=== PATIENT | female | born 1955 | race Caucasian/White ===

== ENCOUNTER 2017-07-22 09:02 | Inpatient (IN) | payer OTHER ==
[2017-07-22] MEDS ORDERED: IPRATROPIUM-ALBUTEROL 3 ML NEB INHALATION STA (09:07)
[2017-07-22] MEDS ORDERED: FUROSEMIDE 10 MG/ML 4 ML VIAL IV STA (09:07)
[2017-07-22] MEDS ORDERED: NITROGLYCERIN OINT 1 INCH/GM PACKET TOPICAL STA (09:07)
[2017-07-22 09:14] LABS: Glucose,Whole Blood 259 mg/dL (75-99)
--- NOTE | 2017-07-22 09:16 | ED ---
General Adult HPI - General Stated complaint: Difficulty Breathing Time Seen by Provider: 07/22/17 09:02 Source: RN notes reviewed - History of Present Illness Initial comments: This is a 61-year-old female presents emergency Department with an unknown past medical history. Patient states she woke up with difficulty breathing and she states she has no problems breathing in the past. Patient denies history of COPD or congestive heart failure. Patient denies any chest pain or palpitations. Patient's only complaint is that she can't breathe. Patient denies any recent history of fever chills or cough. Patient denies any calf tenderness. Patient denies any leg swelling. Patient denies headache patient denies numbness weakness. Patient denies lightheadedness dizziness or near syncopal episode. - Related Data Home Medications Medication Instructions Recorded Confirmed Escitalopram [Lexapro] 10 mg PO HS 07/22/17 07/22/17 Insulin NPH Hum/Reg Insulin Hm 15 unit SQ AC-SUPPER 07/22/17 07/22/17 [NovoLIN 70-30 100 UNIT/ML VIAL] Insulin NPH Hum/Reg Insulin Hm 20 unit SQ AC-BRKFST 07/22/17 07/22/17 [Novolin 70-30 100 Unit/ml Vial] Lisinopril [Zestril] 5 mg PO HS 07/22/17 07/22/17 Meloxicam 7.5 mg PO BID 07/22/17 07/22/17 Allergies Allergy/AdvReac Type Severity Reaction Status Date / Time No Known Allergies Allergy Verified 07/22/17 10:04 Review of Systems ROS Statement: Those systems with pertinent positive or pertinent negative responses have been documented in the HPI. ROS Other: All systems not noted in ROS Statement are negative. Past Medical History - Past Family History Father Family Medical History: Cancer Additional Family Medical History / Comment(s): Father of lung and prostate cancer at the age of 71 or 72 yrs. Mother Family Medical History: Coronary Artery Disease (CAD), CVA/TIA Additional Family Medical History / Comment(s): Mother of a CVA at the age of 87yrs. General Exam - General Exam Comments Initial Comments: GENERAL: Patient is well-developed and well-nourished. Patient is nontoxic and well- hydrated and is in moderate distress. ENT: Neck is soft and supple. No significant lymphadenopathy is noted. Oropharynx is clear. Moist mucous membranes. Neck has full range of motion without eliciting any pain. EYES: The sclera were anicteric and conjunctiva were pink and moist. Extraocular movements were intact and pupils were equal round and reactive to light. Eyelids were unremarkable. PULMONARY: Patient has crackles throughout bilaterally. CARDIOVASCULAR: Patient is tachycardic. ABDOMEN: Soft and nontender with normal bowel sounds. No palpable organomegaly was noted. There is no palpable pulsatile mass. SKIN: Skin is clear with no lesions or rashes and otherwise unremarkable. NEUROLOGIC: Patient is alert and oriented x3. Cranial nerves II through XII are grossly intact. Motor and sensory are also intact. Normal speech, volume and content. Symmetrical smile. MUSCULOSKELETAL: Normal extremities with adequate strength and full range of motion. Minimal edema bilaterally there is no calf tenderness. LYMPHATICS: No significant lymphadenopathy is noted PSYCHIATRIC: Normal psychiatric evaluation. Normal interpersonal interactions appears functionally intact in deals appropriately with others. No signs of depression. No signs of anxiety. Course Vital Signs 07/22/17 07/22/17 07/22/17 09:07 09:25 09:28 Temperature 97.0 F L Pulse Rate 137 H 127 H Respiratory 34 H Rate Blood Pressure 176/94 O2 Sat by Pulse 84 L Oximetry 07/22/17 07/22/17 07/22/17 09:35 10:05 11:00 Temperature Pulse Rate 129 H 110 H 110 H Respiratory 22 20 Rate Blood Pressure 172/77 160/70 O2 Sat by Pulse 96 100 Oximetry 07/22/17 11:58 Temperature Pulse Rate 100 Respiratory 18 Rate Blood Pressure 137/72 O2 Sat by Pulse 99 Oximetry Medical Decision Making - Medical Decision Making EKG shows sinus tachycardia at 137 bpm OK interval is 154 QRS is 94 QT interval 314 QTC is 474. Patient's EKG shows no ST segment elevation or depression or T wave abnormalities are noted. q waves inferiorly and anteriorly Patient's chest x-ray shows diffuse airspace disease. CAT scan shows no PE and again diffuse airspace disease. I put the patient on BiPAP because she was satting in the low 80s this brought her up into the mid 90s and she was much more comfortable. Patient received some Lasix because of the crackles in the lungs and she also received some steroid because of the diffuse airspace disease which could be secondary to pneumonitis. I spoke with Dr. Izaguirre and Dr. Antoine admitted the patient wrote admitting orders I put the patient in the unit. Dr. Antoine will come down to the emergency department to see the patient - Lab Data Result diagrams: 07/22/17 09:21 07/22/17 09:21 Lab Results 07/22/17 07/22/17 07/22/17 Range/Units 09:05 09:21 09:21 WBC 9.8 (3.8-10.6) k/uL RBC 4.70 (3.80-5.40) m/uL Hgb 13.9 (11.4-16.0) gm/dL Hct 45.0 (34.0-46.0) % MCV 95.8 (80.0-100.0) fL MCH 29.5 (25.0-35.0) pg MCHC 30.8 L (31.0-37.0) g/dL RDW 14.4 (11.5-15.5) % Plt Count 314 (150-450) k/uL Neutrophils % 62 % Lymphocytes % 26 % Monocytes % 5 % Eosinophils % 4 % Basophils % 1 % Neutrophils # 6.1 (1.3-7.7) k/uL Lymphocytes # 2.6 (1.0-4.8) k/uL Monocytes # 0.5 (0-1.0) k/uL Eosinophils # 0.4 (0-0.7) k/uL Basophils # 0.1 (0-0.2) k/uL Hypochromasia Moderate PT (9.0-12.0) sec INR (<1.2) APTT (22.0-30.0) sec D-Dimer (<0.60) mg/L FEU Sodium (137-145) mmol/L Potassium (3.5-5.1) mmol/L Chloride (98-107) mmol/L Carbon Dioxide (22-30) mmol/L Anion Gap mmol/L BUN (7-17) mg/dL Creatinine (0.52-1.04) mg/dL Est GFR (MDRD) Af Amer (>60 ml/min/1.73 sqM) Est GFR (MDRD) Non-Af (>60 ml/min/1.73 sqM) Glucose (74-99) mg/dL POC Glucose (mg/dL) 259 H (75-99) mg/dL POC Glu Nuclear Medicine Physician ID Luz Maria Sahu Plasma Lactic Acid Abdoul (0.7-2.0) mmol/L Calcium (8.4-10.2) mg/dL Magnesium (1.6-2.3) mg/dL Total Bilirubin (0.2-1.3) mg/dL AST (14-36) U/L ALT (9-52) U/L Alkaline Phosphatase (38-126) U/L Total Creatine Kinase 194 H (30-135) U/L CK-MB (CK-2) 1.6 (0.0-2.4) ng/mL CK-MB (CK-2) Rel Index 0.8 Troponin I <0.012 (0.000-0.034) ng/mL NT-Pro-B Natriuret Pep pg/mL Total Protein (6.3-8.2) g/dL Albumin (3.5-5.0) g/dL 07/22/17 07/22/17 07/22/17 Range/Units 09:21 09:21 09:21 WBC (3.8-10.6) k/uL RBC (3.80-5.40) m/uL Hgb (11.4-16.0) gm/dL Hct (34.0-46.0) % MCV (80.0-100.0) fL MCH (25.0-35.0) pg MCHC (31.0-37.0) g/dL RDW (11.5-15.5) % Plt Count (150-450) k/uL Neutrophils % % Lymphocytes % % Monocytes % % Eosinophils % % Basophils % % Neutrophils # (1.3-7.7) k/uL Lymphocytes # (1.0-4.8) k/uL Monocytes # (0-1.0) k/uL Eosinophils # (0-0.7) k/uL Basophils # (0-0.2) k/uL Hypochromasia PT 9.9 (9.0-12.0) sec INR 1.0 (<1.2) APTT 22.0 (22.0-30.0) sec D-Dimer 1.44 H (<0.60) mg/L FEU Sodium 142 (137-145) mmol/L Potassium 4.5 (3.5-5.1) mmol/L Chloride 104 (98-107) mmol/L Carbon Dioxide 26 (22-30) mmol/L Anion Gap 12 mmol/L BUN 24 H (7-17) mg/dL Creatinine 0.68 (0.52-1.04) mg/dL Est GFR (MDRD) Af Amer >60 (>60 ml/min/1.73 sqM) Est GFR (MDRD) Non-Af >60 (>60 ml/min/1.73 sqM) Glucose 291 H (74-99) mg/dL POC Glucose (mg/dL) (75-99) mg/dL POC Glu Nuclear Medicine Physician ID Plasma Lactic Acid Abdoul (0.7-2.0) mmol/L Calcium 8.9 (8.4-10.2) mg/dL Magnesium 1.8 (1.6-2.3) mg/dL Total Bilirubin 0.6 (0.2-1.3) mg/dL AST 89 H (14-36) U/L ALT 94 H (9-52) U/L Alkaline Phosphatase 170 H (38-126) U/L Total Creatine Kinase (30-135) U/L CK-MB (CK-2) (0.0-2.4) ng/mL CK-MB (CK-2) Rel Index Troponin I (0.000-0.034) ng/mL NT-Pro-B Natriuret Pep 561 pg/mL Total Protein 8.1 (6.3-8.2) g/dL Albumin 4.3 (3.5-5.0) g/dL 07/22/17 Range/Units 09:21 WBC (3.8-10.6) k/uL RBC (3.80-5.40) m/uL Hgb (11.4-16.0) gm/dL Hct (34.0-46.0) % MCV (80.0-100.0) fL MCH (25.0-35.0) pg MCHC (31.0-37.0) g/dL RDW (11.5-15.5) % Plt Count (150-450) k/uL Neutrophils % % Lymphocytes % % Monocytes % % Eosinophils % % Basophils % % Neutrophils # (1.3-7.7) k/uL Lymphocytes # (1.0-4.8) k/uL Monocytes # (0-1.0) k/uL Eosinophils # (0-0.7) k/uL Basophils # (0-0.2) k/uL Hypochromasia PT (9.0-12.0) sec INR (<1.2) APTT (22.0-30.0) sec D-Dimer (<0.60) mg/L FEU Sodium (137-145) mmol/L Potassium (3.5-5.1) mmol/L Chloride (98-107) mmol/L Carbon Dioxide (22-30) mmol/L Anion Gap mmol/L BUN (7-17) mg/dL Creatinine (0.52-1.04) mg/dL Est GFR (MDRD) Af Amer (>60 ml/min/1.73 sqM) Est GFR (MDRD) Non-Af (>60 ml/min/1.73 sqM) Glucose (74-99) mg/dL POC Glucose (mg/dL) (75-99) mg/dL POC Glu Nuclear Medicine Physician ID Plasma Lactic Acid Abdoul 2.9 H* (0.7-2.0) mmol/L Calcium (8.4-10.2) mg/dL Magnesium (1.6-2.3) mg/dL Total Bilirubin (0.2-1.3) mg/dL AST (14-36) U/L ALT (9-52) U/L Alkaline Phosphatase (38-126) U/L Total Creatine Kinase (30-135) U/L CK-MB (CK-2) (0.0-2.4) ng/mL CK-MB (CK-2) Rel Index Troponin I (0.000-0.034) ng/mL NT-Pro-B Natriuret Pep pg/mL Total Protein (6.3-8.2) g/dL Albumin (3.5-5.0) g/dL Critical Care Time Critical Care Time: Yes Total Critical Care Time: 40 Disposition Clinical Impression: Dyspnea Disposition: ADMITTED IP TO THIS [facility] Time of Disposition: 11:27
[2017-07-22 09:38] LABS: Basophils # (A) 0.1 k/uL (0-0.2); Basophils % (A) 1 %; CHCM 30.5; Eosinophils # (A) 0.4 k/uL (0-0.7); Eosinophils % (A) 4 %; HDW 2.37; HGB 13.9 gm/dL (11.4-16.0); Hypochromasia Moderate; Luc # (Auto) 0.19; Luc % (Auto) 2; Lymphocytes # (A) 2.6 k/uL (1.0-4.8); Lymphocytes % (A) 26 %; MCH 29.5 pg (25.0-35.0); MCHC 30.8 g/dL (31.0-37.0); MCV 95.8 fL (80.0-100.0); Mean Platelet Volume 7.9; Monocytes # (A) 0.5 k/uL (0-1.0); Monocytes % (A) 5 %; Neutrophils # (A) 6.1 k/uL (1.3-7.7); Neutrophils % (A) 62 %; RDW 14.4 % (11.5-15.5); WBC 9.8 k/uL (3.8-10.6); WBC (Perox) 10.17
[2017-07-22 09:55] LABS: Prothrombin Time 9.9 sec (9.0-12.0)
[2017-07-22 09:57] LABS: ALT 94 U/L (9-52); AST 89 U/L (14-36); Alkaline Phosphatase 170 U/L (38-126); Anion Gap 12 mmol/L; Blood Urea Nitrogen 24 mg/dL (7-17); Calcium 8.9 mg/dL (8.4-10.2); Carbon Dioxide 26 mmol/L (22-30); Chloride 104 mmol/L (98-107); Creatine Kinase 194 U/L (30-135); Glucose 291 mg/dL (74-99); Magnesium 1.8 mg/dL (1.6-2.3); Non-African American GFR(MDRD) >60 (>60 ml/min/1.73 sqM); Sodium 142 mmol/L (137-145); Total Bilirubin 0.6 mg/dL (0.2-1.3); Total Protein 8.1 g/dL (6.3-8.2)
[2017-07-22 09:59] LABS: Potassium 4.5 mmol/L (3.5-5.1)
--- NOTE | 2017-07-22 10:00 | XR ---
EXAMINATION TYPE: XR chest 1V portable DATE OF EXAM: 07/22/2017 HISTORY: difficulty breathing. REFERENCE: NONE. FINDINGS: There is diffuse opacification of both lungs with air bronchograms. This may represent bila teral pneumonia or confluent edema. Heart size is obscured. Both CP angles are somewhat blunted. I co uld not exclude small effusions. IMPRESSION: DIFFUSE, BILATERAL AIRSPACE DISEASE.
[2017-07-22 10:09] LABS: Creatine Kinase MB 1.6 ng/mL (0.0-2.4); Troponin I <0.012 ng/mL (0.000-0.034)
[2017-07-22] MEDS ORDERED: RX INFO: IV CONTRAST WAS GIVEN 1 EACH MISC MISCELLANE PRN (10:11)
[2017-07-22] MEDS ORDERED: methylPREDNISolone SOD SUCCI 125 MG/2 ML VIAL IV STA (10:12)
--- NOTE | 2017-07-22 11:17 | CT ---
EXAMINATION TYPE: CT chest angio for PE DATE OF EXAM: 07/22/2017 COMPARISON: NONE HISTORY: Difficulty breathing CT DLP: 548 mGycm Automated exposure control for dose reduction was used. CONTRAST: CT Chest for pulmonary embolism performed with with IV Contrast, patient injected with 100 mL of Omni paque 350. FINDINGS: There is patchy, diffuse groundglass opacification of both lungs. There is no pleural or pe ricardial fluid. The heart is mildly enlarged. There is some shotty axillary adenopathy. There is no internal mammary, mediastinal or definite hilar adenopathy. I do not see evidence of pulmonary embolus. The aorta is normal in caliber without evidence of dissection. There is a small hiatal hernia. Visualized portions of the upper abdomen are otherwise unremarkable. There is mild hypertrophic spondylosis within the spine. There are sclerotic endplate changes at mult iple levels. IMPRESSION: 1. THIS EXAMINATION IS NEGATIVE FOR PULMONARY EMBOLUS. 2. DIFFUSE GROUNDGLASS OPACITY THROUGHOUT BOTH LUNGS. DIFFERENTIAL DIAGNOSIS INCLUDES INTERSTITIAL PN EUMONIA, HYPERSENSITIVITY PNEUMONITIS, DRUG REACTION AND MULTIFOCAL PNEUMONIA. BRONCHOSCOPY WITH ENDO BRONCHIAL WASHINGS WOULD BE SUGGESTED. 3. MILD CARDIOMEGALY.
[2017-07-22] MEDS ORDERED: LEVOFLOXACIN 750MG-D5W PMX 750 MG in DEXTROSE/WATER 1 150ML.BAG IVPB STA (11:28)
[2017-07-22] MEDS ORDERED: NALOXONE 0.4 MG/ML 1 ML VIAL IV PRN (11:29)
[2017-07-22 11:55] LABS: ABG HCO3 31 mmol/L (21-25); ABG PCO2 60 mmHg (35-45); ABG PH 7.33 (7.35-7.45); ABG PO2 72 mmHg (83-108); ABG TCO2 33 mmol/L (19-24)
--- NOTE | 2017-07-22 12:49 | P.CNPUL ---
History of Present Illness Consult date: 07/22/17 Reason for consult: dyspnea, hypoxemia History of present illness: This is a morbidly obese 61-year-old female patient who lives independently at home. The patient has no immediate family members. Her parents of complications of diabetes mellitus and heart disease. She also has no siblings. There is a friend that came with this patient here to the emergency department. Apparently over the past few days the patient was progressively getting more short of breath. This morning she became significantly dyspneic. She reported that she was unable to breathe and perform activities of daily today life. For that reason she called EMS and she was brought into the hospital. She had limited cough. No significant sputum production. No fever chills or night sweats. No hemoptysis. No pleurisy. No angina. No chest pain. No palpitations. No calf tenderness. There is chronic lower extremity edema which has gotten slightly worse over the past few days. She is diabetic. EKG on arrival showed Q waves throughout the leads extending from V1 through V6 and the patient has poor R-wave progression. The chest x-ray showed diffuse bilateral pulmonary infiltrates and following that the patient a CAT scan of the chest which showed patchy diffuse groundglass opacification of the lungs bilaterally. There is also some more consolidation of the lung bases. Minimal mediastinal lymphadenopathy. No evidence of pulmonary embolism. No evidence of any pleural or pericardial effusion. The heart is mildly enlarged. The first set of cardiac enzyme was negative. The proBNP level is at 561. The rest of the blood work and advised are all within normal limits. The patient was placed on a BiPAP at a pressure of 12/6 cm of water with an FiO2 of 100%. The patient was also given a dose of Lasix 40 mg IV push. I this patient emergency department. The patient was tolerating the BiPAP and his saturation was above 90%. Nevertheless she was still short of breath even while in the BiPAP. She was unable to speak in full sentences. She was a bit uncomfortable and diaphoretic. She was alert and conscious and she was able to respond to questions appropriately. She denies having any previous pneumonias. No history of smoking. Most of asthma. Most of emphysema. No exposure to any organic or inorganic material. She has a cat at home. No other significant exposures or travel history. No sick contacts. No hemoptysis. No 70 connected tissue disease or vasculitis or lupus. A stat echocardiogram was done at the bedside and the patient was found to have a. LV function with significant anteroseptal and apical akinesis. The contractility was essentially in the mid ventricle and there was some ballooning of the LV and no significant valvular disruption was noted. Ejection fraction was estimated to be around 25-30%. The patient will be taken to the intensive care unit. I briefly discussed with her the possibility of being intubated and placed on a mechanical ventilator. She was a bit hesitant to this idea knowing that she has no other family members at least for now to make decisions for her if she is completely out under the effect of sedatives. A Pizano catheter will be inserted. On examination the patient is bronchus spastic and wheezy and she is crackling in the mid and lower lung hanna bilaterally. Review of Systems Constitutional: Reports fatigue, Reports weakness Eyes: denies blurred vision, denies bulging eye, denies decreased vision Ears: deny: decreased hearing, ear discharge, earache Ears, nose, mouth and throat: Denies headache, Denies sore throat Cardiovascular: Reports decreased exercise tolerance, Reports rapid heart beat, Reports shortness of breath Respiratory: Reports cough, Reports dyspnea, Reports wheezing Gastrointestinal: Denies abdominal pain, Denies diarrhea, Denies nausea, Denies vomiting Genitourinary: Denies dysuria, Denies hematuria Musculoskeletal: Denies myalgias Integumentary: Denies pruritus, Denies rash Neurological: Denies numbness, Denies weakness Psychiatric: Reports depression Endocrine: Reports as per HPI (Patient has history of diabetes mellitus that seems to be under poor control.) Past Medical History Past Medical History: Diabetes Mellitus, GERD/Reflux, Hyperlipidemia, Hypertension, Osteoarthritis (OA) Additional Past Medical History / Comment(s): Obesity, episodes of bronchitis treated on outpatient basis, diabetes mellitus, depression, osteoarthritis, current cat scratches bilateral legs, arthritis bilateral knees. History of Any Multi-Drug Resistant Organisms: None Reported Past Surgical History: Tonsillectomy Additional Past Surgical History / Comment(s): D&C x 2 Past Anesthesia/Blood Transfusion Reactions: No Reported Reaction Smoking Status: Former smoker - Past Family History Father Family Medical History: Cancer Additional Family Medical History / Comment(s): Father of lung and prostate cancer at the age of 71 or 72 yrs. Mother Family Medical History: Coronary Artery Disease (CAD), CVA/TIA Additional Family Medical History / Comment(s): Mother of a CVA at the age of 87yrs. Medications and Allergies Home Medications Medication Instructions Recorded Confirmed Type Escitalopram [Lexapro] 10 mg PO HS 07/22/17 07/22/17 History Insulin NPH Hum/Reg Insulin Hm 15 unit SQ AC-SUPPER 07/22/17 07/22/17 History [NovoLIN 70-30 100 UNIT/ML VIAL] Insulin NPH Hum/Reg Insulin Hm 20 unit SQ AC-BRKFST 07/22/17 07/22/17 History [Novolin 70-30 100 Unit/ml Vial] Lisinopril [Zestril] 5 mg PO HS 07/22/17 07/22/17 History Meloxicam 7.5 mg PO BID 07/22/17 07/22/17 History Allergies Allergy/AdvReac Type Severity Reaction Status Date / Time No Known Allergies Allergy Verified 07/22/17 10:04 Physical Exam Vitals: Vital Signs Temp Pulse Resp BP Pulse Ox 07/22/17 11:58 100 18 137/72 99 07/22/17 11:00 110 H 20 160/70 100 07/22/17 10:05 110 H 22 172/77 96 07/22/17 09:35 129 H 07/22/17 09:28 176/94 07/22/17 09:25 127 H 07/22/17 09:07 97.0 F L 137 H 34 H 84 L Intake and Output 07/21/17 07/22/17 07/22/17 22:59 06:59 14:59 Other: Weight 102.058 kg Patient Weight 07/23/17 06:59 Weight 102.058 kg The patient is anxious and apprehensive. She is able to tolerate a full face mask attached to a BiPAP unit. She is a bit short of breath even while being on BiPAP in not using excessive muscle breathing yet.Head exam was generally normal. There was no scleral icterus or corneal arcus. Mucous membranes were moist. Neck is short and supple and I was unable to appreciate any JVDs no goiter or neck masses. Lungs sounds are diminished and there are crackles throughout the lung his bilaterally and there is also scattered rhonchi and extremity wheezes throughout the lung hanna. Heart sounds are distant. The lung sounds are quite loud and an echo assessment of the S1-S2 cannot be done. No significant murmurs appreciated.Abdominal exam revealed normal bowel sounds. The abdomen was soft, non-tender, and without masses, organomegaly, or appreciable enlargement of the abdominal aorta. Extremities show trace edema and the patient has scratch uribe and abrasions related to cat scratch. No cephalitis. No cyanosis. No clubbing. Neurologically the patient is awake and alert and she is moving all 4 extremities without any limitation. Psychiatrically she is anxious. She has history of depression. Skin no open wounds or ulcerations this point no cerebritis. Results - Laboratory Findings CBC and BMP: 07/22/17 09:21 07/22/17 09:21 ABG ABG pH 7.33 (7.35-7.45) L 07/22/17 11:53 ABG pCO2 60 mmHg (35-45) H 07/22/17 11:53 ABG pO2 72 mmHg (83-108) L 07/22/17 11:53 ABG O2 Saturation 93.0 % (94-97) L 07/22/17 11:53 PT/INR, D-dimer PT 9.9 sec (9.0-12.0) 07/22/17 09:21 INR 1.0 (<1.2) 07/22/17 09:21 D-Dimer 1.44 mg/L FEU (<0.60) H 07/22/17 09:21 Abnormal lab findings: Abnormal Labs 07/22/17 07/22/17 07/22/17 09:05 09:21 09:21 MCHC 30.8 L D-Dimer ABG pH ABG pCO2 ABG pO2 ABG HCO3 ABG Total CO2 ABG O2 Saturation BUN Glucose POC Glucose (mg/dL) 259 H Plasma Lactic Acid Abdoul AST ALT Alkaline Phosphatase Total Creatine Kinase 194 H 07/22/17 07/22/17 07/22/17 09:21 09:21 09:21 MCHC D-Dimer 1.44 H ABG pH ABG pCO2 ABG pO2 ABG HCO3 ABG Total CO2 ABG O2 Saturation BUN 24 H Glucose 291 H POC Glucose (mg/dL) Plasma Lactic Acid Abdoul 2.9 H* AST 89 H ALT 94 H Alkaline Phosphatase 170 H Total Creatine Kinase 07/22/17 11:53 MCHC D-Dimer ABG pH 7.33 L ABG pCO2 60 H ABG pO2 72 L ABG HCO3 31 H ABG Total CO2 33 H ABG O2 Saturation 93.0 L BUN Glucose POC Glucose (mg/dL) Plasma Lactic Acid Abdoul AST ALT Alkaline Phosphatase Total Creatine Kinase - Diagnostic Findings Chest x-ray: image reviewed CT scan - chest: image reviewed Assessment and Plan Assessment: Assessment 1 acute hypoxic respiratory failure with development of diffuse bilateral ground glass pulmonary infiltrates scattered throughout the lung hanna along with alveolar consolidation of the lung bases. The exact cause is not clear. Rule out cardiogenic pulmonary edema on top of an underlying pneumonia. Rule out noncardiogenic pulmonary edema as including interstitial pneumonias, interstitial lung disease including use of the eosinophilic pneumonias, hypersensitivity pneumonias, acute lung injury from any other nonspecific exposures/infections. 2 acute BiPAP dependent respiratory failure 3 CHF with impaired LV function, awaiting final report on echocardiogram 4 diffuse Q waves extending V1 through V6 with poor R-wave progression suggestive of previous silent myocardial infarction setting of diabetes mellitus 5 diabetes mellitus 6 obesity 7 arthritis 8 anxiety/depression Plan Move the patient immediately to the intensive care unit. Put the patient on a monitor. Monitor the pulmonary status very closely with constellation of intubation mechanical ventilation there is any further compensation decompensation the pulmonary status. Meanwhile we'll insert the Pizano catheter. We'll start the patient on Lasix drip at 5 mg an hour. We'll cover this patient with broad-spectrum antibiotics. The choice of antibiotics will be a combination of Zosyn and Levaquin. Check a Legionella urine antigen. Check sputum Gram stain and culture if possible. Start the patient IV Solu- Medrol. Start the patient on insulin drip for blood sugar control. Start the patient on Lovenox 40 mg subcu for DVT prophylaxis. IV Protonix. Bronchodilators [id number]. Monitor blood gases. Cardiology consultation. Monitor cardiac enzymes. Blood cultures. Bronchoscopy obviously is an option specially the patient get intubated over the next 24-48 hours. We'll need to establish her legal guardian should the patient going to respiratory failure that she is unable to make her own decisions. Condition is extremely critical at this point. Time with Patient: Greater than 30
[2017-07-22] MEDS ORDERED: INSULIN REGULAR BOLUS (FROM DRIP BAG) IV PRN ×2 (12:51→14:20)
[2017-07-22 12:58] LABS: Glucose,Whole Blood 310 mg/dL (75-99)
[2017-07-22] MEDS: FUROSEMIDE 250 MG in SODIUM CHLORIDE 0.9% 225 ML IVP SCH (13:38)
[2017-07-22] MEDS: ENOXAPARIN 40 MG/0.4 ML SYRINGE SQ SCH (13:44)
--- NOTE | 2017-07-22 14:18 | P.HPIM ---
History of Present Illness H&P Date: 07/22/17 Chief Complaint: Shortness of breath 61-year-old female who presented to the emergency room on 07/22/2017 with a chief complaint of difficulty in breathing. The patient states she was getting ready for work this morning and was so short of breath she was unable to get ready this morning. The patient denied any other symptoms, but stated she was unable to breathe. The patient lives alone, so she called her friend to bring her to the emergency room for evaluation. Upon evaluation in the emergency room, she was noted to be tachycardic with a rate in the 130s. Her oxygen saturations were in the low 80s. She was placed on a BiPAP at 100% FiO2. A x-ray of the chest was completed which shows diffuse airspace disease. Her d-dimer was elevated upon admission at 1.44. A CT of the chest was completed which was negative for pulmonary embolism. An EKG was completed which shows sinus tachycardia with a rate in the 130s. It did show Q waves in leads V1 through V6. In the emergency room the patient received a dose of IV Lasix and also IV steroids. Her lactic acid on admission was 2.9. First troponin was negative. BNP was 561. White count was 9.8, hemoglobin 13.9, sodium 142, potassium 4.5. The patient has a history of diabetes mellitus, GERD, hypertension, osteoarthritis, hyperlipidemia, anxiety, and depression. She is a former smoker. The patient was admitted to the intensive care unit for close observation and monitoring under the care of Dr. Izaguirre. Consultations were placed to pulmonary, Dr. Antoine. The patient was seen and examined at the bedside by Dr. Izaguirre. She is currently wearing a BiPAP 100% FiO2. Recent ABGs show a pH of 7.33, CO2 of 60, pO2 of 72, and bicarb of 31. She states her breathing feels slightly improved since this morning. Her blood pressure is stable at the last reading of 137/ 72. She does remain slightly tachycardic with a rate between 100-110. Blood cultures were drawn and are pending. The patient states she has a cat at home and the patient has numerous scratches to her bilateral lower extremities. The patient was placed on a Lasix drip and insulin drip per pulmonary. An indwelling urinary catheter has been inserted. The patient has been placed on Zosyn and Levaquin. An echocardiogram was ordered and results are currently pending. Review of Systems GENERAL: Patient denies fever. Denies chills. EYES: Denies blurred vision. Denies vision changes. Denies eye pain. EARS, NOSE, MOUTH, & THROAT: Denies headache. Denies sore throat. Denies ear pain. RESPIRATORY: Positive for shortness of breath. Denies cough. Denies sputum production. Denies hemoptysis. CARDIOVASCULAR: Denies chest pain or pressure. Denies palpitations. Denies arrhythmias. GASTROINTESTINAL: Denies abdominal pain. Denies diarrhea. Denies constipation. Denies nausea. Denies vomiting. Denies heartburn. Denies blood in the stool. GENITOURINARY: Denies urinary frequency. Denies burning. Denies dysuria. Denies cloudy urine. Denies blood in the urine. MUSCULOSKELETAL: Denies myalgias. Denies joint swelling. Denies decreased range of motion beyond patients baseline. INTEGUMENTARY: Positive for multiple scratches to lower extremities from cat. Denies pruitis. Denies rash. PSYCHIATRIC: Positive for anxiety. Denies suicidal or homicial ideations. ENDOCRINE: Denies weight change. Denies polydipsia. Denies polyuria. HEMATOLOGIC: Denies bleeding disorders. Past Medical History Past Medical History: Diabetes Mellitus, GERD/Reflux, Hyperlipidemia, Hypertension, Osteoarthritis (OA) Additional Past Medical History / Comment(s): Bronchitis, current cat scratches bilateral legs, arthritis bilateral knees. History of Any Multi-Drug Resistant Organisms: None Reported Past Surgical History: Tonsillectomy Additional Past Surgical History / Comment(s): D&C x 2 Past Anesthesia/Blood Transfusion Reactions: No Reported Reaction Smoking Status: Former smoker - Past Family History Father Family Medical History: Cancer Additional Family Medical History / Comment(s): Father of lung and prostate cancer at the age of 71 or 72 yrs. Mother Family Medical History: Coronary Artery Disease (CAD), CVA/TIA Additional Family Medical History / Comment(s): Mother of a CVA at the age of 87yrs. Medications and Allergies Home Medications Medication Instructions Recorded Confirmed Type Escitalopram [Lexapro] 10 mg PO HS 07/22/17 07/22/17 History Insulin NPH Hum/Reg Insulin Hm 15 unit SQ AC-SUPPER 07/22/17 07/22/17 History [NovoLIN 70-30 100 UNIT/ML VIAL] Insulin NPH Hum/Reg Insulin Hm 20 unit SQ AC-BRKFST 07/22/17 07/22/17 History [Novolin 70-30 100 Unit/ml Vial] Lisinopril [Zestril] 5 mg PO HS 07/22/17 07/22/17 History Meloxicam 7.5 mg PO BID 07/22/17 07/22/17 History Allergies Allergy/AdvReac Type Severity Reaction Status Date / Time No Known Allergies Allergy Verified 07/22/17 10:04 Physical Exam Vitals: Vital Signs Temp Pulse Resp BP Pulse Ox 07/22/17 11:58 100 18 137/72 99 07/22/17 11:00 110 H 20 160/70 100 07/22/17 10:05 110 H 22 172/77 96 07/22/17 09:35 129 H 07/22/17 09:28 176/94 07/22/17 09:25 127 H 07/22/17 09:07 97.0 F L 137 H 34 H 84 L Intake and Output 07/21/17 07/22/17 07/22/17 22:59 06:59 14:59 Other: Weight 102.058 kg Patient Weight 07/23/17 06:59 Weight 102.058 kg GENERAL: This is a obese 61-year-old female who appears slightly anxious at the time of examination. Pleasant and cooperative. HEENT: Head is atraumatic, normocephalic. Pupils are equal, round, and reactive to light. Sclerae anicteric. Conjunctivae are clear. Mucus membranes of the mouth are moist. Neck is supple. RESPIRATORY: Decreased air exchange. Lungs coarse throughout. Diminished at the bases. Patient maintaining oxygen saturation greater than 92% on BiPAP. No chest wall tenderness is noted on palpation or with deep breathing. CARDIOVASCULAR: Tachycardic. Regular rate and rhythm. S1 and S2 noted. No systolic or diastolic murmur auscultated. No JVD noted. No S3 or S4 noted. GASTROINTESTINAL: No distention noted. Abdomen soft and round. Normal active bowel sounds auscultated x4 quadrants. No pain or tenderness noted upon palpation. INTEGUMENTARY: Multiple cat scratches noted to bilateral lower extremities. No cyanosis. No jaundice. No rashes noted. No cellulitis noted. EXTREMITIES: 2+ peripheral pulses. +2 lower exterminate bilateral edema. No calf tenderness noted. NEUROLOGIC: Cranial nerves II-XII intact. PSYCHIATRIC: Awake, alert, and oriented X 3. Anxious. Appropriate affect. Intact judgement and insight. Results CBC & Chem 7: 07/22/17 09:21 07/22/17 09:21 Labs: Abnormal Lab Results - Last 24 Hours (Table) 07/22/17 07/22/17 07/22/17 Range/Units 09:05 09:21 09:21 MCHC 30.8 L (31.0-37.0) g/dL D-Dimer (<0.60) mg/L FEU ABG pH (7.35-7.45) ABG pCO2 (35-45) mmHg ABG pO2 (83-108) mmHg ABG HCO3 (21-25) mmol/L ABG Total CO2 (19-24) mmol/L ABG O2 Saturation (94-97) % BUN (7-17) mg/dL Glucose (74-99) mg/dL POC Glucose (mg/dL) 259 H (75-99) mg/dL Plasma Lactic Acid Abdoul (0.7-2.0) mmol/L AST (14-36) U/L ALT (9-52) U/L Alkaline Phosphatase (38-126) U/L Total Creatine Kinase 194 H (30-135) U/L 07/22/17 07/22/17 07/22/17 Range/Units 09: 09:21 09:21 MCHC (31.0-37.0) g/dL D-Dimer 1.44 H (<0.60) mg/L FEU ABG pH (7.35-7.45) ABG pCO2 (35-45) mmHg ABG pO2 (83-108) mmHg ABG HCO3 (21-25) mmol/L ABG Total CO2 (19-24) mmol/L ABG O2 Saturation (94-97) % BUN 24 H (7-17) mg/dL Glucose 291 H (74-99) mg/dL POC Glucose (mg/dL) (75-99) mg/dL Plasma Lactic Acid Abdoul 2.9 H* (0.7-2.0) mmol/L AST 89 H (14-36) U/L ALT 94 H (9-52) U/L Alkaline Phosphatase 170 H (38-126) U/L Total Creatine Kinase (30-135) U/L 07/22/17 Range/Units 11:53 MCHC (31.0-37.0) g/dL D-Dimer (<0.60) mg/L FEU ABG pH 7.33 L (7.35-7.45) ABG pCO2 60 H (35-45) mmHg ABG pO2 72 L (83-108) mmHg ABG HCO3 31 H (21-25) mmol/L ABG Total CO2 33 H (19-24) mmol/L ABG O2 Saturation 93.0 L (94-97) % BUN (7-17) mg/dL Glucose (74-99) mg/dL POC Glucose (mg/dL) (75-99) mg/dL Plasma Lactic Acid Abdoul (0.7-2.0) mmol/L AST (14-36) U/L ALT (9-52) U/L Alkaline Phosphatase (38-126) U/L Total Creatine Kinase (30-135) U/L Thrombosis Risk Factor Assmnt - Choose All That Apply Any of the Below Risk Factors Present?: Yes Each Factor Represents 1 point: Age 41-60 years, Obesity (BMI >25) Other Risk Factors: No Other congenital or acquired thrombophilia - If yes, enter type in comment: No Thrombosis Risk Factor Assessment Total Risk Factor Score: 2 Thrombosis Risk Factor Assessment Level: Low Risk Assessment and Plan Plan: ASSESSMENT: Acute hypoxic respiratory failure requiring BiPAP, present on admission, etiology unclear, rule out underlying cardiac etiology Acute exacerbation of congestive heart failure with impaired LV function, echo results pending EKG with Q waves in leads V1 through V6 with poor R-wave progression suggesting previous silent myocardial infarction Diabetes mellitus, type II, hemoglobin A1c pending Elevated d-dimer, CT of the chest negative for pulmonary embolus Gastroesophageal reflux disease History of tobacco abuse, in remission, patient quit smoking in 2004 Osteoarthritis Anxiety, unspecified Depression, unspecified Obesity: BMI 38.6 PLAN: -ICU management per cartographic aide -Cardiology consulted. Await recommendations and input -First troponin negative, order additional troponin q6 x2 -Continue BiPAP. 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 -Continue IV steroids: 60 mg IV every 6 hours -Insulin drip per cartographic aide order, monitor capillary blood glucose levels -Continue antibiotics: Zosyn and Levaquin -Lasix drip per cartographic aide order -Indwelling urinary catheter with accurate I's and O's -Obtain hemoglobin A1c, C-reactive protein, and sedimentation rate -Await blood culture results -Await echo results -Home meds as appropriate -Monitor labs -GI prophylaxis: Protonix 40 mg IV daily -DVT prophylaxis: Lovenox 40 mg subcu daily -Prognosis remains guarded as patient's condition is critical at this point Nurse practitioner note has been reviewed by physician. Signing provider agrees with the documented findings, assessment, and plan of care.
[2017-07-22] MEDS ORDERED: INSULIN REGULAR 100 UNIT in SODIUM CHLORIDE 0.9% 100 ML IV SCH (14:30)
--- NOTE | 2017-07-22 14:42 | PCN ---
PROCEDURE NOTE TRIPLE LUMEN CATHETER PLACEMENT: SITE OF INSERTION: Right femoral vein. PREOP DIAGNOSIS: Acute hypoxic respiratory failure. POSTOP DIAGNOSIS: Acute hypoxic respiratory failure. Indication Hemodynamic monitoring/Intravenous access. A time-out was completed verifying correct patient, procedure, site, positioning, and implant(s) or special equipment if applicable. The patient was placed in a dependent position appropriate for triple lumen catheter placement based on the vein to be cannulated. The patient's right groin was prepped and draped in sterile fashion. 1% Lidocaine was used to anesthetize the surrounding skin area. A triple lumen 9F Cordis catheter was introduced into the common femoral vein using Seldinger technique. The catheter was threaded smoothly over the guide wire and appropriate blood return was obtained. Each lumen of the catheter was evacuated of air and flushed with sterile saline. The catheter was then sutured in place to the skin and a sterile dressing applied. Perfusion to the extremity distal to the point of catheter insertion was checked and found to be adequate. No bedside complications. MMODL / IJN: [id number] /
[2017-07-22 15:26] LABS: Glucose,Whole Blood 295 mg/dL (75-99)
[2017-07-22] MEDS: PANTOPRAZOLE 40 MG/10 ML VIAL IVP SCH (15:37)
[2017-07-22] MEDS ORDERED: ACETAMINOPHEN TAB 325 MG TAB PO PRN (15:47)
[2017-07-22 16:24] LABS: Glucose,Whole Blood 194 mg/dL (75-99)
[2017-07-22] MEDS: PIPERACILLIN-TAZOBACTAM 3.375 GM in DEXTROSE/WATER 1 50ML.BAG IVPB SCH ×2 (16:53→23:36)
[2017-07-22] MEDS: SODIUM CHLORIDE 0.9% 1,000 ML IV SCH (16:58)
[2017-07-22 17:01] LABS: Glucose,Whole Blood 125 mg/dL (75-99)
[2017-07-22] MEDS ORDERED: methylPREDNISolone SOD SUCCI 125 MG/2 ML VIAL IV SCH (18:00)
[2017-07-22] MEDS: methylPREDNISolone SOD SUCCI 125 MG/2 ML VIAL IV SCH ×2 (18:08→23:35)
[2017-07-22 18:14] LABS: Glucose,Whole Blood 86 mg/dL (75-99)
[2017-07-22 18:31] LABS: Glucose,Whole Blood 96 mg/dL (75-99)
[2017-07-22 19:02] LABS: Glucose,Whole Blood 117 mg/dL (75-99)
[2017-07-22 20:04] LABS: Glucose,Whole Blood 165 mg/dL (75-99)
[2017-07-22 21:12] LABS: Glucose,Whole Blood 174 mg/dL (75-99)
[2017-07-22] MEDS: METOPROLOL TARTRATE 25 MG TAB PO SCH (21:13)
[2017-07-22 22:02] LABS: Glucose,Whole Blood 181 mg/dL (75-99)
--- NOTE | 2017-07-22 22:29 | P.CRDCN ---
History of Present Illness Consult date: 07/22/17 Chief complaint: Shortness of breath History of present illness: This is a pleasant 61 year old female patient with a past medical history significant for morbid obesity, diabetes, hypertension, and dyslipidemia without any history of coronary artery disease or congestive heart failure or cardiac arrhythmia who never seen any bellhop captain in the past was brought to the emergency room by ambulance with shortness of breath. The patient was in her usual state of health until earlier today when she developed a sudden onset of shortness of breath. She did not have any symptoms of chest pain or chest discomfort. No dizziness or lightheadedness. No syncope. The patient lives by herself. A friend of hers called the ambulance and the patient was brought to the emergency room where she was found to be in acute respiratory distress and she was hypoxic and was placed on BiPAP. The patient underwent a CTA of the chest which showed no evidence of PE. The chest x-ray showed finding consistent with bilateral infiltrate and possible CHF. The EKG showed sinus rhythm with poor R-wave progression and what it seems to be Q-wave across the whole chest leads. The patient seems that she suffered an acute anterolateral septal myocardial infarction in the past. An echocardiogram was performed at bedside and revealed severe lead impaired LV function with an ejection fraction around 30-35% with mid ventricle and apical hypokinesia and only portions of the LV arlen are the basal LV only. The first set of cardiac enzymes came in to be unremarkable but subsequently the second set came in to be mildly abnormal. The patient was admitted to the intensive care unit. She was started on Lasix drip. She was also on BiPAP. I did start the patient on beta harley, AP inhibitor, and statin. She was already on aspirin which I continued. Continue heparin IV. I will follow-up with the serial cardiac enzymes to assess if the patient suffered an acute coronary syndrome. She stated that she never had any heart catheterization in the past and never seen any bellhop captain in the past. And again she stated that she did not have any symptoms of chest pain or chest discomfort. Past Medical History Past Medical History: Diabetes Mellitus, GERD/Reflux, Hyperlipidemia, Hypertension, Osteoarthritis (OA) Additional Past Medical History / Comment(s): Bronchitis, current cat scratches bilateral legs, arthritis bilateral knees. History of Any Multi-Drug Resistant Organisms: None Reported Past Surgical History: Tonsillectomy Additional Past Surgical History / Comment(s): D&C x 2 Past Anesthesia/Blood Transfusion Reactions: No Reported Reaction Past Psychological History: Anxiety, Depression Additional Psychological History / Comment(s): Pt resides alone. She does not drive, a friend takes her to [email or web address]. She works at [email or web address]. Smoking Status: Former smoker Past Alcohol Use History: None Reported Additional Past Alcohol Use History / Comment(s): Pt started smoking in 1977 and quit in 2004. Past Drug Use History: None Reported - Past Family History Father Family Medical History: Cancer Additional Family Medical History / Comment(s): Father of lung and prostate cancer at the age of 71 or 72 yrs. Mother Family Medical History: Coronary Artery Disease (CAD), CVA/TIA Additional Family Medical History / Comment(s): Mother of a CVA at the age of 87yrs. Medications and Allergies Home Medications Medication Instructions Recorded Confirmed Type Escitalopram [Lexapro] 10 mg PO HS 07/22/17 07/22/17 History Insulin NPH Hum/Reg Insulin Hm 15 unit SQ AC-SUPPER 07/22/17 07/22/17 History [NovoLIN 70-30 100 UNIT/ML VIAL] Insulin NPH Hum/Reg Insulin Hm 20 unit SQ AC-BRKFST 07/22/17 07/22/17 History [Novolin 70-30 100 Unit/ml Vial] Lisinopril [Zestril] 5 mg PO HS 07/22/17 07/22/17 History Meloxicam 7.5 mg PO BID 07/22/17 07/22/17 History Allergies Allergy/AdvReac Type Severity Reaction Status Date / Time No Known Allergies Allergy Verified 07/22/17 10:04 Physical Exam Vitals: Vital Signs Temp Pulse Pulse Resp BP Pulse Ox 07/22/17 19:00 88 11 L 157/57 94 L 07/22/17 18:30 89 16 133/72 100 07/22/17 18:00 97 42 H 118/52 100 07/22/17 17:30 77 25 H 128/54 98 07/22/17 17:00 87 24 160/68 99 07/22/17 16:30 91 20 152/66 98 07/22/17 16:03 99 07/22/17 16:00 99 F 89 23 142/57 99 07/22/17 15:30 89 27 H 158/67 99 07/22/17 15:00 97 27 H 170/72 98 07/22/17 14:30 96 32 H 154/72 97 07/22/17 14:00 101 H 22 168/61 97 07/22/17 13:55 103 H 07/22/17 13:30 102 H 27 H 172/62 98 07/22/17 13:20 106 H 41 H 171/69 98 07/22/17 13:10 106 H 25 H 179/66 96 07/22/17 13:00 105 H 27 H 179/66 97 07/22/17 12:56 99 F 106 H 36 H 179/66 91 L 07/22/17 11:58 100 18 137/72 99 07/22/17 11:00 110 H 20 160/70 100 07/22/17 10:05 110 H 22 172/77 96 07/22/17 09:35 129 H 07/22/17 09:28 176/94 07/22/17 09:25 127 H 07/22/17 09:07 97.0 F L 137 H 34 H 84 L Intake and Output 07/22/17 07/22/17 07/22/17 06:59 14:59 22:59 Intake Total 20 117.793 Output Total 1410 1075 Balance -1390 -957.207 Intake: IV 20 100 Normal Saline 20 100 Intake, IV Titration 17.793 Amount Insulin Regular 100 unit 17.793 In Sodium Chloride 0.9% 100 ml @ Per Protocol IV .Q0M [facility] Rx#:[id number] Output: Urine 1410 1075 Uretheral (Pizano) 200 Other: Voiding Method Indwelling Catheter Weight 102.058 kg 117.9 kg Patient Weight 07/23/17 06:59 Weight 117.9 kg - Constitutional General appearance: mild distress - Respiratory Respiratory: bilateral: rales, wheezing - Cardiovascular Rhythm: regular Heart sounds: normal: S1, S2 Results 07/22/17 09:21 07/22/17 09:21 Cardiac Enzymes 07/22/17 07/22/17 07/22/17 Range/Units 09:21 09:21 15:20 AST 89 H (14-36) U/L CK-MB (CK-2) 1.6 (0.0-2.4) ng/mL Troponin I <0.012 0.172 H* (0.000-0.034) ng/mL Coagulation 07/22/17 Range/Units 09:21 PT 9.9 (9.0-12.0) sec APTT 22.0 (22.0-30.0) sec CBC 07/22/17 Range/Units 09:21 WBC 9.8 (3.8-10.6) k/uL RBC 4.70 (3.80-5.40) m/uL Hgb 13.9 (11.4-16.0) gm/dL Hct 45.0 (34.0-46.0) % Plt Count 314 (150-450) k/uL Comprehensive Metabolic Panel 07/22/17 Range/Units 09:21 Sodium 142 (137-145) mmol/L Potassium 4.5 (3.5-5.1) mmol/L Chloride 104 (98-107) mmol/L Carbon Dioxide 26 (22-30) mmol/L BUN 24 H (7-17) mg/dL Creatinine 0.68 (0.52-1.04) mg/dL Glucose 291 H (74-99) mg/dL Calcium 8.9 (8.4-10.2) mg/dL AST 89 H (14-36) U/L ALT 94 H (9-52) U/L Alkaline Phosphatase 170 H (38-126) U/L Total Protein 8.1 (6.3-8.2) g/dL Albumin 4.3 (3.5-5.0) g/dL Current Medications Generic Name Dose Route Start Last Admin Trade Name Freq PRN Reason Stop Dose Admin Acetaminophen 650 mg 07/22/17 15:47 Tylenol Tab PO Q4HR PRN Fever and/or Mild Pain Atorvastatin Calcium 40 mg 07/23/17 09:00 Lipitor PO DAILY ANDREW Enoxaparin Sodium 40 mg 07/22/17 13:00 07/22/17 13:44 Lovenox SQ 40 mg DAILY ANDREW Administration Levofloxacin 750 mg/ IV 150 mls @ 100 mls/hr 07/23/17 12:00 Solution IVPB Q24H ANDREW Furosemide 250 mg/ Sodium 250 mls @ 5 mls/hr 07/22/17 13:00 07/22/17 13:38 Chloride IVP 5 mg/hr .Q24H ANDREW 5 mls/hr 5 MG/HR Administration Piperacillin/Tazobactam/ 50 mls @ 12.5 mls/hr 07/22/17 16:00 07/22/17 16:53 Dextrose 3.375 gm/ IV Solution IVPB 12.5 mls/hr Q8HR ANDREW Administration Insulin Human Regular 100 unit 101 mls @ 0 mls/hr 07/22/17 14:30 07/22/17 22: 02 / Sodium Chloride IV 3 unit/hr .Q0M ANDREW 3.03 mls/hr Protocol Titration Per Protocol Sodium Chloride 1,000 mls @ 20 mls/hr 07/22/17 16:00 07/22/17 16:58 Saline 0.9% IV 20 mls/hr .Q24H ANDREW Administration Lisinopril 2.5 mg 07/23/17 09:00 Zestril PO DAILY ANDREW Methylprednisolone Sodium Succinate 60 mg 07/22/17 18:00 07/22/17 18:08 Solu-Medrol IV 60 mg Q6HR ANDREW Administration Metoprolol Tartrate 25 mg 07/22/17 21:00 07/22/17 21:13 Lopressor PO 25 mg BID ANDREW Administration Miscellaneous Information 1 each 07/22/17 10:11 Rx Info: Iv Contrast Was Given MISCELLANE 07/24/17 10:11 DAILY PRN Per Protocol Naloxone HCl 0.2 mg 07/22/17 11:29 Narcan IV Q2M PRN Opioid Reversal Pantoprazole Sodium 40 mg 07/22/17 14:15 07/22/17 15:37 Protonix IVP 40 mg DAILY ANDREW Administration Intake and Output 07/22/17 07/22/17 07/22/17 06:59 14:59 22:59 Intake Total 20 117.793 Output Total 1410 1075 Balance -1390 -957.207 Intake: IV 20 100 Normal Saline 20 100 Intake, IV Titration 17.793 Amount Insulin Regular 100 unit 17.793 In Sodium Chloride 0.9% 100 ml @ Per Protocol IV .Q0M ANDREW Rx#:[id number] Output: Urine 1410 1075 Uretheral (Pizano) 200 Other: Voiding Method Indwelling Catheter Weight 102.058 kg 117.9 kg Patient Weight 07/23/17 06:59 Weight 117.9 kg 07/22/17 09:21 07/22/17 09:21 Assessment and Plan Assessment: This is a pleasant 61-year-old female patient with no prior cardiac history but history of obesity, diabetes, hypertension, dyslipidemia was brought to the emergency room with an acute respiratory distress and what it seems to be flash pulmonary edema. She has abnormal EKG indicating prior anterior myocardial infarction. The bedside echocardiogram revealed severe left ventricular systolic dysfunction. Currently the patient is on heparin IV. She is on aspirin as well as. I would add metoprolol, lisinopril, and Lipitor to the current medical treatment. Follow-up with the serial cardiac enzymes. I do feel that the patient needs to have a coronary angiogram down the line to assess for severe underlying coronary artery disease which is likely the scenario. We'll continue following up with the patient and thank you for allowing us participate in her care
[2017-07-22 23:20] LABS: Glucose,Whole Blood 179 mg/dL (75-99)
[2017-07-23 00:21] LABS: Glucose,Whole Blood 138 mg/dL (75-99)
[2017-07-23 01:04] LABS: Glucose,Whole Blood 142 mg/dL (75-99)
[2017-07-23 02:13] LABS: Glucose,Whole Blood 227 mg/dL (75-99)
[2017-07-23 03:07] LABS: Glucose,Whole Blood 200 mg/dL (75-99)
[2017-07-23 03:38] LABS: Basophils % (A) 0 %; Eosinophils # (A) 0.1 k/uL (0-0.7); Eosinophils % (A) 1 %; HCT 37.2 % (34.0-46.0); HDW 2.29; HGB 11.7 gm/dL (11.4-16.0); Hypochromasia Slight; Luc # (Auto) 0.02; Luc % (Auto) 0; Lymphocytes # (A) 0.5 k/uL (1.0-4.8); Lymphocytes % (A) 3 %; MCH 29.7 pg (25.0-35.0); MCHC 31.5 g/dL (31.0-37.0); MCV 94.2 fL (80.0-100.0); Mean Platelet Volume 7.6; Monocytes # (A) 0.2 k/uL (0-1.0); Monocytes % (A) 1 %; Neutrophils # (A) 17.5 k/uL (1.3-7.7); Neutrophils % (A) 95 %; RBC 3.95 m/uL (3.80-5.40); RDW 15.4 % (11.5-15.5); WBC 18.4 k/uL (3.8-10.6); WBC (Perox) 19.47
[2017-07-23 03:50] LABS: ALT 87 U/L (9-52); AST 64 U/L (14-36); Alkaline Phosphatase 130 U/L (38-126); Anion Gap 10 mmol/L; Blood Urea Nitrogen 29 mg/dL (7-17); Calcium 9.1 mg/dL (8.4-10.2); Carbon Dioxide 31 mmol/L (22-30); Chloride 98 mmol/L (98-107); Glucose 203 mg/dL (74-99); Magnesium 1.5 mg/dL (1.6-2.3); Non-African American GFR(MDRD) 57 (>60 ml/min/1.73 sqM); Phosphorus 3.7 mg/dL (2.5-4.5); Potassium 3.5 mmol/L (3.5-5.1); Sodium 139 mmol/L (137-145); Total Bilirubin 0.8 mg/dL (0.2-1.3); Total Protein 6.1 g/dL (6.3-8.2)
[2017-07-23 04:01] LABS: Glucose,Whole Blood 187 mg/dL (75-99)
[2017-07-23] MEDS ORDERED: POTASSIUM CHLORIDE ER 20 MEQ TAB.ER PO SCH (05:00)
[2017-07-23] MEDS: MAGNESIUM SULFATE-D5W PMX 1 GM in DEXTROSE/WATER 1 100ML.BAG IVPB SCH ×2 (05:00→05:46)
[2017-07-23 05:01] LABS: Glucose,Whole Blood 152 mg/dL (75-99)
[2017-07-23] MEDS: POTASSIUM CHLORIDE ER 20 MEQ TAB.ER PO SCH ×3 (05:48→11:06)
[2017-07-23] MEDS: methylPREDNISolone SOD SUCCI 125 MG/2 ML VIAL IV SCH ×4 (05:51→23:27)
[2017-07-23 06:03] LABS: Glucose,Whole Blood 172 mg/dL (75-99)
[2017-07-23 07:21] LABS: Glucose,Whole Blood 231 mg/dL (75-99)
--- NOTE | 2017-07-23 07:34 | XR ---
EXAMINATION TYPE: XR chest 1V DATE OF EXAM: 07/23/2017 HISTORY: respiratory failure. REFERENCE: Previous study dated 07/22/2017. FINDINGS: There has been marked improvement in the aeration of both lungs. There continues to be patc hy groundglass opacity in both lungs but this is improved dramatically. Heart size upper limits of no rmal. No definite pleural fluid is seen. IMPRESSION: FAIRLY MARKED IMPROVEMENT IN THE APPEARANCE OF THE LUNGS COMPARED TO THE PREVIOUS STUDY.
[2017-07-23] MEDS: ATORVASTATIN 40 MG TAB PO SCH (08:12)
[2017-07-23] MEDS: ENOXAPARIN 40 MG/0.4 ML SYRINGE SQ SCH (08:12)
[2017-07-23] MEDS: LISINOPRIL 2.5 MG TAB PO SCH (08:12)
[2017-07-23] MEDS: PANTOPRAZOLE 40 MG/10 ML VIAL IVP SCH (08:12)
[2017-07-23] MEDS: METOPROLOL TARTRATE 25 MG TAB PO SCH ×2 (08:12→20:14)
[2017-07-23 08:23] LABS: Glucose,Whole Blood 221 mg/dL (75-99)
[2017-07-23] MEDS: PIPERACILLIN-TAZOBACTAM 3.375 GM in DEXTROSE/WATER 1 50ML.BAG IVPB SCH (09:12)
[2017-07-23 09:21] LABS: Glucose,Whole Blood 175 mg/dL (75-99)
[2017-07-23 10:06] LABS: Glucose,Whole Blood 136 mg/dL (75-99)
--- NOTE | 2017-07-23 11:22 | P.PN ---
Subjective Progress Note Date: 07/23/17 Principal diagnosis: CHF This is a pleasant 61 year old female patient with a past medical history significant for morbid obesity, diabetes, hypertension, and dyslipidemia without any history of coronary artery disease or congestive heart failure or cardiac arrhythmia who never seen any non ferrous material handler in the past was brought to the emergency room by ambulance with shortness of breath. The patient was in her usual state of health until earlier today when she developed a sudden onset of shortness of breath. She did not have any symptoms of chest pain or chest discomfort. No dizziness or lightheadedness. No syncope. The patient lives by herself. A friend of hers called the ambulance and the patient was brought to the emergency room where she was found to be in acute respiratory distress and she was hypoxic and was placed on BiPAP. The patient underwent a CTA of the chest which showed no evidence of PE. The chest x-ray showed finding consistent with bilateral infiltrate and possible CHF. The EKG showed sinus rhythm with poor R-wave progression and what it seems to be Q-wave across the whole chest leads. The patient seems that she suffered an acute anterolateral septal myocardial infarction in the past. An echocardiogram was performed at bedside and revealed severe lead impaired LV function with an ejection fraction around 30-35% with mid ventricle and apical hypokinesia and only portions of the LV arlen are the basal LV only. The first set of cardiac enzymes came in to be unremarkable but subsequently the second set came in to be mildly abnormal. The patient was admitted to the intensive care unit. She was started on Lasix drip. She was also on BiPAP. I did start the patient on beta harley, AP inhibitor, and statin. She was already on aspirin which I continued. Continue heparin IV. I will follow-up with the serial cardiac enzymes to assess if the patient suffered an acute coronary syndrome. She stated that she never had any heart catheterization in the past and never seen any non ferrous material handler in the past. And again she stated that she did not have any symptoms of chest pain or chest discomfort. On follow-up with the patient today on July [id number], she is doing significantly better. She is only on 3 L oxygen through nasal cannula. She denies having any chest pain or discomfort. The shortness of breath has improved significantly. Currently she is on metoprolol, Lipitor, and Lovenox. I would add aspirin, DC the Lovenox, and start the patient on heparin drip later on tonight. I do recommend getting a heart catheterization next week to rule out any severe underlying CAD. Objective - Vital Signs Vital signs: Vital Signs Temp 98.6 F 07/23/17 09:00 Pulse 69 07/23/17 10:00 Resp 22 07/23/17 10:00 BP 113/40 07/23/17 10:00 Pulse Ox 94 L 07/23/17 10:00 Intake & Output 07/22/17 07/23/17 07/23/17 18:59 06:59 18:59 Intake Total 135.992 461.914 82.333 Output Total 2485 1305 540 Balance -2349.008 -843.086 -457.667 Weight 117.9 kg 112.7 kg Intake: IV 120 130 60 Normal Saline 120 130 60 Intake, IV Titration 15.992 271.914 22.333 Amount Insulin Regular 100 unit 15.992 21.914 22.333 In Sodium Chloride 0.9% 100 ml @ Per Protocol IV .Q0M ANDREW Rx#:[id number] Magnesium Sulfate-D5w Pmx 200 1 gm In Dextrose/Water 1 100ml.bag @ 100 mls/hr IVPB Q1H ANDREW Rx#: [id number] Piperacillin-Tazobactam 3 50 .375 gm In Dextrose/Water 1 50ml.bag @ 12.5 mls/hr IVPB Q8HR ANDREW Rx#: [id number] Oral 60 Output: Urine 2485 1305 540 Uretheral (Pizano) 200 Other: Voiding Method Indwelling Catheter Indwelling Catheter Indwelling Catheter - Constitutional General appearance: Present: no acute distress - Respiratory Respiratory: bilateral: rhonchi - Cardiovascular Rhythm: regular Heart sounds: normal: S1, S2 - Labs CBC & Chem 7: 07/23/17 03:18 07/23/17 03:18 Labs: Abnormal Lab Results - Last 24 Hours (Table) 07/22/17 07/22/17 07/22/17 Range/Units 09:21 09:21 11:53 WBC (3.8-10.6) k/uL Neutrophils # (1.3-7.7) k/uL Lymphocytes # (1.0-4.8) k/uL ESR (0-20) mm/hr ABG pH 7.33 L (7.35-7.45) ABG pCO2 60 H (35-45) mmHg ABG pO2 72 L (83-108) mmHg ABG HCO3 31 H (21-25) mmol/L ABG Total CO2 33 H (19-24) mmol/L ABG O2 Saturation 93.0 L (94-97) % Carbon Dioxide (22-30) mmol/L BUN (7-17) mg/dL Glucose (74-99) mg/dL POC Glucose (mg/dL) (75-99) mg/dL Plasma Lactic Acid Abdoul 2.9 H* (0.7-2.0) mmol/L Magnesium (1.6-2.3) mg/dL AST (14-36) U/L ALT (9-52) U/L Alkaline Phosphatase (38-126) U/L Troponin I (0.000-0.034) ng/mL C-Reactive Protein 10.6 H (<10.0) mg/L Total Protein (6.3-8.2) g/dL Albumin (3.5-5.0) g/dL 07/22/17 07/22/17 07/22/17 Range/Units 12:56 15:17 15:20 WBC (3.8-10.6) k/uL Neutrophils # (1.3-7.7) k/uL Lymphocytes # (1.0-4.8) k/uL ESR 26 H (0-20) mm/hr ABG pH (7.35-7.45) ABG pCO2 (35-45) mmHg ABG pO2 (83-108) mmHg ABG HCO3 (21-25) mmol/L ABG Total CO2 (19-24) mmol/L ABG O2 Saturation (94-97) % Carbon Dioxide (22-30) mmol/L BUN (7-17) mg/dL Glucose (74-99) mg/dL POC Glucose (mg/dL) 310 H 295 H (75-99) mg/dL Plasma Lactic Acid Abdoul (0.7-2.0) mmol/L Magnesium (1.6-2.3) mg/dL AST (14-36) U/L ALT (9-52) U/L Alkaline Phosphatase (38-126) U/L Troponin I (0.000-0.034) ng/mL C-Reactive Protein (<10.0) mg/L Total Protein (6.3-8.2) g/dL Albumin (3.5-5.0) g/dL 07/22/17 07/22/17 07/22/17 Range/Units 15:20 16:22 16:59 WBC (3.8-10.6) k/uL Neutrophils # (1.3-7.7) k/uL Lymphocytes # (1.0-4.8) k/uL ESR (0-20) mm/hr ABG pH (7.35-7.45) ABG pCO2 (35-45) mmHg ABG pO2 (83-108) mmHg ABG HCO3 (21-25) mmol/L ABG Total CO2 (19-24) mmol/L ABG O2 Saturation (94-97) % Carbon Dioxide (22-30) mmol/L BUN (7-17) mg/dL Glucose (74-99) mg/dL POC Glucose (mg/dL) 194 H 125 H (75-99) mg/dL Plasma Lactic Acid Adboul (0.7-2.0) mmol/L Magnesium (1.6-2.3) mg/dL AST (14-36) U/L ALT (9-52) U/L Alkaline Phosphatase (38-126) U/L Troponin I 0.172 H* (0.000-0.034) ng/mL C-Reactive Protein (<10.0) mg/L Total Protein (6.3-8.2) g/dL Albumin (3.5-5.0) g/dL 07/22/17 07/22/17 07/22/17 Range/Units 19:00 20:02 21:10 WBC (3.8-10.6) k/uL Neutrophils # (1.3-7.7) k/uL Lymphocytes # (1.0-4.8) k/uL ESR (0-20) mm/hr ABG pH (7.35-7.45) ABG pCO2 (35-45) mmHg ABG pO2 (83-108) mmHg ABG HCO3 (21-25) mmol/L ABG Total CO2 (19-24) mmol/L ABG O2 Saturation (94-97) % Carbon Dioxide (22-30) mmol/L BUN (7-17) mg/dL Glucose (74-99) mg/dL POC Glucose (mg/dL) 117 H 165 H 174 H (75-99) mg/dL Plasma Lactic Acid Abdoul (0.7-2.0) mmol/L Magnesium (1.6-2.3) mg/dL AST (14-36) U/L ALT (9-52) U/L Alkaline Phosphatase (38-126) U/L Troponin I (0.000-0.034) ng/mL C-Reactive Protein (<10.0) mg/L Total Protein (6.3-8.2) g/dL Albumin (3.5-5.0) g/dL 07/22/17 07/22/17 07/22/17 Range/Units 21:28 22:01 23:18 WBC (3.8-10.6) k/uL Neutrophils # (1.3-7.7) k/uL Lymphocytes # (1.0-4.8) k/uL ESR (0-20) mm/hr ABG pH (7.35-7.45) ABG pCO2 (35-45) mmHg ABG pO2 (83-108) mmHg ABG HCO3 (21-25) mmol/L ABG Total CO2 (19-24) mmol/L ABG O2 Saturation (94-97) % Carbon Dioxide (22-30) mmol/L BUN (7-17) mg/dL Glucose (74-99) mg/dL POC Glucose (mg/dL) 181 H 179 H (75-99) mg/dL Plasma Lactic Acid Abdoul (0.7-2.0) mmol/L Magnesium (1.6-2.3) mg/dL AST (14-36) U/L ALT (9-52) U/L Alkaline Phosphatase (38-126) U/L Troponin I 0.477 H* (0.000-0.034) ng/mL C-Reactive Protein (<10.0) mg/L Total Protein (6.3-8.2) g/dL Albumin (3.5-5.0) g/dL 07/23/17 07/23/17 07/23/17 Range/Units 00:19 01:02 02:11 WBC (3.8-10.6) k/uL Neutrophils # (1.3-7.7) k/uL Lymphocytes # (1.0-4.8) k/uL ESR (0-20) mm/hr ABG pH (7.35-7.45) ABG pCO2 (35-45) mmHg ABG pO2 (83-108) mmHg ABG HCO3 (21-25) mmol/L ABG Total CO2 (19-24) mmol/L ABG O2 Saturation (94-97) % Carbon Dioxide (22-30) mmol/L BUN (7-17) mg/dL Glucose (74-99) mg/dL POC Glucose (mg/dL) 138 H 142 H 227 H (75-99) mg/dL Plasma Lactic Acid Abdoul (0.7-2.0) mmol/L Magnesium (1.6-2.3) mg/dL AST (14-36) U/L ALT (9-52) U/L Alkaline Phosphatase (38-126) U/L Troponin I (0.000-0.034) ng/mL C-Reactive Protein (<10.0) mg/L Total Protein (6.3-8.2) g/dL Albumin (3.5-5.0) g/dL 07/23/17 07/23/17 07/23/17 Range/Units 03:05 03:18 03:18 WBC 18.4 H (3.8-10.6) k/uL Neutrophils # 17.5 H (1.3-7.7) k/uL Lymphocytes # 0.5 L (1.0-4.8) k/uL ESR (0-20) mm/hr ABG pH (7.35-7.45) ABG pCO2 (35-45) mmHg ABG pO2 (83-108) mmHg ABG HCO3 (21-25) mmol/L ABG Total CO2 (19-24) mmol/L ABG O2 Saturation (94-97) % Carbon Dioxide 31 H (22-30) mmol/L BUN 29 H (7-17) mg/dL Glucose 203 H (74-99) mg/dL POC Glucose (mg/dL) 200 H (75-99) mg/dL Plasma Lactic Acid Abdoul (0.7-2.0) mmol/L Magnesium 1.5 L (1.6-2.3) mg/dL AST 64 H (14-36) U/L ALT 87 H (9-52) U/L Alkaline Phosphatase 130 H (38-126) U/L Troponin I (0.000-0.034) ng/mL C-Reactive Protein (<10.0) mg/L Total Protein 6.1 L (6.3-8.2) g/dL Albumin 3.2 L (3.5-5.0) g/dL 07/23/17 07/23/17 07/23/17 Range/Units 03:18 03:59 04:59 WBC (3.8-10.6) k/uL Neutrophils # (1.3-7.7) k/uL Lymphocytes # (1.0-4.8) k/uL ESR (0-20) mm/hr ABG pH (7.35-7.45) ABG pCO2 (35-45) mmHg ABG pO2 (83-108) mmHg ABG HCO3 (21-25) mmol/L ABG Total CO2 (19-24) mmol/L ABG O2 Saturation (94-97) % Carbon Dioxide (22-30) mmol/L BUN (7-17) mg/dL Glucose (74-99) mg/dL POC Glucose (mg/dL) 187 H 152 H (75-99) mg/dL Plasma Lactic Acid Abdoul (0.7-2.0) mmol/L Magnesium (1.6-2.3) mg/dL AST (14-36) U/L ALT (9-52) U/L Alkaline Phosphatase (38-126) U/L Troponin I 0.617 H* (0.000-0.034) ng/mL C-Reactive Protein (<10.0) mg/L Total Protein (6.3-8.2) g/dL Albumin (3.5-5.0) g/dL 07/23/17 07/23/17 07/23/17 Range/Units 06:00 07:20 08:19 WBC (3.8-10.6) k/uL Neutrophils # (1.3-7.7) k/uL Lymphocytes # (1.0-4.8) k/uL ESR (0-20) mm/hr ABG pH (7.35-7.45) ABG pCO2 (35-45) mmHg ABG pO2 (83-108) mmHg ABG HCO3 (21-25) mmol/L ABG Total CO2 (19-24) mmol/L ABG O2 Saturation (94-97) % Carbon Dioxide (22-30) mmol/L BUN (7-17) mg/dL Glucose (74-99) mg/dL POC Glucose (mg/dL) 172 H 231 H 221 H (75-99) mg/dL Plasma Lactic Acid Abdoul (0.7-2.0) mmol/L Magnesium (1.6-2.3) mg/dL AST (14-36) U/L ALT (9-52) U/L Alkaline Phosphatase (38-126) U/L Troponin I (0.000-0.034) ng/mL C-Reactive Protein (<10.0) mg/L Total Protein (6.3-8.2) g/dL Albumin (3.5-5.0) g/dL 07/23/17 07/23/17 Range/Units 09:18 10:04 WBC (3.8-10.6) k/uL Neutrophils # (1.3-7.7) k/uL Lymphocytes # (1.0-4.8) k/uL ESR (0-20) mm/hr ABG pH (7.35-7.45) ABG pCO2 (35-45) mmHg ABG pO2 (83-108) mmHg ABG HCO3 (21-25) mmol/L ABG Total CO2 (19-24) mmol/L ABG O2 Saturation (94-97) % Carbon Dioxide (22-30) mmol/L BUN (7-17) mg/dL Glucose (74-99) mg/dL POC Glucose (mg/dL) 175 H 136 H (75-99) mg/dL Plasma Lactic Acid Abdoul (0.7-2.0) mmol/L Magnesium (1.6-2.3) mg/dL AST (14-36) U/L ALT (9-52) U/L Alkaline Phosphatase (38-126) U/L Troponin I (0.000-0.034) ng/mL C-Reactive Protein (<10.0) mg/L Total Protein (6.3-8.2) g/dL Albumin (3.5-5.0) g/dL Assessment and Plan Assessment: This is a pleasant 61-year-old female patient with no prior cardiac history but history of obesity, diabetes, hypertension, dyslipidemia was brought to the emergency room with an acute respiratory distress and what it seems to be flash pulmonary edema. She has abnormal EKG indicating prior anterior myocardial infarction. The bedside echocardiogram revealed severe left ventricular systolic dysfunction. At this point, I would continue the Lasix drip. Maximize medical treatment with aspirin, beta harley, AP inhibitor, and statin. I recommended proceeding with heart catheterization in the next few days to rule out any severe underlying CAD.
[2017-07-23 11:33] LABS: Glucose,Whole Blood 158 mg/dL (75-99)
[2017-07-23 11:53] LABS: Glucose,Whole Blood 190 mg/dL (75-99)
[2017-07-23] MEDS ORDERED: LEVOFLOXACIN 750MG-D5W PMX 750 MG in DEXTROSE/WATER 1 150ML.BAG IVPB SCH (12:00)
[2017-07-23 13:05] LABS: Glucose,Whole Blood 212 mg/dL (75-99)
[2017-07-23 14:02] LABS: Glucose,Whole Blood 178 mg/dL (75-99)
--- NOTE | 2017-07-23 14:05 | P.PN ---
Subjective Progress Note Date: 07/23/17 61-year-old female who presented to the emergency room on 07/22/2017 with a chief complaint of difficulty in breathing. The patient states she was getting ready for work this morning and was so short of breath she was unable to get ready this morning. The patient denied any other symptoms, but stated she was unable to breathe. The patient lives alone, so she called her friend to bring her to the emergency room for evaluation. Upon evaluation in the emergency room, she was noted to be tachycardic with a rate in the 130s. Her oxygen saturations were in the low 80s. She was placed on a BiPAP at 100% FiO2. A x-ray of the chest was completed which shows diffuse airspace disease. Her d-dimer was elevated upon admission at 1.44. A CT of the chest was completed which was negative for pulmonary embolism. An EKG was completed which shows sinus tachycardia with a rate in the 130s. It did show Q waves in leads V1 through V6. In the emergency room the patient received a dose of IV Lasix and also IV steroids. Her lactic acid on admission was 2.9. First troponin was negative. BNP was 561. White count was 9.8, hemoglobin 13.9, sodium 142, potassium 4.5. The patient has a history of diabetes mellitus, GERD, hypertension, osteoarthritis, hyperlipidemia, anxiety, and depression. She is a former smoker. The patient was admitted to the intensive care unit for close observation and monitoring under the care of Dr. Izaguirre. Consultations were placed to pulmonary, Dr. Antoine. The patient was seen and examined at the bedside by Dr. Izaguirre. She is currently wearing a BiPAP 100% FiO2. Recent ABGs show a pH of 7.33, CO2 of 60, pO2 of 72, and bicarb of 31. She states her breathing feels slightly improved since this morning. Her blood pressure is stable at the last reading of 137/ 72. She does remain slightly tachycardic with a rate between 100-110. Blood cultures were drawn and are pending. The patient states she has a cat at home and the patient has numerous scratches to her bilateral lower extremities. The patient was placed on a Lasix drip and insulin drip per pulmonary. An indwelling urinary catheter has been inserted. The patient has been placed on Zosyn and Levaquin. An echocardiogram was ordered and results are currently pending. 07/23/2017: Is now off BiPAP and on nasal cannula oxygen. Her chest x-ray looks markedly improved. He is tolerating a regular diet at this time. She remains with a Pizano catheter and on insulin drip for her diabetes. cardiology feel she had flash pulmonary edema possibly from a recent myocardial infarction. Objective - Vital Signs Vital signs: Vital Signs Temp 98.4 F 07/23/17 12:00 Pulse 84 07/23/17 13:30 Resp 25 H 07/23/17 13:30 BP 113/44 07/23/17 13:30 Pulse Ox 94 L 07/23/17 13:30 Intake & Output 07/22/17 07/23/17 07/23/17 18:59 06:59 18:59 Intake Total 135.992 461.914 149.458 Output Total 2485 1305 910 Balance -2349.008 -843.086 -760.542 Weight 117.9 kg 112.7 kg Intake: IV 120 130 120 Normal Saline 120 130 120 Intake, IV Titration 15.992 271.914 29.458 Amount Insulin Regular 100 unit 15.992 21.914 29.458 In Sodium Chloride 0.9% 100 ml @ Per Protocol IV .Q0M ANDREW Rx#:[id number] Magnesium Sulfate-D5w Pmx 200 1 gm In Dextrose/Water 1 100ml.bag @ 100 mls/hr IVPB Q1H ANDREW Rx#: [id number] Piperacillin-Tazobactam 3 50 .375 gm In Dextrose/Water 1 50ml.bag @ 12.5 mls/hr IVPB Q8HR ANDREW Rx#: [id number] Oral 60 Output: Urine 2485 1305 910 Uretheral (Pizano) 200 Other: Voiding Method Indwelling Catheter Indwelling Catheter Indwelling Catheter - Exam General: obese, The patient is awake and alert, in minimal distress, and does not appear acutely ill. sHe is sitting upright in her bed in the intensive care unit Neck: The neck is supple, there is no thyromegaly, lymphadenopathy, tenderness or JVD. Cardiovascular: S1S2 is normal, There is a regular rate and rhythm. No murmur, rub or gallop is appreciated. Respiratory: Lungs have bibasilar crackles that are improved from 1 day ago, with better air exchange, respirations are non-labored, breath sounds are equal. Gastrointestinal: Soft, distended, non-tender abdomen without masses or organomegaly noted. There is no rebound or guarding present. Bowel sounds are unremarkable. Musculoskeletal: Normal ROM, no tenderness, There is +1 pedal edema. There is no calf tenderness or swelling. No cords were appreciated. Neurological: CN II-XII intact, there are no obvious motor or sensory deficits. Coordination appears grossly intact. Speech is normal. Skin: Skin is warm and dry and no rashes or lesions are noted. - Labs CBC & Chem 7: 07/23/17 03:18 07/23/17 03:18 Labs: Abnormal Lab Results - Last 24 Hours (Table) 07/22/17 07/22/17 07/22/17 Range/Units 09:21 15:17 15:20 WBC (3.8-10.6) k/uL Neutrophils # (1.3-7.7) k/uL Lymphocytes # (1.0-4.8) k/uL ESR 26 H (0-20) mm/hr Carbon Dioxide (22-30) mmol/L BUN (7-17) mg/dL Glucose (74-99) mg/dL POC Glucose (mg/dL) 295 H (75-99) mg/dL Magnesium (1.6-2.3) mg/dL AST (14-36) U/L ALT (9-52) U/L Alkaline Phosphatase (38-126) U/L Troponin I (0.000-0.034) ng/mL C-Reactive Protein 10.6 H (<10.0) mg/L Total Protein (6.3-8.2) g/dL Albumin (3.5-5.0) g/dL 07/22/17 07/22/17 07/22/17 Range/Units 15:20 16:22 16:59 WBC (3.8-10.6) k/uL Neutrophils # (1.3-7.7) k/uL Lymphocytes # (1.0-4.8) k/uL ESR (0-20) mm/hr Carbon Dioxide (22-30) mmol/L BUN (7-17) mg/dL Glucose (74-99) mg/dL POC Glucose (mg/dL) 194 H 125 H (75-99) mg/dL Magnesium (1.6-2.3) mg/dL AST (14-36) U/L ALT (9-52) U/L Alkaline Phosphatase (38-126) U/L Troponin I 0.172 H* (0.000-0.034) ng/mL C-Reactive Protein (<10.0) mg/L Total Protein (6.3-8.2) g/dL Albumin (3.5-5.0) g/dL 07/22/17 07/22/17 07/22/17 Range/Units 19:00 20:02 21:10 WBC (3.8-10.6) k/uL Neutrophils # (1.3-7.7) k/uL Lymphocytes # (1.0-4.8) k/uL ESR (0-20) mm/hr Carbon Dioxide (22-30) mmol/L BUN (7-17) mg/dL Glucose (74-99) mg/dL POC Glucose (mg/dL) 117 H 165 H 174 H (75-99) mg/dL Magnesium (1.6-2.3) mg/dL AST (14-36) U/L ALT (9-52) U/L Alkaline Phosphatase (38-126) U/L Troponin I (0.000-0.034) ng/mL C-Reactive Protein (<10.0) mg/L Total Protein (6.3-8.2) g/dL Albumin (3.5-5.0) g/dL 07/22/17 07/22/17 07/22/17 Range/Units 21:28 22:01 23:18 WBC (3.8-10.6) k/uL Neutrophils # (1.3-7.7) k/uL Lymphocytes # (1.0-4.8) k/uL ESR (0-20) mm/hr Carbon Dioxide (22-30) mmol/L BUN (7-17) mg/dL Glucose (74-99) mg/dL POC Glucose (mg/dL) 181 H 179 H (75-99) mg/dL Magnesium (1.6-2.3) mg/dL AST (14-36) U/L ALT (9-52) U/L Alkaline Phosphatase (38-126) U/L Troponin I 0.477 H* (0.000-0.034) ng/mL C-Reactive Protein (<10.0) mg/L Total Protein (6.3-8.2) g/dL Albumin (3.5-5.0) g/dL 07/23/17 07/23/17 07/23/17 Range/Units 00:19 01:02 02:11 WBC (3.8-10.6) k/uL Neutrophils # (1.3-7.7) k/uL Lymphocytes # (1.0-4.8) k/uL ESR (0-20) mm/hr Carbon Dioxide (22-30) mmol/L BUN (7-17) mg/dL Glucose (74-99) mg/dL POC Glucose (mg/dL) 138 H 142 H 227 H (75-99) mg/dL Magnesium (1.6-2.3) mg/dL AST (14-36) U/L ALT (9-52) U/L Alkaline Phosphatase (38-126) U/L Troponin I (0.000-0.034) ng/mL C-Reactive Protein (<10.0) mg/L Total Protein (6.3-8.2) g/dL Albumin (3.5-5.0) g/dL 07/23/17 07/23/17 07/23/17 Range/Units 03:05 03:18 03:18 WBC 18.4 H (3.8-10.6) k/uL Neutrophils # 17.5 H (1.3-7.7) k/uL Lymphocytes # 0.5 L (1.0-4.8) k/uL ESR (0-20) mm/hr Carbon Dioxide 31 H (22-30) mmol/L BUN 29 H (7-17) mg/dL Glucose 203 H (74-99) mg/dL POC Glucose (mg/dL) 200 H (75-99) mg/dL Magnesium 1.5 L (1.6-2.3) mg/dL AST 64 H (14-36) U/L ALT 87 H (9-52) U/L Alkaline Phosphatase 130 H (38-126) U/L Troponin I (0.000-0.034) ng/mL C-Reactive Protein (<10.0) mg/L Total Protein 6.1 L (6.3-8.2) g/dL Albumin 3.2 L (3.5-5.0) g/dL 07/23/17 07/23/17 07/23/17 Range/Units 03:18 03:59 04:59 WBC (3.8-10.6) k/uL Neutrophils # (1.3-7.7) k/uL Lymphocytes # (1.0-4.8) k/uL ESR (0-20) mm/hr Carbon Dioxide (22-30) mmol/L BUN (7-17) mg/dL Glucose (74-99) mg/dL POC Glucose (mg/dL) 187 H 152 H (75-99) mg/dL Magnesium (1.6-2.3) mg/dL AST (14-36) U/L ALT (9-52) U/L Alkaline Phosphatase (38-126) U/L Troponin I 0.617 H* (0.000-0.034) ng/mL C-Reactive Protein (<10.0) mg/L Total Protein (6.3-8.2) g/dL Albumin (3.5-5.0) g/dL 07/23/17 07/23/17 07/23/17 Range/Units 06:00 07:20 08:19 WBC (3.8-10.6) k/uL Neutrophils # (1.3-7.7) k/uL Lymphocytes # (1.0-4.8) k/uL ESR (0-20) mm/hr Carbon Dioxide (22-30) mmol/L BUN (7-17) mg/dL Glucose (74-99) mg/dL POC Glucose (mg/dL) 172 H 231 H 221 H (75-99) mg/dL Magnesium (1.6-2.3) mg/dL AST (14-36) U/L ALT (9-52) U/L Alkaline Phosphatase (38-126) U/L Troponin I (0.000-0.034) ng/mL C-Reactive Protein (<10.0) mg/L Total Protein (6.3-8.2) g/dL Albumin (3.5-5.0) g/dL 07/23/17 07/23/17 07/23/17 Range/Units 09:18 10:04 11:31 WBC (3.8-10.6) k/uL Neutrophils # (1.3-7.7) k/uL Lymphocytes # (1.0-4.8) k/uL ESR (0-20) mm/hr Carbon Dioxide (22-30) mmol/L BUN (7-17) mg/dL Glucose (74-99) mg/dL POC Glucose (mg/dL) 175 H 136 H 158 H (75-99) mg/dL Magnesium (1.6-2.3) mg/dL AST (14-36) U/L ALT (9-52) U/L Alkaline Phosphatase (38-126) U/L Troponin I (0.000-0.034) ng/mL C-Reactive Protein (<10.0) mg/L Total Protein (6.3-8.2) g/dL Albumin (3.5-5.0) g/dL 07/23/17 07/23/17 Range/Units 11:52 13:04 WBC (3.8-10.6) k/uL Neutrophils # (1.3-7.7) k/uL Lymphocytes # (1.0-4.8) k/uL ESR (0-20) mm/hr Carbon Dioxide (22-30) mmol/L BUN (7-17) mg/dL Glucose (74-99) mg/dL POC Glucose (mg/dL) 190 H 212 H (75-99) mg/dL Magnesium (1.6-2.3) mg/dL AST (14-36) U/L ALT (9-52) U/L Alkaline Phosphatase (38-126) U/L Troponin I (0.000-0.034) ng/mL C-Reactive Protein (<10.0) mg/L Total Protein (6.3-8.2) g/dL Albumin (3.5-5.0) g/dL Microbiology - Last 24 Hours (Table) 07/22/17 09:21 Blood Culture - Preliminary Blood No Growth after 24 hours Assessment and Plan Plan: Acute pulmonary edema: Resolving, patient remains on Lasix drip when she's an ejection fraction of 30-35%, cardiology is planning on catheterization in the next several days. Suspect recent silent myocardial infarction: We'll await cardiology's further workup. Patient's artery been started by them on lisinopril, aspirin, atorvastatin Acute respiratory failure due to above: She remains on Solu-Medrol and Levaquin at this time. Insulin dependent diabetes mellitus: I'll discontinue her insulin drip, start Lantus [address] her on a Humalog scale appropriate for her weight and steroid use Morbid Obesity: The plan on diet modification and/or medications to help with her weight and outpatient basis. Monitor her diet at this time GI prophylaxis: Patient remains on Protonix. DVT prophylaxis: Patient is currently on a heparin drip She will remain in intensive care unit for next 24 hours, I'll await further recommendations from pulmonology and cardiology, I'll reevaluate her in the next 24 hours. Continue her Pizano catheter to gravity at this time.
--- NOTE | 2017-07-23 14:07 | P.PN ---
Subjective Progress Note Date: 07/23/17 This is a morbidly obese 61-year-old female patient who lives independently at home. The patient has no immediate family members. Her parents of complications of diabetes mellitus and heart disease. She also has no siblings. There is a friend that came with this patient here to the emergency department. Apparently over the past few days the patient was progressively getting more short of breath. This morning she became significantly dyspneic. She reported that she was unable to breathe and perform activities of daily today life. For that reason she called EMS and she was brought into the hospital. She had limited cough. No significant sputum production. No fever chills or night sweats. No hemoptysis. No pleurisy. No angina. No chest pain. No palpitations. No calf tenderness. There is chronic lower extremity edema which has gotten slightly worse over the past few days. She is diabetic. EKG on arrival showed Q waves throughout the leads extending from V1 through V6 and the patient has poor R-wave progression. The chest x-ray showed diffuse bilateral pulmonary infiltrates and following that the patient a CAT scan of the chest which showed patchy diffuse groundglass opacification of the lungs bilaterally. There is also some more consolidation of the lung bases. Minimal mediastinal lymphadenopathy. No evidence of pulmonary embolism. No evidence of any pleural or pericardial effusion. The heart is mildly enlarged. The first set of cardiac enzyme was negative. The proBNP level is at 561. The rest of the blood work and advised are all within normal limits. The patient was placed on a BiPAP at a pressure of 12/6 cm of water with an FiO2 of 100%. The patient was also given a dose of Lasix 40 mg IV push. I this patient emergency department. The patient was tolerating the BiPAP and his saturation was above 90%. Nevertheless she was still short of breath even while in the BiPAP. She was unable to speak in full sentences. She was a bit uncomfortable and diaphoretic. She was alert and conscious and she was able to respond to questions appropriately. She denies having any previous pneumonias. No history of smoking. Most of asthma. Most of emphysema. No exposure to any organic or inorganic material. She has a cat at home. No other significant exposures or travel history. No sick contacts. No hemoptysis. No 70 connected tissue disease or vasculitis or lupus. A stat echocardiogram was done at the bedside and the patient was found to have a. LV function with significant anteroseptal and apical akinesis. The contractility was essentially in the mid ventricle and there was some ballooning of the LV and no significant valvular disruption was noted. Ejection fraction was estimated to be around 25-30%. The patient will be taken to the intensive care unit. I briefly discussed with her the possibility of being intubated and placed on a mechanical ventilator. She was a bit hesitant to this idea knowing that she has no other family members at least for now to make decisions for her if she is completely out under the effect of sedatives. A Pizano catheter will be inserted. On examination the patient is bronchus spastic and wheezy and she is crackling in the mid and lower lung hanna bilaterally. On 07/23/2017 the patient is being seen in follow-up. The patient is doing much better compared to yesterday. The patient with diuresis with IV Lasix at 5 mg an hour. Overall cardiac and pulmonary status improved considerably. The pulmonary edema is improving and the chest x-ray looks much better compared to yesterday. The patient was taken off the BiPAP and currently she is on oxygen 3 L/m nasal cannula and she is negative fluid balance approximately 3-4 L over the past 12 hours. The patient is maintaining her electrolytes with some borderline hypokalemia with a potassium level of 3.5. Urinalysis 29 and creatinine is at 1.0. Troponin peaked at 0.6. Influenza screen was negative. Blood cultures been negative. The patient will be taken off the Zosyn and be kept on Levaquin. Meanwhile, she was also seen by cardiology. The patient is on heparin drip. The patient on IV Solu-Medrol. Objective - Vital Signs Vital signs: Vital Signs Temp 98.4 F 07/23/17 12:00 Pulse 84 07/23/17 13:30 Resp 25 H 07/23/17 13:30 BP 113/44 07/23/17 13:30 Pulse Ox 94 L 07/23/17 13:30 Intake & Output 07/22/17 07/23/17 07/23/17 18:59 06:59 18:59 Intake Total 135.992 461.914 149.458 Output Total 2485 1305 910 Balance -2349.008 -843.086 -760.542 Weight 117.9 kg 112.7 kg Intake: IV 120 130 120 Normal Saline 120 130 120 Intake, IV Titration 15.992 271.914 29.458 Amount Insulin Regular 100 unit 15.992 21.914 29.458 In Sodium Chloride 0.9% 100 ml @ Per Protocol IV .Q0M ANDREW Rx#:[id number] Magnesium Sulfate-D5w Pmx 200 1 gm In Dextrose/Water 1 100ml.bag @ 100 mls/hr IVPB Q1H ANDREW Rx#: [id number] Piperacillin-Tazobactam 3 50 .375 gm In Dextrose/Water 1 50ml.bag @ 12.5 mls/hr IVPB Q8HR ANDREW Rx#: [id number] Oral 60 Output: Urine 2485 1305 910 Uretheral (Pizano) 200 Other: Voiding Method Indwelling Catheter Indwelling Catheter Indwelling Catheter - Exam In appearance the patient is much more comfortable compared to yesterday. The patient is less short of breath. She is able to hold a conversation speak in full sentences without any major difficulties. No agitation. No altered mentation.Head exam was generally normal. There was no scleral icterus or corneal arcus. Mucous membranes were moist.Neck was supple and without jugular venous distension, thyromegaly, or carotid bruits. Carotids were easily palpable bilaterally. There was no adenopathy. Lung sounds are showing diminished breath sounds although there is marked improvement in aeration at air entry bilaterally. Few crackles on the basis of still appreciated.Cardiac exam revealed the PMI to be normally situated and sized. The rhythm was regular and no extrasystoles were noted during several minutes of auscultation. The first and second heart sounds were normal and physiologic splitting of the second heart sound was noted. There were no murmurs, rubs, clicks, or gallops.Abdominal exam revealed normal bowel sounds. The abdomen was soft, non- tender, and without masses, organomegaly, or appreciable enlargement of the abdominal aorta. Extremities revealed improvement in the edema lower extremities bilaterally. There is no cyanosis or clubbing. Neurologic exam is within normal and the patient is awake and alert and is no focal neurological deficit. Psychiatric exam is appropriate and the patient has no anxiety or agitation.Examination of the skin revealed no evidence of significant rashes, suspicious appearing nevi or other concerning lesions. - Labs CBC & Chem 7: 07/23/17 03:18 07/23/17 03:18 Labs: Abnormal Lab Results - Last 24 Hours (Table) 07/22/17 07/22/17 07/22/17 Range/Units 09:21 15:17 15:20 WBC (3.8-10.6) k/uL Neutrophils # (1.3-7.7) k/uL Lymphocytes # (1.0-4.8) k/uL ESR 26 H (0-20) mm/hr Carbon Dioxide (22-30) mmol/L BUN (7-17) mg/dL Glucose (74-99) mg/dL POC Glucose (mg/dL) 295 H (75-99) mg/dL Magnesium (1.6-2.3) mg/dL AST (14-36) U/L ALT (9-52) U/L Alkaline Phosphatase (38-126) U/L Troponin I (0.000-0.034) ng/mL C-Reactive Protein 10.6 H (<10.0) mg/L Total Protein (6.3-8.2) g/dL Albumin (3.5-5.0) g/dL 07/22/17 07/22/17 07/22/17 Range/Units 15:20 16:22 16:59 WBC (3.8-10.6) k/uL Neutrophils # (1.3-7.7) k/uL Lymphocytes # (1.0-4.8) k/uL ESR (0-20) mm/hr Carbon Dioxide (22-30) mmol/L BUN (7-17) mg/dL Glucose (74-99) mg/dL POC Glucose (mg/dL) 194 H 125 H (75-99) mg/dL Magnesium (1.6-2.3) mg/dL AST (14-36) U/L ALT (9-52) U/L Alkaline Phosphatase (38-126) U/L Troponin I 0.172 H* (0.000-0.034) ng/mL C-Reactive Protein (<10.0) mg/L Total Protein (6.3-8.2) g/dL Albumin (3.5-5.0) g/dL 07/22/17 07/22/17 07/22/17 Range/Units 19:00 20:02 21:10 WBC (3.8-10.6) k/uL Neutrophils # (1.3-7.7) k/uL Lymphocytes # (1.0-4.8) k/uL ESR (0-20) mm/hr Carbon Dioxide (22-30) mmol/L BUN (7-17) mg/dL Glucose (74-99) mg/dL POC Glucose (mg/dL) 117 H 165 H 174 H (75-99) mg/dL Magnesium (1.6-2.3) mg/dL AST (14-36) U/L ALT (9-52) U/L Alkaline Phosphatase (38-126) U/L Troponin I (0.000-0.034) ng/mL C-Reactive Protein (<10.0) mg/L Total Protein (6.3-8.2) g/dL Albumin (3.5-5.0) g/dL 07/22/17 07/22/17 07/22/17 Range/Units 21:28 22:01 23:18 WBC (3.8-10.6) k/uL Neutrophils # (1.3-7.7) k/uL Lymphocytes # (1.0-4.8) k/uL ESR (0-20) mm/hr Carbon Dioxide (22-30) mmol/L BUN (7-17) mg/dL Glucose (74-99) mg/dL POC Glucose (mg/dL) 181 H 179 H (75-99) mg/dL Magnesium (1.6-2.3) mg/dL AST (14-36) U/L ALT (9-52) U/L Alkaline Phosphatase (38-126) U/L Troponin I 0.477 H* (0.000-0.034) ng/mL C-Reactive Protein (<10.0) mg/L Total Protein (6.3-8.2) g/dL Albumin (3.5-5.0) g/dL 07/23/17 07/23/17 07/23/17 Range/Units 00:19 01:02 02:11 WBC (3.8-10.6) k/uL Neutrophils # (1.3-7.7) k/uL Lymphocytes # (1.0-4.8) k/uL ESR (0-20) mm/hr Carbon Dioxide (22-30) mmol/L BUN (7-17) mg/dL Glucose (74-99) mg/dL POC Glucose (mg/dL) 138 H 142 H 227 H (75-99) mg/dL Magnesium (1.6-2.3) mg/dL AST (14-36) U/L ALT (9-52) U/L Alkaline Phosphatase (38-126) U/L Troponin I (0.000-0.034) ng/mL C-Reactive Protein (<10.0) mg/L Total Protein (6.3-8.2) g/dL Albumin (3.5-5.0) g/dL 07/23/17 07/23/17 07/23/17 Range/Units 03:05 03:18 03:18 WBC 18.4 H (3.8-10.6) k/uL Neutrophils # 17.5 H (1.3-7.7) k/uL Lymphocytes # 0.5 L (1.0-4.8) k/uL ESR (0-20) mm/hr Carbon Dioxide 31 H (22-30) mmol/L BUN 29 H (7-17) mg/dL Glucose 203 H (74-99) mg/dL POC Glucose (mg/dL) 200 H (75-99) mg/dL Magnesium 1.5 L (1.6-2.3) mg/dL AST 64 H (14-36) U/L ALT 87 H (9-52) U/L Alkaline Phosphatase 130 H (38-126) U/L Troponin I (0.000-0.034) ng/mL C-Reactive Protein (<10.0) mg/L Total Protein 6.1 L (6.3-8.2) g/dL Albumin 3.2 L (3.5-5.0) g/dL 07/23/17 07/23/17 07/23/17 Range/Units 03:18 03:59 04:59 WBC (3.8-10.6) k/uL Neutrophils # (1.3-7.7) k/uL Lymphocytes # (1.0-4.8) k/uL ESR (0-20) mm/hr Carbon Dioxide (22-30) mmol/L BUN (7-17) mg/dL Glucose (74-99) mg/dL POC Glucose (mg/dL) 187 H 152 H (75-99) mg/dL Magnesium (1.6-2.3) mg/dL AST (14-36) U/L ALT (9-52) U/L Alkaline Phosphatase (38-126) U/L Troponin I 0.617 H* (0.000-0.034) ng/mL C-Reactive Protein (<10.0) mg/L Total Protein (6.3-8.2) g/dL Albumin (3.5-5.0) g/dL 07/23/17 07/23/17 07/23/17 Range/Units 06:00 07:20 08:19 WBC (3.8-10.6) k/uL Neutrophils # (1.3-7.7) k/uL Lymphocytes # (1.0-4.8) k/uL ESR (0-20) mm/hr Carbon Dioxide (22-30) mmol/L BUN (7-17) mg/dL Glucose (74-99) mg/dL POC Glucose (mg/dL) 172 H 231 H 221 H (75-99) mg/dL Magnesium (1.6-2.3) mg/dL AST (14-36) U/L ALT (9-52) U/L Alkaline Phosphatase (38-126) U/L Troponin I (0.000-0.034) ng/mL C-Reactive Protein (<10.0) mg/L Total Protein (6.3-8.2) g/dL Albumin (3.5-5.0) g/dL 07/23/17 07/23/17 07/23/17 Range/Units 09:18 10:04 11:31 WBC (3.8-10.6) k/uL Neutrophils # (1.3-7.7) k/uL Lymphocytes # (1.0-4.8) k/uL ESR (0-20) mm/hr Carbon Dioxide (22-30) mmol/L BUN (7-17) mg/dL Glucose (74-99) mg/dL POC Glucose (mg/dL) 175 H 136 H 158 H (75-99) mg/dL Magnesium (1.6-2.3) mg/dL AST (14-36) U/L ALT (9-52) U/L Alkaline Phosphatase (38-126) U/L Troponin I (0.000-0.034) ng/mL C-Reactive Protein (<10.0) mg/L Total Protein (6.3-8.2) g/dL Albumin (3.5-5.0) g/dL 07/23/17 07/23/17 Range/Units 11:52 13:04 WBC (3.8-10.6) k/uL Neutrophils # (1.3-7.7) k/uL Lymphocytes # (1.0-4.8) k/uL ESR (0-20) mm/hr Carbon Dioxide (22-30) mmol/L BUN (7-17) mg/dL Glucose (74-99) mg/dL POC Glucose (mg/dL) 190 H 212 H (75-99) mg/dL Magnesium (1.6-2.3) mg/dL AST (14-36) U/L ALT (9-52) U/L Alkaline Phosphatase (38-126) U/L Troponin I (0.000-0.034) ng/mL C-Reactive Protein (<10.0) mg/L Total Protein (6.3-8.2) g/dL Albumin (3.5-5.0) g/dL Microbiology - Last 24 Hours (Table) 07/22/17 09:21 Blood Culture - Preliminary Blood No Growth after 24 hours Assessment and Plan Assessment: Assessment 1 acute hypoxic respiratory failure due to acute pulmonary edema, improving and the patient has been weaned down to 3 L of oxygen nasal cannula. She is still being diuresis with Lasix drip. She is on IV heparin. She has been taken off the BiPAP. 2 acute BiPAP dependent respiratory failure, recovered 3 CHF with impaired LV function, awaiting final report on echocardiogram 4 diffuse Q waves extending V1 through V6 with poor R-wave progression suggestive of previous silent myocardial infarction setting of diabetes mellitus , with possibility of an acute non-ST elevation myocardial infarction with positive troponins, currently on IV heparin. The patient is also on oral aspirin. 5 diabetes mellitus 6 obesity 7 arthritis 8 anxiety/depression Plan She is clinically improving. We'll keep the Lasix to for another 24 hours. This continued IV Zosyn. Continued empiric antibiotic coverage with Levaquin. Put the patient aspirin and IV heparin. May also need to start AP inhibitor and the patient has been started on Zestril 2.5 mg by mouth daily. The patient will ultimately need a cardiac catheterization per Dr. Jackson's opinion.. Meanwhile the patient will be kept in the t ICU for further monitoring.
--- NOTE | 2017-07-23 14:59 | ECHOF ---
Referral Reason:difficulty breathing MEASUREMENTS -------- HEIGHT: 162.6 cm WEIGHT: 102.1 kg BP: RVIDd: 2.4 cm (< 3.3) IVSd: 1.1 cm (0.6 - 1.1) LVIDd: 4.9 cm (3.9 - 5.3) LVPWd: 1.1 cm (0.6 - 1.1) IVSs: 1.4 cm LVIDs: 3.9 cm LVPWs: 1.3 cm FINDINGS -------- Sinus rhythm. This was a technically difficult study with suboptimal views. Limited Study The left ventricular size is normal. There is mild concentric left ventricular hypertrophy. Overa ll left ventricular systolic function is severely impaired with, an EF between 25 - 30 %. Possible Takotsubo. Mid Basal Segments Molly Only. 1.5mg of Definity was utilized for enhancement of images CONCLUSIONS -------- 1. Sinus rhythm. 2. This was a technically difficult study with suboptimal views. 3. Limited Study for evaluation of ejection fraction. 4. The left ventricular size is normal. 5. There is mild concentric left ventricular hypertrophy. 6. Overall left ventricular systolic function is severely impaired with, an EF between 25 - 30 %. 7. Possible Takotsubo. 8. Mid Basal Segments Molly Only. 9. 1.5mg of Definity was utilized for enhancement of images PROFESSOR OF COUNSELING: Garrett Zepeda [facility]
[2017-07-23] MEDS: FUROSEMIDE 250 MG in SODIUM CHLORIDE 0.9% 225 ML IVP SCH (15:15)
[2017-07-23] MEDS: INSULIN GLARGINE 100 UNIT/ML 10 ML VIAL SQ SCH ×2 (15:15→20:14)
[2017-07-23 17:24] LABS: Glucose,Whole Blood 124 mg/dL (75-99)
[2017-07-23] MEDS: SODIUM CHLORIDE 0.9% 1,000 ML IV SCH (17:30)
[2017-07-23] MEDS: HEPARIN SODIUM,PORCINE/D5W PMX 25,000 UNIT in DEXTROSE/WATER 1 500ML.BAG IV SCH (17:34)
[2017-07-23] MEDS ORDERED: HEPARIN SODIUM,PORCINE 5,000 UNIT/ML 1 ML VIAL IV ONE (18:00)
[2017-07-23 18:08] LABS: INR 1.1 (<1.2); Partial Thromboplastin Time 23.5 sec (22.0-30.0); Prothrombin Time 11.1 sec (9.0-12.0)
[2017-07-23 20:14] LABS: Glucose,Whole Blood 306 mg/dL (75-99)
[2017-07-23] MEDS: INSULIN LISPRO (humaLOG) 300 UNIT/3 ML VIAL SQ SCH (20:14)
[2017-07-24] MEDS ORDERED: HEPARIN SODIUM,PORCINE 5,000 UNIT/ML 1 ML VIAL IV PRN
[2017-07-24 04:41] LABS: Basophils % (A) 0 %; CH 29.2; Eosinophils # (A) 0.1 k/uL (0-0.7); Eosinophils % (A) 1 %; HCT 35.4 % (34.0-46.0); HDW 2.26; HGB 10.9 gm/dL (11.4-16.0); Hypochromasia Slight; Luc # (Auto) 0.04; Luc % (Auto) 0; Lymphocytes # (A) 0.5 k/uL (1.0-4.8); Lymphocytes % (A) 3 %; MCH 29.4 pg (25.0-35.0); MCHC 30.9 g/dL (31.0-37.0); MCV 95.1 fL (80.0-100.0); Monocytes # (A) 0.5 k/uL (0-1.0); Monocytes % (A) 3 %; Neutrophils # (A) 14.9 k/uL (1.3-7.7); Neutrophils % (A) 93 %; RBC 3.72 m/uL (3.80-5.40); RDW 14.7 % (11.5-15.5); WBC (Perox) 15.97
[2017-07-24 05:58] LABS: Calcium 9.1 mg/dL (8.4-10.2); Phosphorus 4.7 mg/dL (2.5-4.5); Total Bilirubin 0.4 mg/dL (0.2-1.3); Total Protein 5.7 g/dL (6.3-8.2)
[2017-07-24] MEDS: FUROSEMIDE 250 MG in SODIUM CHLORIDE 0.9% 225 ML IVP SCH (06:07)
[2017-07-24] MEDS: methylPREDNISolone SOD SUCCI 125 MG/2 ML VIAL IV SCH (06:07)
--- NOTE | 2017-07-24 06:49 | XR ---
EXAMINATION TYPE: XR chest 1V DATE OF EXAM: 07/24/2017 HISTORY: respiratory failure. REFERENCE: Previous study dated 07/23/2017. FINDINGS: The heart is mildly enlarged. There is vascular congestion. There is improvement in the radhika earance of the chest with less edema. I suspect small effusions. IMPRESSION: IMPROVING CHANGES OF PULMONARY EDEMA.
[2017-07-24 07:08] LABS: Glucose,Whole Blood 355 mg/dL (75-99)
[2017-07-24] MEDS: INSULIN LISPRO (humaLOG) 300 UNIT/3 ML VIAL SQ SCH ×6 (07:08→21:09)
[2017-07-24] MEDS: METOPROLOL TARTRATE 25 MG TAB PO SCH ×2 (07:48→21:10)
[2017-07-24] MEDS: ASPIRIN 325 MG TAB PO SCH (07:48)
[2017-07-24] MEDS: PANTOPRAZOLE 40 MG/10 ML VIAL IVP SCH (07:48)
[2017-07-24] MEDS: LISINOPRIL 2.5 MG TAB PO SCH (07:48)
[2017-07-24] MEDS: ATORVASTATIN 40 MG TAB PO SCH (07:48)
--- NOTE | 2017-07-24 10:03 | P.PN ---
Subjective Progress Note Date: 07/24/17 This is a morbidly obese 61-year-old female patient who lives independently at home. The patient has no immediate family members. Her parents of complications of diabetes mellitus and heart disease. She also has no siblings. There is a friend that came with this patient here to the emergency department. Apparently over the past few days the patient was progressively getting more short of breath. This morning she became significantly dyspneic. She reported that she was unable to breathe and perform activities of daily today life. For that reason she called EMS and she was brought into the hospital. She had limited cough. No significant sputum production. No fever chills or night sweats. No hemoptysis. No pleurisy. No angina. No chest pain. No palpitations. No calf tenderness. There is chronic lower extremity edema which has gotten slightly worse over the past few days. She is diabetic. EKG on arrival showed Q waves throughout the leads extending from V1 through V6 and the patient has poor R-wave progression. The chest x-ray showed diffuse bilateral pulmonary infiltrates and following that the patient a CAT scan of the chest which showed patchy diffuse groundglass opacification of the lungs bilaterally. There is also some more consolidation of the lung bases. Minimal mediastinal lymphadenopathy. No evidence of pulmonary embolism. No evidence of any pleural or pericardial effusion. The heart is mildly enlarged. The first set of cardiac enzyme was negative. The proBNP level is at 561. The rest of the blood work and advised are all within normal limits. The patient was placed on a BiPAP at a pressure of 12/6 cm of water with an FiO2 of 100%. The patient was also given a dose of Lasix 40 mg IV push. I this patient emergency department. The patient was tolerating the BiPAP and his saturation was above 90%. Nevertheless she was still short of breath even while in the BiPAP. She was unable to speak in full sentences. She was a bit uncomfortable and diaphoretic. She was alert and conscious and she was able to respond to questions appropriately. She denies having any previous pneumonias. No history of smoking. Most of asthma. Most of emphysema. No exposure to any organic or inorganic material. She has a cat at home. No other significant exposures or travel history. No sick contacts. No hemoptysis. No 70 connected tissue disease or vasculitis or lupus. A stat echocardiogram was done at the bedside and the patient was found to have a. LV function with significant anteroseptal and apical akinesis. The contractility was essentially in the mid ventricle and there was some ballooning of the LV and no significant valvular disruption was noted. Ejection fraction was estimated to be around 25-30%. The patient will be taken to the intensive care unit. I briefly discussed with her the possibility of being intubated and placed on a mechanical ventilator. She was a bit hesitant to this idea knowing that she has no other family members at least for now to make decisions for her if she is completely out under the effect of sedatives. A Pizano catheter will be inserted. On examination the patient is bronchus spastic and wheezy and she is crackling in the mid and lower lung hanna bilaterally. On 07/23/2017 the patient is being seen in follow-up. The patient is doing much better compared to yesterday. The patient with diuresis with IV Lasix at 5 mg an hour. Overall cardiac and pulmonary status improved considerably. The pulmonary edema is improving and the chest x-ray looks much better compared to yesterday. The patient was taken off the BiPAP and currently she is on oxygen 3 L/m nasal cannula and she is negative fluid balance approximately 3-4 L over the past 12 hours. The patient is maintaining her electrolytes with some borderline hypokalemia with a potassium level of 3.5. Urinalysis 29 and creatinine is at 1.0. Troponin peaked at 0.6. Influenza screen was negative. Blood cultures been negative. The patient will be taken off the Zosyn and be kept on Levaquin. Meanwhile, she was also seen by cardiology. The patient is on heparin drip. The patient on IV Solu-Medrol. On 07/24/2017 the patient is being seen in follow-up. She is on oxygen 3 L/m nasal cannula. Chest x-ray still showing pulmonary edema although improved. The patient is still on Lasix drip at 5 mg an hour. The patient is a negative fluid balance. The patient was also started on vishnu inhibitors and beta blockers. The patient is on a combination of Zestril 2.5 mg and metoprolol 12.5 mg by mouth twice a day. The patient is producing urine output. She has suffered an acute kidney injury with a creatinine is up to 1.2. She may be having underlying cardiorenal syndrome with poor cardiac output and diuresis also contributed to her acute kidney injury. The patient is still on IV Levaquin. The patient on IV Solu-Medrol. Blood sugars are elevated and this is essentially steroid-induced hyperglycemia. On examination she has no active bronchospasm wheezing and I think is very reasonable to discontinue the IV Solu Medrol for today. This will also help with a blood sugar control. The patient is currently off BiPAP. She on 3 L/m nasal cannula. No fever. No chills. No sputum production. No altered mentation. No chest pain. She remains on IV heparin and cardiology is on the case. Echocardiac Toan was done and showed ejection fraction of 25%. The patient had poor windows and valves cannot be accurately assessed. There was a concern for Takasubo syndrome. Objective - Vital Signs Vital signs: Vital Signs Temp 98 F 07/24/17 08:00 Pulse 87 07/24/17 08:00 Resp 27 H 07/24/17 08:00 BP 131/51 07/24/17 08:00 Pulse Ox 94 L 07/24/17 08:00 Intake & Output 07/23/17 07/24/17 07/24/17 19:59 06:59 18:59 Intake Total 10 Output Total 185 Balance -175 Weight Intake: IV 10 Normal Saline 10 Intake, IV Titration Amount Furosemide 250 mg In Sodium Chloride 0.9% 225 ml @ 5 MG/HR 5 mls/hr IVP .Q24H ANDREW Rx#:[id number] Heparin Sodium,Porcine/ D5w Pmx 25,000 unit In Dextrose/Water 1 500ml. bag @ 8.874 UNITS/KG/HR 20 mls/hr IV .Q24H ANDREW Rx #:[id number] Insulin Regular 100 unit In Sodium Chloride 0.9% 100 ml @ Per Protocol IV .Q0M ANDREW Rx#:[id number] Output: Urine 185 Other: Voiding Method Indwelling Catheter - Exam In appearance the patient is much more comfortable compared to yesterday. The patient is less short of breath. She is able to hold a conversation speak in full sentences without any major difficulties. No agitation. No altered mentation.Head exam was generally normal. There was no scleral icterus or corneal arcus. Mucous membranes were moist.Neck was supple and without jugular venous distension, thyromegaly, or carotid bruits. Carotids were easily palpable bilaterally. There was no adenopathy. Lung sounds are showing diminished breath sounds although there is marked improvement in aeration at air entry bilaterally. Few crackles on the basis of still appreciated.Cardiac exam revealed the PMI to be normally situated and sized. The rhythm was regular and no extrasystoles were noted during several minutes of auscultation. The first and second heart sounds were normal and physiologic splitting of the second heart sound was noted. There were no murmurs, rubs, clicks, or gallops.Abdominal exam revealed normal bowel sounds. The abdomen was soft, non- tender, and without masses, organomegaly, or appreciable enlargement of the abdominal aorta. Extremities revealed improvement in the edema lower extremities bilaterally. There is no cyanosis or clubbing. Neurologic exam is within normal and the patient is awake and alert and is no focal neurological deficit. Psychiatric exam is appropriate and the patient has no anxiety or agitation.Examination of the skin revealed no evidence of significant rashes, suspicious appearing nevi or other concerning lesions. - Labs CBC & Chem 7: 07/24/17 04:20 07/24/17 04:20 Labs: Abnormal Lab Results - Last 24 Hours (Table) 07/22/17 07/23/17 07/23/17 Range/Units 09:21 11:31 11:52 WBC (3.8-10.6) k/uL RBC (3.80-5.40) m/uL Hgb (11.4-16.0) gm/dL MCHC (31.0-37.0) g/dL Neutrophils # (1.3-7.7) k/uL Lymphocytes # (1.0-4.8) k/uL APTT (22.0-30.0) sec Carbon Dioxide (22-30) mmol/L BUN (7-17) mg/dL Creatinine (0.52-1.04) mg/dL Glucose (74-99) mg/dL POC Glucose (mg/dL) 158 H 190 H (75-99) mg/dL Hemoglobin A1c 6.4 H (4.0-6.0) % Phosphorus (2.5-4.5) mg/dL AST (14-36) U/L ALT (9-52) U/L Total Protein (6.3-8.2) g/dL Albumin (3.5-5.0) g/dL 07/23/17 07/23/17 07/23/17 Range/Units 13:04 13:59 17:22 WBC (3.8-10.6) k/uL RBC (3.80-5.40) m/uL Hgb (11.4-16.0) gm/dL MCHC (31.0-37.0) g/dL Neutrophils # (1.3-7.7) k/uL Lymphocytes # (1.0-4.8) k/uL APTT (22.0-30.0) sec Carbon Dioxide (22-30) mmol/L BUN (7-17) mg/dL Creatinine (0.52-1.04) mg/dL Glucose (74-99) mg/dL POC Glucose (mg/dL) 212 H 178 H 124 H (75-99) mg/dL Hemoglobin A1c (4.0-6.0) % Phosphorus (2.5-4.5) mg/dL AST (14-36) U/L ALT (9-52) U/L Total Protein (6.3-8.2) g/dL Albumin (3.5-5.0) g/dL 07/23/17 07/23/17 07/24/17 Range/Units 20:13 23:30 04:20 WBC 16.0 H (3.8-10.6) k/uL RBC 3.72 L (3.80-5.40) m/uL Hgb 10.9 L (11.4-16.0) gm/dL MCHC 30.9 L (31.0-37.0) g/dL Neutrophils # 14.9 H (1.3-7.7) k/uL Lymphocytes # 0.5 L (1.0-4.8) k/uL APTT 44.7 H (22.0-30.0) sec Carbon Dioxide (22-30) mmol/L BUN (7-17) mg/dL Creatinine (0.52-1.04) mg/dL Glucose (74-99) mg/dL POC Glucose (mg/dL) 306 H (75-99) mg/dL Hemoglobin A1c (4.0-6.0) % Phosphorus (2.5-4.5) mg/dL AST (14-36) U/L ALT (9-52) U/L Total Protein (6.3-8.2) g/dL Albumin (3.5-5.0) g/dL 07/24/17 07/24/17 07/24/17 Range/Units 04:20 04:20 07:06 WBC (3.8-10.6) k/uL RBC (3.80-5.40) m/uL Hgb (11.4-16.0) gm/dL MCHC (31.0-37.0) g/dL Neutrophils # (1.3-7.7) k/uL Lymphocytes # (1.0-4.8) k/uL APTT 47.7 H (22.0-30.0) sec Carbon Dioxide 33 H (22-30) mmol/L BUN 49 H (7-17) mg/dL Creatinine 1.24 H (0.52-1.04) mg/dL Glucose 339 H (74-99) mg/dL POC Glucose (mg/dL) 355 H (75-99) mg/dL Hemoglobin A1c (4.0-6.0) % Phosphorus 4.7 H (2.5-4.5) mg/dL AST 40 H (14-36) U/L ALT 70 H (9-52) U/L Total Protein 5.7 L (6.3-8.2) g/dL Albumin 2.9 L (3.5-5.0) g/dL Microbiology - Last 24 Hours (Table) 07/22/17 09:21 Blood Culture - Preliminary Blood No Growth after 24 hours Assessment and Plan Assessment: Assessment 1 acute hypoxic respiratory failure due to acute pulmonary edema, improving and the patient has been weaned down to 3 L of oxygen nasal cannula. She is still being diuresis with Lasix drip. She is on IV heparin. She has been taken off the BiPAP. On 07/24/2017, the patient's acute hypoxic respiratory failure was thought to be related to a cardiogenic pulmonary edema. Ejection fraction was around 25% and the patient has segmental wall motion abnormalities and the entire anterior LV wall is not arlen appropriately. There is also some aneurysmal ballooning. The echocardiogram was of a poor window and valves were not accurately assessed. Patient remains in acute pulmonary edema despite some interval improvement yet the patient is less short of breath. The patient is on previous of oxygen nasal cannula. She is currently on a combination of Zestril, metoprolol, and Lasix drip. She is also on IV heparin suspecting an acute non-ST segment elevation myocardial infarction. 2 acute BiPAP dependent respiratory failure, recovered, and the patient is currently on oxygen at 3 L/m nasal cannula 3 CHF with impaired LV function, awaiting final report on echocardiogram 4 diffuse Q waves extending V1 through V6 with poor R-wave progression suggestive of previous silent myocardial infarction setting of diabetes mellitus , with possibility of an acute non-ST elevation myocardial infarction with positive troponins, currently on IV heparin. The patient is also on oral aspirin. 5 diabetes mellitus, with a component of steroid-induced hyperglycemia. 6 obesity 7 acute kidney injury with a creatinine started a baseline of 0.68 and is currently up to 1.24. This is probably cardiorenal effect knowing that the patient is poor LV function. She is also on a combination of diuretics and vishnu inhibitors. We'll monitor the renal function. Ultrasound the kidneys will be needed. 8 anxiety/depression Plan She is clinically improving. The patient has not fully recovered. She remains in pulmonary edema. She remains in heart failure. Continue Lasix to follow 24 hours. Continue metoprolol and Zestril. IV heparin can be discontinued if cardiology is agreeable. This continued IV Solu Medrol as the patient has developed a steroid use hyperglycemia and there is no need for any prednisone burst taper. Change the Levaquin to oral. There is an empiric antibiotic coverage should there be any underlying pneumonia. Monitor the blood sugar. Sit up on a chair. Cardiology follow-up. We'll continue to follow.
[2017-07-24 12:12] LABS: Glucose,Whole Blood 402 mg/dL (75-99)
[2017-07-24] MEDS: LEVOFLOXACIN 500 MG TAB PO SCH (12:24)
--- NOTE | 2017-07-24 12:32 | P.PN ---
Subjective 61-year-old female who presented to the emergency room on 07/22/2017 with a chief complaint of difficulty in breathing. The patient states she was getting ready for work this morning and was so short of breath she was unable to get ready this morning. The patient denied any other symptoms, but stated she was unable to breathe. The patient lives alone, so she called her friend to bring her to the emergency room for evaluation. Upon evaluation in the emergency room, she was noted to be tachycardic with a rate in the 130s. Her oxygen saturations were in the low 80s. She was placed on a BiPAP at 100% FiO2. A x-ray of the chest was completed which shows diffuse airspace disease. Her d-dimer was elevated upon admission at 1.44. A CT of the chest was completed which was negative for pulmonary embolism. An EKG was completed which shows sinus tachycardia with a rate in the 130s. It did show Q waves in leads V1 through V6. In the emergency room the patient received a dose of IV Lasix and also IV steroids. Her lactic acid on admission was 2.9. First troponin was negative. BNP was 561. White count was 9.8, hemoglobin 13.9, sodium 142, potassium 4.5. The patient has a history of diabetes mellitus, GERD, hypertension, osteoarthritis, hyperlipidemia, anxiety, and depression. She is a former smoker. The patient was admitted to the intensive care unit for close observation and monitoring under the care of Dr. Izaguirre. Consultations were placed to pulmonary, Dr. Antoine. The patient was seen and examined at the bedside by Dr. Izaguirre. She is currently wearing a BiPAP 100% FiO2. Recent ABGs show a pH of 7.33, CO2 of 60, pO2 of 72, and bicarb of 31. She states her breathing feels slightly improved since this morning. Her blood pressure is stable at the last reading of 137/ 72. She does remain slightly tachycardic with a rate between 100-110. Blood cultures were drawn and are pending. The patient states she has a cat at home and the patient has numerous scratches to her bilateral lower extremities. The patient was placed on a Lasix drip and insulin drip per pulmonary. An indwelling urinary catheter has been inserted. The patient has been placed on Zosyn and Levaquin. An echocardiogram was ordered and results are currently pending. 07/23/2017: Is now off BiPAP and on nasal cannula oxygen. Her chest x-ray looks markedly improved. He is tolerating a regular diet at this time. She remains with a Pizano catheter and on insulin drip for her diabetes. cardiology feel she had flash pulmonary edema possibly from a recent myocardial infarction. 07/24/2017: Feels a bit better. She is on 3 L of oxygen via nasal cannula. Her chest x-rays improved. She is diuresing nicely with a Lasix drip. Is currently at 5 mg an hour. Cardiology is started lisinopril and metoprolol twice a day. She does have a worsening GFR though, most likely from the diuresis. Pulmonology is going to stop the Solu-Medrol.. Cardiogram showed an ejection fraction of 30%. This was a study and they're concerned about possibly TAKOTSUBO SYNDROME. Off the insulin drip. She is currently on Lantus 20 and scale. Her sugars remain in the 300s. Complains of somewhat decreased appetite. She is also complaining of some heartburn after eating. last BM midnight. Pizano to gravity. Objective - Vital Signs Vital signs: Vital Signs Temp 98.0 F 07/24/17 12:00 Pulse 72 07/24/17 12:00 Resp 22 07/24/17 12:00 BP 147/58 07/24/17 12:00 Pulse Ox 96 07/24/17 12:00 Intake & Output 07/23/17 07/24/17 07/24/17 19:59 06:59 18:59 Intake Total 50 Output Total 435 Balance -385 Weight Intake: IV 50 Normal Saline 50 Intake, IV Titration Amount Furosemide 250 mg In Sodium Chloride 0.9% 225 ml @ 5 MG/HR 5 mls/hr IVP .Q24H ANDREW Rx#:[id number] Heparin Sodium,Porcine/ D5w Pmx 25,000 unit In Dextrose/Water 1 500ml. bag @ 8.874 UNITS/KG/HR 20 mls/hr IV .Q24H ANDREW Rx #:[id number] Insulin Regular 100 unit In Sodium Chloride 0.9% 100 ml @ Per Protocol IV .Q0M ANDREW Rx#:[id number] Output: Urine 435 Other: Voiding Method Indwelling Catheter - Exam General: obese, The patient is awake and alert, in minimal distress, and does not appear acutely ill. sHe is sitting upright in her bed in the intensive care unit Neck: The neck is supple, there is no thyromegaly, lymphadenopathy, tenderness or JVD. Cardiovascular: S1S2 is normal, There is a regular rate and rhythm. No murmur, rub or gallop is appreciated. Respiratory: Lungs have bibasilar crackles that are improved from 1 day ago, with better air exchange, respirations are non-labored, breath sounds are equal. Gastrointestinal: Soft, distended, non-tender abdomen without masses or organomegaly noted. There is no rebound or guarding present. Bowel sounds are unremarkable. Musculoskeletal: Normal ROM, no tenderness, There is +1 pedal edema. There is no calf tenderness or swelling. No cords were appreciated. Neurological: CN II-XII intact, there are no obvious motor or sensory deficits. Coordination appears grossly intact. Speech is normal. Skin: Skin is warm and dry and no rashes or lesions are noted. - Labs CBC & Chem 7: 07/24/17 04:20 07/24/17 04:20 Labs: Abnormal Lab Results - Last 24 Hours (Table) 07/22/17 07/23/17 07/23/17 Range/Units 09:21 13:59 17:22 WBC (3.8-10.6) k/uL RBC (3.80-5.40) m/uL Hgb (11.4-16.0) gm/dL MCHC (31.0-37.0) g/dL Neutrophils # (1.3-7.7) k/uL Lymphocytes # (1.0-4.8) k/uL APTT (22.0-30.0) sec Carbon Dioxide (22-30) mmol/L BUN (7-17) mg/dL Creatinine (0.52-1.04) mg/dL Glucose (74-99) mg/dL POC Glucose (mg/dL) 178 H 124 H (75-99) mg/dL Hemoglobin A1c 6.4 H (4.0-6.0) % Phosphorus (2.5-4.5) mg/dL AST (14-36) U/L ALT (9-52) U/L Total Protein (6.3-8.2) g/dL Albumin (3.5-5.0) g/dL 07/23/17 07/23/17 07/24/17 Range/Units 20:13 23:30 04:20 WBC 16.0 H (3.8-10.6) k/uL RBC 3.72 L (3.80-5.40) m/uL Hgb 10.9 L (11.4-16.0) gm/dL MCHC 30.9 L (31.0-37.0) g/dL Neutrophils # 14.9 H (1.3-7.7) k/uL Lymphocytes # 0.5 L (1.0-4.8) k/uL APTT 44.7 H (22.0-30.0) sec Carbon Dioxide (22-30) mmol/L BUN (7-17) mg/dL Creatinine (0.52-1.04) mg/dL Glucose (74-99) mg/dL POC Glucose (mg/dL) 306 H (75-99) mg/dL Hemoglobin A1c (4.0-6.0) % Phosphorus (2.5-4.5) mg/dL AST (14-36) U/L ALT (9-52) U/L Total Protein (6.3-8.2) g/dL Albumin (3.5-5.0) g/dL 07/24/17 07/24/17 07/24/17 Range/Units 04:20 04:20 07:06 WBC (3.8-10.6) k/uL RBC (3.80-5.40) m/uL Hgb (11.4-16.0) gm/dL MCHC (31.0-37.0) g/dL Neutrophils # (1.3-7.7) k/uL Lymphocytes # (1.0-4.8) k/uL APTT 47.7 H (22.0-30.0) sec Carbon Dioxide 33 H (22-30) mmol/L BUN 49 H (7-17) mg/dL Creatinine 1.24 H (0.52-1.04) mg/dL Glucose 339 H (74-99) mg/dL POC Glucose (mg/dL) 355 H (75-99) mg/dL Hemoglobin A1c (4.0-6.0) % Phosphorus 4.7 H (2.5-4.5) mg/dL AST 40 H (14-36) U/L ALT 70 H (9-52) U/L Total Protein 5.7 L (6.3-8.2) g/dL Albumin 2.9 L (3.5-5.0) g/dL 07/24/17 Range/Units 12:10 WBC (3.8-10.6) k/uL RBC (3.80-5.40) m/uL Hgb (11.4-16.0) gm/dL MCHC (31.0-37.0) g/dL Neutrophils # (1.3-7.7) k/uL Lymphocytes # (1.0-4.8) k/uL APTT (22.0-30.0) sec Carbon Dioxide (22-30) mmol/L BUN (7-17) mg/dL Creatinine (0.52-1.04) mg/dL Glucose (74-99) mg/dL POC Glucose (mg/dL) 402 H (75-99) mg/dL Hemoglobin A1c (4.0-6.0) % Phosphorus (2.5-4.5) mg/dL AST (14-36) U/L ALT (9-52) U/L Total Protein (6.3-8.2) g/dL Albumin (3.5-5.0) g/dL Microbiology - Last 24 Hours (Table) 07/22/17 09:21 Blood Culture - Preliminary Blood No Growth after 48 hours Assessment and Plan Plan: Acute pulmonary edema: Resolving, patient remains on Lasix drip 5mg/hr when she' s an ejection fraction of 25-30%, cardiology is planning on catheterization in the next several days. Possible Taketsubo based on limited Echo Suspect recent silent myocardial infarction: We'll await cardiology's further workup. Patient's remains on lisinopril, aspirin, atorvastatin, metoprolol Acute respiratory failure due to above: Her Solumdrol will be discontinued per pulmonology. Insulin dependent diabetes mellitus with Hyperglycemia: Increase Lantus to 30 units daily, add 5units to HumalogAC +HS Morbid Obesity: The plan on diet modification and/or medications to help with her weight and outpatient basis. Monitor her diet at this time GERD/GI prophylaxis: Patient remains on Protonix. She c/o ongoing symptoms, add pepcid 20mg po bid DVT prophylaxis: Heparin drip may be stopped soon She will remain in intensive care unit for next 24 hours, I'll await further recommendations from pulmonology and cardiology, She will bereevaluated in the next 24 hours. Continue her Pizano catheter to gravity at this time.
[2017-07-24] MEDS: FAMOTIDINE 20 MG TAB PO SCH ×2 (12:45→21:09)
--- NOTE | 2017-07-24 14:20 | P.PN ---
Subjective Principal diagnosis: CHF This is a pleasant 61 year old female patient with a past medical history significant for morbid obesity, diabetes, hypertension, and dyslipidemia without any history of coronary artery disease or congestive heart failure or cardiac arrhythmia who never seen any nurse intern in the past was brought to the emergency room by ambulance with shortness of breath. The patient was in her usual state of health until earlier today when she developed a sudden onset of shortness of breath. She did not have any symptoms of chest pain or chest discomfort. No dizziness or lightheadedness. No syncope. The patient lives by herself. A friend of hers called the ambulance and the patient was brought to the emergency room where she was found to be in acute respiratory distress and she was hypoxic and was placed on BiPAP. The patient underwent a CTA of the chest which showed no evidence of PE. The chest x-ray showed finding consistent with bilateral infiltrate and possible CHF. The EKG showed sinus rhythm with poor R-wave progression and what it seems to be Q-wave across the whole chest leads. The patient seems that she suffered an acute anterolateral septal myocardial infarction in the past. An echocardiogram was performed at bedside and revealed severe lead impaired LV function with an ejection fraction around 30-35% with mid ventricle and apical hypokinesia and only portions of the LV arlen are the basal LV only. The first set of cardiac enzymes came in to be unremarkable but subsequently the second set came in to be mildly abnormal. The patient was admitted to the intensive care unit. She was started on Lasix drip. She was also on BiPAP. I did start the patient on beta harley, AP inhibitor, and statin. She was already on aspirin which I continued. Continue heparin IV. I will follow-up with the serial cardiac enzymes to assess if the patient suffered an acute coronary syndrome. She stated that she never had any heart catheterization in the past and never seen any nurse intern in the past. And again she stated that she did not have any symptoms of chest pain or chest discomfort. On follow-up with the patient today on July [id number], she is doing significantly better. She is only on 3 L oxygen through nasal cannula. She denies having any chest pain or discomfort. The shortness of breath has improved significantly. Currently she is on metoprolol, Lipitor, and Heparin. I do recommend getting a heart catheterization next few days to rule out any severe underlying CAD. The creatinine is a slightly worse and I will DC the Lasix drip and start the patient on Lasix IV and DC the lisinopril and continue monitoring the kidney function. Objective - Vital Signs Vital signs: Vital Signs Temp 98.0 F 07/24/17 12:00 Pulse 72 07/24/17 12:00 Resp 22 07/24/17 12:00 BP 147/58 07/24/17 12:00 Pulse Ox 96 07/24/17 12:00 Intake & Output 07/23/17 07/24/17 07/24/17 19:59 06:59 18:59 Intake Total 50 Output Total 435 Balance -385 Weight Intake: IV 50 Normal Saline 50 Intake, IV Titration Amount Furosemide 250 mg In Sodium Chloride 0.9% 225 ml @ 5 MG/HR 5 mls/hr IVP .Q24H ANDREW Rx#:[id number] Heparin Sodium,Porcine/ D5w Pmx 25,000 unit In Dextrose/Water 1 500ml. bag @ 8.874 UNITS/KG/HR 20 mls/hr IV .Q24H ANDREW Rx #:[id number] Insulin Regular 100 unit In Sodium Chloride 0.9% 100 ml @ Per Protocol IV .Q0M ANDREW Rx#:[id number] Output: Urine 435 Other: Voiding Method Indwelling Catheter - Constitutional General appearance: Present: no acute distress - Respiratory Respiratory: bilateral: CTA - Cardiovascular Rhythm: regular Heart sounds: normal: S1, S2 - Labs CBC & Chem 7: 07/24/17 04:20 07/24/17 04:20 Labs: Abnormal Lab Results - Last 24 Hours (Table) 07/22/17 07/23/17 07/23/17 Range/Units 09:21 17:22 20:13 WBC (3.8-10.6) k/uL RBC (3.80-5.40) m/uL Hgb (11.4-16.0) gm/dL MCHC (31.0-37.0) g/dL Neutrophils # (1.3-7.7) k/uL Lymphocytes # (1.0-4.8) k/uL APTT (22.0-30.0) sec Carbon Dioxide (22-30) mmol/L BUN (7-17) mg/dL Creatinine (0.52-1.04) mg/dL Glucose (74-99) mg/dL POC Glucose (mg/dL) 124 H 306 H (75-99) mg/dL Hemoglobin A1c 6.4 H (4.0-6.0) % Phosphorus (2.5-4.5) mg/dL AST (14-36) U/L ALT (9-52) U/L Total Protein (6.3-8.2) g/dL Albumin (3.5-5.0) g/dL 07/23/17 07/24/17 07/24/17 Range/Units 23:30 04:20 04:20 WBC 16.0 H (3.8-10.6) k/uL RBC 3.72 L (3.80-5.40) m/uL Hgb 10.9 L (11.4-16.0) gm/dL MCHC 30.9 L (31.0-37.0) g/dL Neutrophils # 14.9 H (1.3-7.7) k/uL Lymphocytes # 0.5 L (1.0-4.8) k/uL APTT 44.7 H (22.0-30.0) sec Carbon Dioxide 33 H (22-30) mmol/L BUN 49 H (7-17) mg/dL Creatinine 1.24 H (0.52-1.04) mg/dL Glucose 339 H (74-99) mg/dL POC Glucose (mg/dL) (75-99) mg/dL Hemoglobin A1c (4.0-6.0) % Phosphorus 4.7 H (2.5-4.5) mg/dL AST 40 H (14-36) U/L ALT 70 H (9-52) U/L Total Protein 5.7 L (6.3-8.2) g/dL Albumin 2.9 L (3.5-5.0) g/dL 07/24/17 07/24/17 07/24/17 Range/Units 04:20 07:06 12:10 WBC (3.8-10.6) k/uL RBC (3.80-5.40) m/uL Hgb (11.4-16.0) gm/dL MCHC (31.0-37.0) g/dL Neutrophils # (1.3-7.7) k/uL Lymphocytes # (1.0-4.8) k/uL APTT 47.7 H (22.0-30.0) sec Carbon Dioxide (22-30) mmol/L BUN (7-17) mg/dL Creatinine (0.52-1.04) mg/dL Glucose (74-99) mg/dL POC Glucose (mg/dL) 355 H 402 H (75-99) mg/dL Hemoglobin A1c (4.0-6.0) % Phosphorus (2.5-4.5) mg/dL AST (14-36) U/L ALT (9-52) U/L Total Protein (6.3-8.2) g/dL Albumin (3.5-5.0) g/dL Microbiology - Last 24 Hours (Table) 07/22/17 09:21 Blood Culture - Preliminary Blood No Growth after 48 hours Assessment and Plan Assessment: This is a pleasant 61-year-old female patient with no prior cardiac history but history of obesity, diabetes, hypertension, dyslipidemia was brought to the emergency room with an acute respiratory distress and what it seems to be flash pulmonary edema. She has abnormal EKG indicating prior anterior myocardial infarction. The bedside echocardiogram revealed severe left ventricular systolic dysfunction. At this point, I would continue the Lasix drip. Maximize medical treatment with aspirin, beta harley, AP inhibitor, and statin. I recommended proceeding with heart catheterization in the next few days to rule out any severe underlying CAD.
[2017-07-24 17:29] LABS: Glucose,Whole Blood 322 mg/dL (75-99)
[2017-07-24] MEDS: SODIUM CHLORIDE 0.9% 1,000 ML IV SCH (18:15)
[2017-07-24] MEDS: HEPARIN SODIUM,PORCINE/D5W PMX 25,000 UNIT in DEXTROSE/WATER 1 500ML.BAG IV SCH (18:16)
[2017-07-24 20:37] LABS: Glucose,Whole Blood 435 mg/dL (75-99)
[2017-07-24] MEDS: INSULIN GLARGINE 100 UNIT/ML 10 ML VIAL SQ SCH (21:09)
[2017-07-24] MEDS: FUROSEMIDE 10 MG/ML 4 ML VIAL IV SCH (21:09)
[2017-07-25 02:52] LABS: Glucose,Whole Blood 154 mg/dL (75-99)
[2017-07-25 04:55] LABS: Basophils % (A) 0 %; CH 29.3; CHCM 31.4; Eosinophils # (A) 0.1 k/uL (0-0.7); Eosinophils % (A) 1 %; HCT 37.4 % (34.0-46.0); HDW 2.25; HGB 11.6 gm/dL (11.4-16.0); Luc # (Auto) 0.09; Luc % (Auto) 1; Lymphocytes # (A) 1.5 k/uL (1.0-4.8); Lymphocytes % (A) 10 %; MCH 29.2 pg (25.0-35.0); MCHC 31.1 g/dL (31.0-37.0); MCV 93.9 fL (80.0-100.0); Mean Platelet Volume 7.2; Monocytes # (A) 0.7 k/uL (0-1.0); Monocytes % (A) 4 %; Neutrophils # (A) 12.6 k/uL (1.3-7.7); Neutrophils % (A) 84 %; RBC 3.99 m/uL (3.80-5.40); RDW 14.4 % (11.5-15.5); WBC (Perox) 15.22
[2017-07-25 06:23] LABS: ALT 67 U/L (9-52); AST 30 U/L (14-36); Alkaline Phosphatase 119 U/L (38-126); Anion Gap 10 mmol/L; Blood Urea Nitrogen 51 mg/dL (7-17); Carbon Dioxide 35 mmol/L (22-30); Chloride 98 mmol/L (98-107); Glucose 110 mg/dL (74-99); Magnesium 2.2 mg/dL (1.6-2.3); Non-African American GFR(MDRD) 51 (>60 ml/min/1.73 sqM); Phosphorus 4.5 mg/dL (2.5-4.5); Potassium 3.9 mmol/L (3.5-5.1); Sodium 143 mmol/L (137-145); Total Bilirubin 0.4 mg/dL (0.2-1.3); Total Protein 6.4 g/dL (6.3-8.2)
[2017-07-25 07:16] LABS: Glucose,Whole Blood 83 mg/dL (75-99)
--- NOTE | 2017-07-25 07:33 | P.PN ---
Subjective Principal diagnosis: CHF This is a pleasant 61 year old female patient with a past medical history significant for morbid obesity, diabetes, hypertension, and dyslipidemia without any history of coronary artery disease or congestive heart failure or cardiac arrhythmia who never seen any auto headlight mechanic in the past was brought to the emergency room by ambulance with shortness of breath. The patient was in her usual state of health until earlier today when she developed a sudden onset of shortness of breath. She did not have any symptoms of chest pain or chest discomfort. No dizziness or lightheadedness. No syncope. The patient lives by herself. A friend of hers called the ambulance and the patient was brought to the emergency room where she was found to be in acute respiratory distress and she was hypoxic and was placed on BiPAP. The patient underwent a CTA of the chest which showed no evidence of PE. The chest x-ray showed finding consistent with bilateral infiltrate and possible CHF. The EKG showed sinus rhythm with poor R-wave progression and what it seems to be Q-wave across the whole chest leads. The patient seems that she suffered an acute anterolateral septal myocardial infarction in the past. An echocardiogram was performed at bedside and revealed severe lead impaired LV function with an ejection fraction around 30-35% with mid ventricle and apical hypokinesia and only portions of the LV arlen are the basal LV only. The first set of cardiac enzymes came in to be unremarkable but subsequently the second set came in to be mildly abnormal. The patient was admitted to the intensive care unit. She was started on Lasix drip. She was also on BiPAP. I did start the patient on beta harley, AP inhibitor, and statin. She was already on aspirin which I continued. Continue heparin IV. She stated that she never had any heart catheterization in the past and never seen any auto headlight mechanic in the past. And again she stated that she did not have any symptoms of chest pain or chest discomfort. On follow-up with the patient today on July [id number], she is doing significantly better. She is only on 3 L oxygen through nasal cannula. She denies having any chest pain or discomfort. The shortness of breath has improved significantly. I do recommend getting a heart catheterization next few days to rule out any severe underlying CAD. The creatinine is a slightly better. I would continue IV Lasix for additional 24 hours and then switch the patient to by mouth Lasix tomorrow. I will DC the heparin today. Objective - Vital Signs Vital signs: Vital Signs Temp 98.2 F 07/25/17 04:00 Pulse 65 07/25/17 04:00 Resp 21 07/25/17 04:00 BP 144/55 07/25/17 04:00 Pulse Ox 98 07/25/17 04:00 Intake & Output 07/24/17 07/25/17 07/25/17 18:59 06:59 18:59 Intake Total 411.333 220 Output Total 435 2100 Balance -23.667 -1880 Weight 112.6 kg Intake: IV 50 20 Normal Saline 50 20 Intake, IV Titration 361.333 200 Amount Heparin Sodium,Porcine/ 361.333 D5w Pmx 25,000 unit In Dextrose/Water 1 500ml. bag @ 8.874 UNITS/KG/HR 20 mls/hr IV .Q24H [facility] Rx #:[id number] Sodium Chloride 0.9% 1, 200 000 ml @ 20 mls/hr IV . Q24H [facility]REW Rx#:[id number] Output: Urine 435 2100 Other: Voiding Method Indwelling Catheter Indwelling Catheter - Constitutional General appearance: Present: no acute distress - Respiratory Respiratory: bilateral: CTA - Cardiovascular Rhythm: regular Heart sounds: normal: S1, S2 - Labs CBC & Chem 7: 07/25/17 04:15 07/25/17 04:15 Labs: Abnormal Lab Results - Last 24 Hours (Table) 07/24/17 07/24/17 07/24/17 Range/Units 12:10 17:27 20:25 WBC (3.8-10.6) k/uL Neutrophils # (1.3-7.7) k/uL Carbon Dioxide (22-30) mmol/L BUN (7-17) mg/dL Creatinine (0.52-1.04) mg/dL Glucose (74-99) mg/dL POC Glucose (mg/dL) 402 H 322 H 435 H (75-99) mg/dL ALT (9-52) U/L Albumin (3.5-5.0) g/dL 07/25/17 07/25/17 07/25/17 Range/Units 02:50 04:15 04:15 WBC 15.0 H (3.8-10.6) k/uL Neutrophils # 12.6 H (1.3-7.7) k/uL Carbon Dioxide 35 H (22-30) mmol/L BUN 51 H (7-17) mg/dL Creatinine 1.10 H (0.52-1.04) mg/dL Glucose 110 H (74-99) mg/dL POC Glucose (mg/dL) 154 H (75-99) mg/dL ALT 67 H (9-52) U/L Albumin 3.3 L (3.5-5.0) g/dL Microbiology - Last 24 Hours (Table) 07/22/17 09:21 Blood Culture - Preliminary Blood No Growth after 48 hours Assessment and Plan Assessment: This is a pleasant 61-year-old female patient with no prior cardiac history but history of obesity, diabetes, hypertension, dyslipidemia was brought to the emergency room with an acute respiratory distress and what it seems to be flash pulmonary edema. She has abnormal EKG indicating prior anterior myocardial infarction. The bedside echocardiogram revealed severe left ventricular systolic dysfunction. At this point, I would continue the Lasix drip. Maximize medical treatment with aspirin, beta harley, AP inhibitor, and statin. I recommended proceeding with heart catheterization in the next few days to rule out any severe underlying CAD.
[2017-07-25] MEDS: INSULIN LISPRO (humaLOG) 300 UNIT/3 ML VIAL SQ SCH ×7 (08:11→21:10)
[2017-07-25] MEDS: ASPIRIN 325 MG TAB PO SCH (08:13)
[2017-07-25] MEDS: FUROSEMIDE 10 MG/ML 4 ML VIAL IV SCH ×2 (08:14→20:03)
[2017-07-25] MEDS: FAMOTIDINE 20 MG TAB PO SCH (08:14)
[2017-07-25] MEDS: METOPROLOL TARTRATE 25 MG TAB PO SCH ×2 (08:14→20:03)
[2017-07-25] MEDS: ATORVASTATIN 40 MG TAB PO SCH (08:15)
--- NOTE | 2017-07-25 08:24 | XR ---
EXAMINATION TYPE: XR chest 1V DATE OF EXAM: 07/25/2017 HISTORY: Shortness of breath. COMPARISON: 07/24/2017 TECHNIQUE: Single view of the chest is submitted. FINDINGS: Demonstrated are scattered senescent parenchymal change. There is no evidence for focal infiltrate. The heart is stable. Hilar and mediastinal structures are within normal limits. Degenerative changes are seen of the dorsal spine. IMPRESSION: 1. Chronic changes without evidence for acute pulmonary disease.
[2017-07-25] MEDS: PANTOPRAZOLE 40 MG/10 ML VIAL IVP SCH (09:22)
--- NOTE | 2017-07-25 11:03 | P.PN ---
Subjective Progress Note Date: 07/25/17 07/22/2017 61-year-old female who presented to the emergency room on 07/22/2017 with a chief complaint of difficulty in breathing. The patient states she was getting ready for work this morning and was so short of breath she was unable to get ready this morning. The patient denied any other symptoms, but stated she was unable to breathe. The patient lives alone, so she called her friend to bring her to the emergency room for evaluation. Upon evaluation in the emergency room, she was noted to be tachycardic with a rate in the 130s. Her oxygen saturations were in the low 80s. She was placed on a BiPAP at 100% FiO2. A x-ray of the chest was completed which shows diffuse airspace disease. Her d-dimer was elevated upon admission at 1.44. A CT of the chest was completed which was negative for pulmonary embolism. An EKG was completed which shows sinus tachycardia with a rate in the 130s. It did show Q waves in leads V1 through V6. In the emergency room the patient received a dose of IV Lasix and also IV steroids. Her lactic acid on admission was 2.9. First troponin was negative. BNP was 561. White count was 9.8, hemoglobin 13.9, sodium 142, potassium 4.5. The patient has a history of diabetes mellitus, GERD, hypertension, osteoarthritis, hyperlipidemia, anxiety, and depression. She is a former smoker. The patient was admitted to the intensive care unit for close observation and monitoring under the care of Dr. Izaguirre. Consultations were placed to pulmonary, Dr. Antoine. The patient was seen and examined at the bedside by Dr. Izaguirre. She is currently wearing a BiPAP 100% FiO2. Recent ABGs show a pH of 7.33, CO2 of 60, pO2 of 72, and bicarb of 31. She states her breathing feels slightly improved since this morning. Her blood pressure is stable at the last reading of 137/ 72. She does remain slightly tachycardic with a rate between 100-110. Blood cultures were drawn and are pending. The patient states she has a cat at home and the patient has numerous scratches to her bilateral lower extremities. The patient was placed on a Lasix drip and insulin drip per pulmonary. An indwelling urinary catheter has been inserted. The patient has been placed on Zosyn and Levaquin. An echocardiogram was ordered and results are currently pending. 07/23/2017 (Note per Dr. Izaguirre) Is now off BiPAP and on nasal cannula oxygen. Her chest x-ray looks markedly improved. He is tolerating a regular diet at this time. She remains with a Pizano catheter and on insulin drip for her diabetes. cardiology feel she had flash pulmonary edema possibly from a recent myocardial infarction. 07/24/2017 (Note per Dr. Izaguirre) Feels a bit better. She is on 3 L of oxygen via nasal cannula. Her chest x- rays improved. She is diuresing nicely with a Lasix drip. Is currently at 5 mg an hour. Cardiology is started lisinopril and metoprolol twice a day. She does have a worsening GFR though, most likely from the diuresis. Pulmonology is going to stop the Solu-Medrol.. Cardiogram showed an ejection fraction of 30%. This was a study and they're concerned about possibly TAKOTSUBO SYNDROME. Off the insulin drip. She is currently on Lantus 20 and scale. Her sugars remain in the 300s. Complains of somewhat decreased appetite. She is also complaining of some heartburn after eating. last BM midnight. Pizano to gravity. 07/25/2017 Patient was seen and examined at the bedside. She has been moved out of the ICU to the selective care unit. Her Lasix drip has been discontinued. She is currently receiving Lasix 40 mg IV every 12 hours. She is on 3 L nasal cannula and maintaining an oxygen saturation greater than 92%. She denies any chest pain or pressure. She denies any shortness of breath. She does complain of some heartburn at times. She is tolerating a heart healthy consistent carbohydrate diet without complaint of nausea or vomiting. The patient is multiple scratches to her by lower extremities from her cat which seemed to be healing. Her white count this morning is 15.0 which is down from 16.0. Her creatinine has slightly improved and is down to 1.10 from 1.24. Her urinary catheter has been discontinued. Cardiology would like the patient to have a cardiac catheterization within the next few days to rule out underlying coronary artery disease. Objective - Vital Signs Vital signs: Vital Signs Temp 96.8 F L 07/25/17 10:29 Pulse 67 07/25/17 10:29 Resp 20 11/06/17 09:00 BP 115/47 07/25/17 10:29 Pulse Ox 98 07/25/17 10:29 Intake & Output 07/24/17 07/25/17 07/25/17 18:59 06:59 18:59 Intake Total 411.333 220 Output Total 435 2100 500 Balance -23.667 -1880 -500 Weight 112.6 kg Intake: IV 50 20 Normal Saline 50 20 Intake, IV Titration 361.333 200 Amount Heparin Sodium,Porcine/ 361.333 D5w Pmx 25,000 unit In Dextrose/Water 1 500ml. bag @ 8.874 UNITS/KG/HR 20 mls/hr IV .Q24H [facility]W Rx #:[id number] Sodium Chloride 0.9% 1, 200 000 ml @ 20 mls/hr IV . Q24H ANDREW Rx#:[id number] Output: Urine 435 2100 500 Other: Voiding Method Indwelling Catheter Indwelling Catheter Indwelling Catheter - Exam GENERAL: This is a obese 61-year-old female who appears in no acute distress at the time of examination. Pleasant and cooperative. HEENT: Head is atraumatic, normocephalic. Pupils are equal, round, and reactive to light. Sclerae anicteric. Conjunctivae are clear. Mucus membranes of the mouth are moist. Neck is supple. RESPIRATORY: Lungs clear throughout, diminished at the bases. Patient maintaining oxygen saturation greater than 92% on 3 L nasal cannula. No chest wall tenderness is noted on palpation or with deep breathing. CARDIOVASCULAR: Regular rate and rhythm. S1 and S2 noted. No systolic or diastolic murmur auscultated. No JVD noted. No S3 or S4 noted. GASTROINTESTINAL: No distention noted. Obese. Abdomen soft and round. Normal active bowel sounds auscultated x 4 quadrants. No pain or tenderness noted upon palpation. INTEGUMENTARY: Multiple cat scratches noted to bilateral lower extremities which have improved. No cyanosis. No jaundice. No rashes noted. No cellulitis noted. EXTREMITIES: 2+ peripheral pulses. +2 lower exterminate bilateral edema. No calf tenderness noted. NEUROLOGIC: Cranial nerves II-XII intact. PSYCHIATRIC: Awake, alert, and oriented X 3. Appropriate affect. Intact judgement and insight. - Labs CBC & Chem 7: 07/26/17 06:02 07/26/17 06:02 Labs: Abnormal Lab Results - Last 24 Hours (Table) 07/24/17 07/24/17 07/24/17 Range/Units 12:10 17:27 20:25 WBC (3.8-10.6) k/uL Neutrophils # (1.3-7.7) k/uL APTT (22.0-30.0) sec Carbon Dioxide (22-30) mmol/L BUN (7-17) mg/dL Creatinine (0.52-1.04) mg/dL Glucose (74-99) mg/dL POC Glucose (mg/dL) 402 H 322 H 435 H (75-99) mg/dL ALT (9-52) U/L Albumin (3.5-5.0) g/dL 07/25/17 07/25/17 07/25/17 Range/Units 02:50 04:15 04:15 WBC 15.0 H (3.8-10.6) k/uL Neutrophils # 12.6 H (1.3-7.7) k/uL APTT (22.0-30.0) sec Carbon Dioxide 35 H (22-30) mmol/L BUN 51 H (7-17) mg/dL Creatinine 1.10 H (0.52-1.04) mg/dL Glucose 110 H (74-99) mg/dL POC Glucose (mg/dL) 154 H (75-99) mg/dL ALT 67 H (9-52) U/L Albumin 3.3 L (3.5-5.0) g/dL 07/25/17 Range/Units 08:18 WBC (3.8-10.6) k/uL Neutrophils # (1.3-7.7) k/uL APTT 50.7 H (22.0-30.0) sec Carbon Dioxide (22-30) mmol/L BUN (7-17) mg/dL Creatinine (0.52-1.04) mg/dL Glucose (74-99) mg/dL POC Glucose (mg/dL) (75-99) mg/dL ALT (9-52) U/L Albumin (3.5-5.0) g/dL Microbiology - Last 24 Hours (Table) 07/22/17 09:21 Blood Culture - Preliminary Blood No Growth after 48 hours Assessment and Plan Plan: ASSESSMENT: Acute hypoxic respiratory failure, present on admission, secondary to acute pulmonary edema, improving Acute exacerbation of congestive heart failure with impaired LV function, echo shows EF between 25-30% EKG with Q waves in leads V1 through V6 with poor R-wave progression suggesting previous silent myocardial infarction Diabetes mellitus, type II, hemoglobin A1c 6.4% Uncontrolled hyperglycemia, secondary to IV steroids, improving Acute kidney injury, baseline 0.68, likely due to use of IV diuretics and AP inhibitor, improving Elevated d-dimer, CT of the chest negative for pulmonary embolus Gastroesophageal reflux disease History of tobacco abuse, in remission, patient quit smoking in 2004 Anxiety, unspecified Depression, unspecified Morbid obesity: BMI 42.6 PLAN: -Cardiology on consult. Appreciate recommendations and input -Patient likely to undergo cardiac catherization within the next few days per cardiology -Pulmonary on consult. Appreciate recommendations and input -Continue to monitor respiratory status -Continue antibiotics: Levaquin 500 mg by mouth daily -Continue to monitor capillary blood glucose -Continue insulin sliding scale coverage AC/HS -Continue lantus 30 units at HS and 5 units humalog AC TID -Home meds as appropriate -Monitor labs -Monitor kidney function -GI prophylaxis: Protonix 40 mg PO daily -DVT prophylaxis: IV heparin has been D/C. Begin heparin 5000 units subcu every 8 hours Nurse practitioner note has been reviewed by physician. Signing provider agrees with the documented findings, assessment, and plan of care.
[2017-07-25 11:41] LABS: Glucose,Whole Blood 231 mg/dL (75-99)
[2017-07-25] MEDS: LEVOFLOXACIN 500 MG TAB PO SCH (12:26)
--- NOTE | 2017-07-25 12:53 | P.PN ---
Subjective Progress Note Date: 07/25/17 Principal diagnosis: Acute hypoxic respiratory failure secondary to pulmonary edema secondary to LV dysfunction and systolic congestive heart failure. This is a morbidly obese 61-year-old female patient who lives independently at home. The patient has no immediate family members. Her parents of complications of diabetes mellitus and heart disease. She also has no siblings. There is a friend that came with this patient here to the emergency department. Apparently over the past few days the patient was progressively getting more short of breath. This morning she became significantly dyspneic. She reported that she was unable to breathe and perform activities of daily today life. For that reason she called EMS and she was brought into the hospital. She had limited cough. No significant sputum production. No fever chills or night sweats. No hemoptysis. No pleurisy. No angina. No chest pain. No palpitations. No calf tenderness. There is chronic lower extremity edema which has gotten slightly worse over the past few days. She is diabetic. EKG on arrival showed Q waves throughout the leads extending from V1 through V6 and the patient has poor R-wave progression. The chest x-ray showed diffuse bilateral pulmonary infiltrates and following that the patient a CAT scan of the chest which showed patchy diffuse groundglass opacification of the lungs bilaterally. There is also some more consolidation of the lung bases. Minimal mediastinal lymphadenopathy. No evidence of pulmonary embolism. No evidence of any pleural or pericardial effusion. The heart is mildly enlarged. The first set of cardiac enzyme was negative. The proBNP level is at 561. The rest of the blood work and advised are all within normal limits. The patient was placed on a BiPAP at a pressure of 12/6 cm of water with an FiO2 of 100%. The patient was also given a dose of Lasix 40 mg IV push. I this patient emergency department. The patient was tolerating the BiPAP and his saturation was above 90%. Nevertheless she was still short of breath even while in the BiPAP. She was unable to speak in full sentences. She was a bit uncomfortable and diaphoretic. She was alert and conscious and she was able to respond to questions appropriately. She denies having any previous pneumonias. No history of smoking. Most of asthma. Most of emphysema. No exposure to any organic or inorganic material. She has a cat at home. No other significant exposures or travel history. No sick contacts. No hemoptysis. No 70 connected tissue disease or vasculitis or lupus. A stat echocardiogram was done at the bedside and the patient was found to have a. LV function with significant anteroseptal and apical akinesis. The contractility was essentially in the mid ventricle and there was some ballooning of the LV and no significant valvular disruption was noted. Ejection fraction was estimated to be around 25-30%. The patient will be taken to the intensive care unit. I briefly discussed with her the possibility of being intubated and placed on a mechanical ventilator. She was a bit hesitant to this idea knowing that she has no other family members at least for now to make decisions for her if she is completely out under the effect of sedatives. A Pizano catheter will be inserted. On examination the patient is bronchus spastic and wheezy and she is crackling in the mid and lower lung hanna bilaterally. On 07/23/2017 the patient is being seen in follow-up. The patient is doing much better compared to yesterday. The patient with diuresis with IV Lasix at 5 mg an hour. Overall cardiac and pulmonary status improved considerably. The pulmonary edema is improving and the chest x-ray looks much better compared to yesterday. The patient was taken off the BiPAP and currently she is on oxygen 3 L/m nasal cannula and she is negative fluid balance approximately 3-4 L over the past 12 hours. The patient is maintaining her electrolytes with some borderline hypokalemia with a potassium level of 3.5. Urinalysis 29 and creatinine is at 1.0. Troponin peaked at 0.6. Influenza screen was negative. Blood cultures been negative. The patient will be taken off the Zosyn and be kept on Levaquin. Meanwhile, she was also seen by cardiology. The patient is on heparin drip. The patient on IV Solu-Medrol. On 07/24/2017 the patient is being seen in follow-up. She is on oxygen 3 L/m nasal cannula. Chest x-ray still showing pulmonary edema although improved. The patient is still on Lasix drip at 5 mg an hour. The patient is a negative fluid balance. The patient was also started on vishnu inhibitors and beta blockers. The patient is on a combination of Zestril 2.5 mg and metoprolol 12.5 mg by mouth twice a day. The patient is producing urine output. She has suffered an acute kidney injury with a creatinine is up to 1.2. She may be having underlying cardiorenal syndrome with poor cardiac output and diuresis also contributed to her acute kidney injury. The patient is still on IV Levaquin. The patient on IV Solu-Medrol. Blood sugars are elevated and this is essentially steroid-induced hyperglycemia. On examination she has no active bronchospasm wheezing and I think is very reasonable to discontinue the IV Solu Medrol for today. This will also help with a blood sugar control. The patient is currently off BiPAP. She on 3 L/m nasal cannula. No fever. No chills. No sputum production. No altered mentation. No chest pain. She remains on IV heparin and cardiology is on the case. Echocardiac Toan was done and showed ejection fraction of 25%. The patient had poor windows and valves cannot be accurately assessed. There was a concern for Takasubo syndrome. Patient was reevaluated today on 07/25/2017, remains on oxygen, feeling much better clinically, less shortness of breath, no cough no wheezing, no chest pain. Remains in negative fluid balance, patient is off the Lasix drip. Remains on vishnu inhibitors and beta blockers, patient is feeling significantly improved compared to how she felt upon admission. Cardiac workup is still pending, patient may require cardiac catheterization. Renal functioning is improved, BUN today is 51, creatinine is 1.1. remains on multiple cardiac meds , she is off Solu-Medrol, off BiPAP, remains on oxygen, Objective - Vital Signs Vital signs: Vital Signs Temp 96.8 F L 07/25/17 10:29 Pulse 67 07/25/17 10:29 Resp 20 07/25/17 09:00 BP 115/47 07/25/17 10:29 Pulse Ox 98 07/25/17 10:29 Intake & Output 07/24/17 07/25/17 07/25/17 18:59 06:59 18:59 Intake Total 411.333 220 Output Total 435 2100 500 Balance -23.667 -1880 -500 Weight 112.6 kg Intake: IV 50 20 Normal Saline 50 20 Intake, IV Titration 361.333 200 Amount Heparin Sodium,Porcine/ 361.333 D5w Pmx 25,000 unit In Dextrose/Water 1 500ml. bag @ 8.874 UNITS/KG/HR 20 mls/hr IV .Q24H [facility] Rx #:[id number] Sodium Chloride 0.9% 1, 200 000 ml @ 20 mls/hr IV . Q24H [facility] Rx#:[id number] Output: Urine 435 2100 500 Other: Voiding Method Indwelling Catheter Indwelling Catheter Indwelling Catheter - Exam Physical Exam: Revealed a 62-year-old female, obese, in no form of respiratory distress. HEENT:[Neck is supple.] [No neck masses.] [No thyromegaly.] [No JVD.] Chest: [Clear throughout, no crackles, no rhonchi, no wheezes.] Cardiac Exam: [Normal S1 and S2, no S3 gallop, no murmur.] Abdomen: [Soft, nontender, no megaly, no rebound, no guarding, normal bowel sounds.] Extremities: [No clubbing, 1+ bipedal edema, no cyanosis.] Neurological Exam: [No focal neurologic deficit.] Psychiatric: Normal mood and affect, normal mental status examination. Lymphatics: No lymphadenopathy. Musculoskeletal: Relatively unremarkable, no weakness, range of motion is full. - Labs CBC & Chem 7: 07/25/17 04:15 07/25/17 04:15 Labs: Abnormal Lab Results - Last 24 Hours (Table) 07/24/17 07/24/17 07/25/17 Range/Units 17:27 20:25 02:50 WBC (3.8-10.6) k/uL Neutrophils # (1.3-7.7) k/uL APTT (22.0-30.0) sec Carbon Dioxide (22-30) mmol/L BUN (7-17) mg/dL Creatinine (0.52-1.04) mg/dL Glucose (74-99) mg/dL POC Glucose (mg/dL) 322 H 435 H 154 H (75-99) mg/dL ALT (9-52) U/L Albumin (3.5-5.0) g/dL 07/25/17 07/25/17 07/25/17 Range/Units 04:15 04:15 08:18 WBC 15.0 H (3.8-10.6) k/uL Neutrophils # 12.6 H (1.3-7.7) k/uL APTT 50.7 H (22.0-30.0) sec Carbon Dioxide 35 H (22-30) mmol/L BUN 51 H (7-17) mg/dL Creatinine 1.10 H (0.52-1.04) mg/dL Glucose 110 H (74-99) mg/dL POC Glucose (mg/dL) (75-99) mg/dL ALT 67 H (9-52) U/L Albumin 3.3 L (3.5-5.0) g/dL 07/25/17 Range/Units 11:39 WBC (3.8-10.6) k/uL Neutrophils # (1.3-7.7) k/uL APTT (22.0-30.0) sec Carbon Dioxide (22-30) mmol/L BUN (7-17) mg/dL Creatinine (0.52-1.04) mg/dL Glucose (74-99) mg/dL POC Glucose (mg/dL) 231 H (75-99) mg/dL ALT (9-52) U/L Albumin (3.5-5.0) g/dL Microbiology - Last 24 Hours (Table) 07/22/17 09:21 Blood Culture - Preliminary Blood No Growth after 72 hours Assessment and Plan Plan: 1 acute hypoxic respiratory failure due to acute pulmonary edema, improving and the patient has been weaned down to 3 L of oxygen nasal cannula. She is still being diuresis with Lasix drip. She is on IV heparin. She has been taken off the BiPAP. On 07/24/2017, the patient's acute hypoxic respiratory failure was thought to be related to a cardiogenic pulmonary edema. Ejection fraction was around 25% and the patient has segmental wall motion abnormalities and the entire anterior LV wall is not arlen appropriately. There is also some aneurysmal ballooning. The echocardiogram was of a poor window and valves were not accurately assessed. Patient remains in acute pulmonary edema despite some interval improvement yet the patient is less short of breath. The patient is on previous of oxygen nasal cannula. She is currently on a combination of Zestril, metoprolol, and Lasix drip. She is also on IV heparin suspecting an acute non-ST segment elevation myocardial infarction. 2 acute BiPAP dependent respiratory failure, recovered, and the patient is currently on oxygen at 3 L/m nasal cannula 3 CHF with impaired LV function, awaiting final report on echocardiogram 4 diffuse Q waves extending V1 through V6 with poor R-wave progression suggestive of previous silent myocardial infarction setting of diabetes mellitus , with possibility of an acute non-ST elevation myocardial infarction with positive troponins, currently on IV heparin. The patient is also on oral aspirin. 5 diabetes mellitus, with a component of steroid-induced hyperglycemia. 6 obesity 7 acute kidney injury with a creatinine started a baseline of 0.68 and is currently up to 1.24. This is probably cardiorenal effect knowing that the patient is poor LV function. She is also on a combination of diuretics and vishnu inhibitors. We'll monitor the renal function. Ultrasound the kidneys will be needed. 8 anxiety/depression Recommendation: Overall the patient is feeling much better, responded well to diuretics, no need for Solu-Medrol anymore, on oral antibiotics, patient is to be considered for possible cardiac catheterization and further cardiac workup however that'll be decided upon by cardiology on the case. We'll continue to follow. Time with Patient: Less than 30
[2017-07-25 16:52] LABS: Glucose,Whole Blood 122 mg/dL (75-99)
[2017-07-25] MEDS: SODIUM CHLORIDE 0.9% 1,000 ML IV SCH (17:20)
[2017-07-25] MEDS: HEPARIN SODIUM,PORCINE 5,000 UNIT/ML 1 ML VIAL SQ SCH ×2 (17:22→23:35)
[2017-07-25] MEDS: ESCITALOPRAM 10 MG TAB PO SCH (20:03)
[2017-07-25 20:54] LABS: Glucose,Whole Blood 169 mg/dL (75-99)
[2017-07-25] MEDS: INSULIN GLARGINE 100 UNIT/ML 10 ML VIAL SQ SCH (21:10)
[2017-07-26 06:08] LABS: Glucose,Whole Blood 61 mg/dL (75-99)
[2017-07-26] MEDS: INSULIN LISPRO (humaLOG) 300 UNIT/3 ML VIAL SQ SCH ×5 (06:15→22:00)
[2017-07-26 06:21] LABS: Basophils % (A) 0 %; CH 29.3; CHCM 31.3; Eosinophils # (A) 0.3 k/uL (0-0.7); Eosinophils % (A) 4 %; HCT 38.4 % (34.0-46.0); HDW 2.31; HGB 11.8 gm/dL (11.4-16.0); Luc % (Auto) 1; Lymphocytes # (A) 2.8 k/uL (1.0-4.8); Lymphocytes % (A) 40 %; MCH 28.9 pg (25.0-35.0); MCHC 30.6 g/dL (31.0-37.0); MCV 94.2 fL (80.0-100.0); Monocytes # (A) 0.4 k/uL (0-1.0); Monocytes % (A) 6 %; Neutrophils # (A) 3.4 k/uL (1.3-7.7); Neutrophils % (A) 48 %; RBC 4.08 m/uL (3.80-5.40); RDW 14.3 % (11.5-15.5); WBC 7.1 k/uL (3.8-10.6); WBC (Perox) 7.15
[2017-07-26 06:30] LABS: Glucose,Whole Blood 77 mg/dL (75-99)
[2017-07-26] MEDS: PANTOPRAZOLE 40 MG TABLET PO SCH (06:34)
[2017-07-26 06:49] LABS: Anion Gap 6 mmol/L; Blood Urea Nitrogen 39 mg/dL (7-17); Calcium 8.9 mg/dL (8.4-10.2); Carbon Dioxide 34 mmol/L (22-30); Chloride 103 mmol/L (98-107); Glucose 65 mg/dL (74-99); Magnesium 1.9 mg/dL (1.6-2.3); Non-African American GFR(MDRD) 56 (>60 ml/min/1.73 sqM); Potassium 3.5 mmol/L (3.5-5.1); Sodium 143 mmol/L (137-145)
[2017-07-26] MEDS ORDERED: Potassium Replacement Protocol 1 EACH MISC MISCELLANE PRN (07:54)
[2017-07-26] MEDS: HEPARIN SODIUM,PORCINE 5,000 UNIT/ML 1 ML VIAL SQ SCH ×2 (08:40→16:27)
[2017-07-26] MEDS: ASPIRIN 325 MG TAB PO SCH (08:40)
[2017-07-26] MEDS: ATORVASTATIN 40 MG TAB PO SCH (08:40)
[2017-07-26] MEDS: METOPROLOL TARTRATE 25 MG TAB PO SCH ×2 (08:41→21:59)
[2017-07-26] MEDS: FUROSEMIDE 10 MG/ML 4 ML VIAL IV SCH (08:41)
[2017-07-26] MEDS: POTASSIUM CHLORIDE ER 20 MEQ TAB.ER PO SCH ×2 (08:41→09:59)
--- NOTE | 2017-07-26 09:45 | P.PN ---
Subjective Progress Note Date: 07/26/17 07/22/2017 61-year-old female who presented to the emergency room on 07/22/2017 with a chief complaint of difficulty in breathing. The patient states she was getting ready for work this morning and was so short of breath she was unable to get ready this morning. The patient denied any other symptoms, but stated she was unable to breathe. The patient lives alone, so she called her friend to bring her to the emergency room for evaluation. Upon evaluation in the emergency room, she was noted to be tachycardic with a rate in the 130s. Her oxygen saturations were in the low 80s. She was placed on a BiPAP at 100% FiO2. A x-ray of the chest was completed which shows diffuse airspace disease. Her d-dimer was elevated upon admission at 1.44. A CT of the chest was completed which was negative for pulmonary embolism. An EKG was completed which shows sinus tachycardia with a rate in the 130s. It did show Q waves in leads V1 through V6. In the emergency room the patient received a dose of IV Lasix and also IV steroids. Her lactic acid on admission was 2.9. First troponin was negative. BNP was 561. White count was 9.8, hemoglobin 13.9, sodium 142, potassium 4.5. The patient has a history of diabetes mellitus, GERD, hypertension, osteoarthritis, hyperlipidemia, anxiety, and depression. She is a former smoker. The patient was admitted to the intensive care unit for close observation and monitoring under the care of Dr. Izaguirre. Consultations were placed to pulmonary, Dr. Antoine. The patient was seen and examined at the bedside by Dr. Izaguirre. She is currently wearing a BiPAP 100% FiO2. Recent ABGs show a pH of 7.33, CO2 of 60, pO2 of 72, and bicarb of 31. She states her breathing feels slightly improved since this morning. Her blood pressure is stable at the last reading of 137/ 72. She does remain slightly tachycardic with a rate between 100-110. Blood cultures were drawn and are pending. The patient states she has a cat at home and the patient has numerous scratches to her bilateral lower extremities. The patient was placed on a Lasix drip and insulin drip per pulmonary. An indwelling urinary catheter has been inserted. The patient has been placed on Zosyn and Levaquin. An echocardiogram was ordered and results are currently pending. 07/23/2017 (Note per Dr. Izaguirre) Is now off BiPAP and on nasal cannula oxygen. Her chest x-ray looks markedly improved. He is tolerating a regular diet at this time. She remains with a Pizano catheter and on insulin drip for her diabetes. cardiology feel she had flash pulmonary edema possibly from a recent myocardial infarction. 07/24/2017 (Note per Dr. Izaguirre) Feels a bit better. She is on 3 L of oxygen via nasal cannula. Her chest x- rays improved. She is diuresing nicely with a Lasix drip. Is currently at 5 mg an hour. Cardiology is started lisinopril and metoprolol twice a day. She does have a worsening GFR though, most likely from the diuresis. Pulmonology is going to stop the Solu-Medrol.. Cardiogram showed an ejection fraction of 30%. This was a study and they're concerned about possibly TAKOTSUBO SYNDROME. Off the insulin drip. She is currently on Lantus 20 and scale. Her sugars remain in the 300s. Complains of somewhat decreased appetite. She is also complaining of some heartburn after eating. last BM midnight. Pizano to gravity. 07/25/2017 Patient was seen and examined at the bedside. She has been moved out of the ICU to the selective care unit. Her Lasix drip has been discontinued. She is currently receiving Lasix 40 mg IV every 12 hours. She is on 3 L nasal cannula and maintaining an oxygen saturation greater than 92%. She denies any chest pain or pressure. She denies any shortness of breath. She does complain of some heartburn at times. She is tolerating a heart healthy consistent carbohydrate diet without complaint of nausea or vomiting. The patient is multiple scratches to her by lower extremities from her cat which seemed to be healing. Her white count this morning is 15.0 which is down from 16.0. Her creatinine has slightly improved and is down to 1.10 from 1.24. Her urinary catheter has been discontinued. Cardiology would like the patient to have a cardiac catheterization within the next few days to rule out underlying coronary artery disease. 07/26/2017 Patient examined at the bedside. She states she is feeling well this morning. She denies chest pain or pressure. Denies shortness of breath. She is on room air with oxygen saturations greater than 92%. She remains on IV lasix 40mg every 12 hours. Her blood sugar this morning was noted to be 61. Repeat was 77. Patient is off steroids. Creatinine continues to improve: today is 1.01 from 1.10. Potassium is 3.5. WBC has improved from 15 to 7.1. She is tolerating an oral diet without nausea or vomiting. States appetite is good. Patient has been up ambulating in the room and to the bathroom without difficulty. Cardiology is following and anticipate cardiac catherization when they feel it is appropriate. Objective - Vital Signs Vital signs: Vital Signs Temp 97.2 F L 07/26/17 00:00 Pulse 69 07/26/17 04:00 Resp 16 07/26/17 04:00 BP 123/53 07/26/17 04:00 Pulse Ox 95 07/26/17 04:00 Intake & Output 07/25/17 07/26/17 07/26/17 18:59 06:59 18:59 Intake Total 480 100 0 Output Total 500 900 Balance -20 -800 0 Weight 112.3 kg Intake: IV 0 100 Normal Saline 0 100 Oral 480 0 Output: Urine 500 900 Other: Voiding Method Indwelling Catheter Toilet # Voids 1 - Exam GENERAL: This is a obese 61-year-old female who appears in no acute distress at the time of examination. Pleasant and cooperative. HEENT: Head is atraumatic, normocephalic. Pupils are equal, round, and reactive to light. Sclerae anicteric. Conjunctivae are clear. Mucus membranes of the mouth are moist. Neck is supple. RESPIRATORY: Lungs clear throughout, diminished at the bases. Patient maintaining oxygen saturation greater than 92% on room air. No chest wall tenderness is noted on palpation or with deep breathing. CARDIOVASCULAR: Regular rate and rhythm. S1 and S2 noted. No systolic or diastolic murmur auscultated. No JVD noted. No S3 or S4 noted. GASTROINTESTINAL: No distention noted. Obese. Abdomen soft and round. Normal active bowel sounds auscultated x 4 quadrants. No pain or tenderness noted upon palpation. INTEGUMENTARY: Multiple cat scratches noted to bilateral lower extremities which have improved. No cyanosis. No jaundice. No rashes noted. No cellulitis noted. EXTREMITIES: 2+ peripheral pulses. trace lower exterminate bilateral edema. No calf tenderness noted. NEUROLOGIC: Cranial nerves II-XII intact. PSYCHIATRIC: Awake, alert, and oriented X 3. Appropriate affect. Intact judgement and insight. - Labs CBC & Chem 7: 07/26/17 06:02 07/26/17 06:02 Labs: Abnormal Lab Results - Last 24 Hours (Table) 07/25/17 07/25/17 07/25/17 Range/Units 11:39 16:40 20:53 MCHC (31.0-37.0) g/dL Carbon Dioxide (22-30) mmol/L BUN (7-17) mg/dL Glucose (74-99) mg/dL POC Glucose (mg/dL) 231 H 122 H 169 H (75-99) mg/dL 07/26/17 07/26/17 07/26/17 Range/Units 06:02 06:02 06:06 MCHC 30.6 L (31.0-37.0) g/dL Carbon Dioxide 34 H (22-30) mmol/L BUN 39 H (7-17) mg/dL Glucose 65 L (74-99) mg/dL POC Glucose (mg/dL) 61 L (75-99) mg/dL Microbiology - Last 24 Hours (Table) 07/22/17 09:21 Blood Culture - Preliminary Blood No Growth after 72 hours Assessment and Plan Plan: ASSESSMENT: Acute hypoxic respiratory failure, present on admission, secondary to acute pulmonary edema, improving Acute exacerbation of congestive heart failure with impaired LV function, echo shows EF between 25-30% EKG with Q waves in leads V1 through V6 with poor R-wave progression suggesting previous silent myocardial infarction Diabetes mellitus, type II, hemoglobin A1c 6.4% Uncontrolled hyperglycemia, secondary to IV steroids, resolved Acute kidney injury, baseline 0.68, likely due to use of IV diuretics and AP inhibitor, improving Elevated d-dimer, CT of the chest negative for pulmonary embolus Gastroesophageal reflux disease History of tobacco abuse, in remission, patient quit smoking in 2004 Hypokalemia, secondary to diuresis Anxiety, unspecified Depression, unspecified Morbid obesity: BMI 42.6 PLAN: -Change lasix to PO if okay with cardiology and pulmonary -Cardiology on consult. Appreciate recommendations and input -Anticipate cardiac cath to be performed when cardiology feels it is appropriate -Pulmonary on consult. Appreciate recommendations and input -Continue to monitor respiratory status -Continue antibiotics: Levaquin 500 mg by mouth daily -Continue to monitor capillary blood glucose -Continue insulin sliding scale coverage AC/HS -Discontinue 5 units humalog with meals -Continue lantus 30 units [address] HS per Dr[address] Nolasco -Order 40meq of Kdur -Home meds as appropriate -Monitor labs -Monitor kidney function -GI prophylaxis: Protonix 40 mg PO daily -DVT prophylaxis: Heparin 5000 units subcu every 8 hours -Discharge planning: patient to return home Nurse practitioner note has been reviewed by physician. Signing provider agrees with the documented findings, assessment, and plan of care.
--- NOTE | 2017-07-26 11:04 | P.PN ---
Subjective Progress Note Date: 07/26/17 Principal diagnosis: Acute hypoxic respiratory failure secondary to pulmonary edema secondary to LV dysfunction and systolic congestive heart failure. This is a morbidly obese 61-year-old female patient who lives independently at home. The patient has no immediate family members. Her parents of complications of diabetes mellitus and heart disease. She also has no siblings. There is a friend that came with this patient here to the emergency department. Apparently over the past few days the patient was progressively getting more short of breath. This morning she became significantly dyspneic. She reported that she was unable to breathe and perform activities of daily today life. For that reason she called EMS and she was brought into the hospital. She had limited cough. No significant sputum production. No fever chills or night sweats. No hemoptysis. No pleurisy. No angina. No chest pain. No palpitations. No calf tenderness. There is chronic lower extremity edema which has gotten slightly worse over the past few days. She is diabetic. EKG on arrival showed Q waves throughout the leads extending from V1 through V6 and the patient has poor R-wave progression. The chest x-ray showed diffuse bilateral pulmonary infiltrates and following that the patient a CAT scan of the chest which showed patchy diffuse groundglass opacification of the lungs bilaterally. There is also some more consolidation of the lung bases. Minimal mediastinal lymphadenopathy. No evidence of pulmonary embolism. No evidence of any pleural or pericardial effusion. The heart is mildly enlarged. The first set of cardiac enzyme was negative. The proBNP level is at 561. The rest of the blood work and advised are all within normal limits. The patient was placed on a BiPAP at a pressure of 12/6 cm of water with an FiO2 of 100%. The patient was also given a dose of Lasix 40 mg IV push. I this patient emergency department. The patient was tolerating the BiPAP and his saturation was above 90%. Nevertheless she was still short of breath even while in the BiPAP. She was unable to speak in full sentences. She was a bit uncomfortable and diaphoretic. She was alert and conscious and she was able to respond to questions appropriately. She denies having any previous pneumonias. No history of smoking. Most of asthma. Most of emphysema. No exposure to any organic or inorganic material. She has a cat at home. No other significant exposures or travel history. No sick contacts. No hemoptysis. No 70 connected tissue disease or vasculitis or lupus. A stat echocardiogram was done at the bedside and the patient was found to have a. LV function with significant anteroseptal and apical akinesis. The contractility was essentially in the mid ventricle and there was some ballooning of the LV and no significant valvular disruption was noted. Ejection fraction was estimated to be around 25-30%. The patient will be taken to the intensive care unit. I briefly discussed with her the possibility of being intubated and placed on a mechanical ventilator. She was a bit hesitant to this idea knowing that she has no other family members at least for now to make decisions for her if she is completely out under the effect of sedatives. A Pizano catheter will be inserted. On examination the patient is bronchus spastic and wheezy and she is crackling in the mid and lower lung hanna bilaterally. On 07/23/2017 the patient is being seen in follow-up. The patient is doing much better compared to yesterday. The patient with diuresis with IV Lasix at 5 mg an hour. Overall cardiac and pulmonary status improved considerably. The pulmonary edema is improving and the chest x-ray looks much better compared to yesterday. The patient was taken off the BiPAP and currently she is on oxygen 3 L/m nasal cannula and she is negative fluid balance approximately 3-4 L over the past 12 hours. The patient is maintaining her electrolytes with some borderline hypokalemia with a potassium level of 3.5. Urinalysis 29 and creatinine is at 1.0. Troponin peaked at 0.6. Influenza screen was negative. Blood cultures been negative. The patient will be taken off the Zosyn and be kept on Levaquin. Meanwhile, she was also seen by cardiology. The patient is on heparin drip. The patient on IV Solu-Medrol. On 07/24/2017 the patient is being seen in follow-up. She is on oxygen 3 L/m nasal cannula. Chest x-ray still showing pulmonary edema although improved. The patient is still on Lasix drip at 5 mg an hour. The patient is a negative fluid balance. The patient was also started on vishnu inhibitors and beta blockers. The patient is on a combination of Zestril 2.5 mg and metoprolol 12.5 mg by mouth twice a day. The patient is producing urine output. She has suffered an acute kidney injury with a creatinine is up to 1.2. She may be having underlying cardiorenal syndrome with poor cardiac output and diuresis also contributed to her acute kidney injury. The patient is still on IV Levaquin. The patient on IV Solu-Medrol. Blood sugars are elevated and this is essentially steroid-induced hyperglycemia. On examination she has no active bronchospasm wheezing and I think is very reasonable to discontinue the IV Solu Medrol for today. This will also help with a blood sugar control. The patient is currently off BiPAP. She on 3 L/m nasal cannula. No fever. No chills. No sputum production. No altered mentation. No chest pain. She remains on IV heparin and cardiology is on the case. Echocardiac Toan was done and showed ejection fraction of 25%. The patient had poor windows and valves cannot be accurately assessed. There was a concern for Takasubo syndrome. Patient was reevaluated today on 07/25/2017, remains on oxygen, feeling much better clinically, less shortness of breath, no cough no wheezing, no chest pain. Remains in negative fluid balance, patient is off the Lasix drip. Remains on vishnu inhibitors and beta blockers, patient is feeling significantly improved compared to how she felt upon admission. Cardiac workup is still pending, patient may require cardiac catheterization. Renal functioning is improved, BUN today is 51, creatinine is 1.1. remains on multiple cardiac meds , she is off Solu-Medrol, off BiPAP, remains on oxygen, The patient is seen again today 07/26/2017 in follow-up on the selective care unit. She is awake and alert in no acute distress. She currently denies any worsening shortness of breath, cough or congestion. No chest pain, palpitations lightheadedness or dizziness. She remains on diuretics. She is in a negative balance. Creatinine 1.01. Objective - Vital Signs Vital signs: Vital Signs Temp 97.4 F L 07/26/17 08:00 Pulse 69 07/26/17 04:00 Resp 16 07/26/17 04:00 BP 151/72 07/26/17 08:00 Pulse Ox 95 07/26/17 04:00 Intake & Output 07/25/17 07/26/17 07/26/17 18:59 06:59 18:59 Intake Total 480 100 0 Output Total 500 900 400 Balance -20 -800 -400 Weight 112.3 kg Intake: IV 0 100 Normal Saline 0 100 Oral 480 0 Output: Urine 500 900 400 Other: Voiding Method Indwelling Catheter Toilet # Voids 1 - Exam In appearance the patient is much more comfortable compared to yesterday. The patient is less short of breath. She is able to hold a conversation speak in full sentences without any major difficulties. No agitation. No altered mentation.Head exam was generally normal. There was no scleral icterus or corneal arcus. Mucous membranes were moist.Neck was supple and without jugular venous distension, thyromegaly, or carotid bruits. Carotids were easily palpable bilaterally. There was no adenopathy. Lung sounds are showing diminished breath sounds although there is marked improvement in aeration at air entry bilaterally. Few crackles on the basis of still appreciated.Cardiac exam revealed the PMI to be normally situated and sized. The rhythm was regular and no extrasystoles were noted during several minutes of auscultation. The first and second heart sounds were normal and physiologic splitting of the second heart sound was noted. There were no murmurs, rubs, clicks, or gallops.Abdominal exam revealed normal bowel sounds. The abdomen was soft, non- tender, and without masses, organomegaly, or appreciable enlargement of the abdominal aorta. Extremities revealed improvement in the edema lower extremities bilaterally. There is no cyanosis or clubbing. Neurologic exam is within normal and the patient is awake and alert and is no focal neurological deficit. Psychiatric exam is appropriate and the patient has no anxiety or agitation.Examination of the skin revealed no evidence of significant rashes, suspicious appearing nevi or other concerning lesions. - Labs CBC & Chem 7: 07/26/17 06:02 07/26/17 06:02 Labs: Abnormal Lab Results - Last 24 Hours (Table) 07/25/17 07/25/17 07/25/17 Range/Units 11:39 16:40 20:53 MCHC (31.0-37.0) g/dL Carbon Dioxide (22-30) mmol/L BUN (7-17) mg/dL Glucose (74-99) mg/dL POC Glucose (mg/dL) 231 H 122 H 169 H (75-99) mg/dL 07/26/17 07/26/17 07/26/17 Range/Units 06:02 06:02 06:06 MCHC 30.6 L (31.0-37.0) g/dL Carbon Dioxide 34 H (22-30) mmol/L BUN 39 H (7-17) mg/dL Glucose 65 L (74-99) mg/dL POC Glucose (mg/dL) 61 L (75-99) mg/dL Microbiology - Last 24 Hours (Table) 07/22/17 09:21 Blood Culture - Preliminary Blood No Growth after 72 hours Assessment and Plan Assessment: Assessment 1 acute hypoxic respiratory failure due to acute pulmonary edema, improving and the patient has been weaned down to room air and maintaining good O2 saturations in the 90s. 2 acute BiPAP dependent respiratory failure, recovered 3 acute exacerbation of severe systolic congestive heart failure with severely impaired left ventricular systolic function with estimated ejection fraction 25- 30%. Question of Takotsubo. 4 diffuse Q waves extending V1 through V6 with poor R-wave progression suggestive of previous silent myocardial infarction setting of diabetes mellitus , with possibility of an recent non-ST elevation myocardial infarction with positive troponins, cardiac catheterization pending. 5 diabetes mellitus, with a component of steroid-induced hyperglycemia. 6 obesity 7 acute kidney injury with a creatinine started a baseline of 0.68 and is currently up to 1.24. Recovered with a creatinine of 1.01 today. 8 anxiety/depression Plan The patient was seen and evaluated by Dr. Del Real. She is currently stable from the pulmonary standpoint. Will await further input from cardiology. We'll continue with her current medications. We'll increase her activity as tolerated. We'll continue to follow. I, the cosigning physician, have performed a history and physical examination on the patient. Lung sounds are clear. Maintaining good O2 saturations in the 90s on room air. I have discussed the assessment and plan of care with my nurse practitioner, Melani Dukes. I attest the above documented note as dictated by her.
[2017-07-26 11:31] LABS: Glucose,Whole Blood 269 mg/dL (75-99)
[2017-07-26] MEDS ORDERED: ATORVASTATIN 40 MG TAB PO STA (11:56)
[2017-07-26] MEDS ORDERED: SODIUM CHLORIDE 0.9% 1,000 ML in EMPTY BAG 1 BAG IV ONE (11:56)
[2017-07-26] MEDS ORDERED: ASPIRIN 325 MG TAB PO STA (11:56)
[2017-07-26] MEDS ORDERED: NITROGLYCERIN SL TABS 0.4 MG TAB SUBLINGUAL PRN (11:56)
[2017-07-26] MEDS ORDERED: ALPRAZolam 0.5 MG TAB PO PRN (11:56)
[2017-07-26] MEDS: LEVOFLOXACIN 500 MG TAB PO SCH (12:22)
--- NOTE | 2017-07-26 13:42 | P.PN ---
Subjective Progress Note Date: 07/26/17 Principal diagnosis: Acute pulmonary edema This is a 61-year-old female with history of diabetes, hypertension, hyperlipidemia, morbid obesity, who presented to the hospital via ambulance with symptoms of severe shortness of breath. She denied any associated chest discomfort, no dizziness or lightheadedness. Patient was found to be in acute respiratory distress and what appeared to be a flash pulmonary edema. Chest x- ray revealed findings consistent with bilateral infiltrates and congestive heart failure. CTA of the chest was also performed on admission which was negative for pulmonary embolism. EKG on admission here revealed poor R-wave progression and Q waves present across the chest leads. It appears that the patient may have suffered an acute anterior lateral septal myocardial infarction in the past. Echocardiogram with Doppler study was performed which revealed severely impaired left ventricular systolic function with an ejection fraction around 25-30% with mid ventricular and apical hypokinesia, only the portions of the LV arlen where the base. She was initiated on IV Lasix, she diuresed well, she was seen and examined on the telemetry unit today. Up ambulating without any difficulty. Denies any shortness of breath, states that she's feeling significantly better. Patient was recommended to undergo a heart catheterization to rule out any severe underlying coronary artery disease. The risks and the benefits were explained to her in detail, she's willing to proceed. This will be performed tomorrow by Dr. Pagan. We'll discontinue her IV Lasix today and start her on oral diuretics. Blood pressure today 124/54 with a heart rate in the 60s to 70s. Repeat chest x-ray was performed yesterday which revealed chronic changes without any evidence for acute pulmonary disease. Objective - Vital Signs Vital signs: Vital Signs Temp 97.4 F L 07/26/17 08:00 Pulse 69 07/26/17 08:00 Resp 16 07/26/17 08:00 BP 151/72 07/26/17 08:00 Pulse Ox 95 07/26/17 04:00 Intake & Output 07/25/17 07/26/17 07/26/17 18:59 06:59 18:59 Intake Total 480 100 240 Output Total 500 900 400 Balance -20 -800 -160 Weight 112.3 kg Intake: IV 0 100 Normal Saline 0 100 Oral 480 240 Output: Urine 500 900 400 Other: Voiding Method Indwelling Catheter Toilet Toilet # Voids 1 - Exam PHYSICAL EXAMINATION: HEENT: Head is atraumatic, normocephalic. Pupils equal, round. Neck is supple. There is no elevated jugular venous pressure. HEART EXAMINATION: Heart S1, S2 normal. No murmur or gallop heard. CHEST EXAMINATION: Lungs are clear with mild diminished air entry to the bases. ABDOMEN: Soft, nontender. Bowel sounds are heard. No organomegaly noted. EXTREMITIES: 2+ peripheral pulses with trace evidence of peripheral edema and no calf tenderness noted. NEUROLOGIC patient is awake, alert and oriented -3. . - Labs CBC & Chem 7: 07/26/17 06:02 07/26/17 06:02 Labs: Abnormal Lab Results - Last 24 Hours (Table) 07/25/17 07/25/17 07/26/17 Range/Units 16:40 20:53 06:02 MCHC 30.6 L (31.0-37.0) g/dL Carbon Dioxide (22-30) mmol/L BUN (7-17) mg/dL Glucose (74-99) mg/dL POC Glucose (mg/dL) 122 H 169 H (75-99) mg/dL 07/26/17 07/26/17 07/26/17 Range/Units 06:02 06:06 11:29 MCHC (31.0-37.0) g/dL Carbon Dioxide 34 H (22-30) mmol/L BUN 39 H (7-17) mg/dL Glucose 65 L (74-99) mg/dL POC Glucose (mg/dL) 61 L 269 H (75-99) mg/dL Microbiology - Last 24 Hours (Table) 07/22/17 09:21 Blood Culture - Preliminary Blood No Growth after 96 hours Assessment and Plan Plan: Assessment and plan #1 acute pulmonary edema, patient overall diuresed well on IV Lasix, we will switch over to oral diuretics today. Currently maintaining good oxygen saturation today, in the 90s. #2 systolic congestive heart failure acute on chronic, echocardiogram with Doppler study revealed an ejection fraction of 25-30%. #3 diabetes #4 acute on chronic kidney disease #5 hyperlipidemia Plan We will discontinue the IV Lasix and start the patient on oral diuretics today. Patient has also been advised to undergo cardiac catheterization to rule out any significant underlying coronary artery disease. The risks and the benefits were explained to the patient in detail and she is willing to proceed. This will be performed tomorrow by Dr. Pagan. DNP note has been reviewed, I agree with a documented findings and plan of care. Patient was seen and examined.
[2017-07-26] MEDS: ALPRAZolam 0.25 MG TAB PO PRN ×2 (16:26→22:00)
[2017-07-26] MEDS: SODIUM CHLORIDE 0.9% 1,000 ML IV SCH (16:28)
[2017-07-26 16:33] LABS: Glucose,Whole Blood 194 mg/dL (75-99)
[2017-07-26] MEDS: FUROSEMIDE 40 MG TAB PO SCH (17:09)
[2017-07-26 20:51] LABS: Glucose,Whole Blood 285 mg/dL (75-99)
[2017-07-26] MEDS ORDERED: INSULIN GLARGINE 100 UNIT/ML 10 ML VIAL SQ SCH ×2 (21:00)
[2017-07-26] MEDS: ESCITALOPRAM 10 MG TAB PO SCH (22:00)
[2017-07-27] MEDS: HEPARIN SODIUM,PORCINE 5,000 UNIT/ML 1 ML VIAL SQ SCH ×3 (00:19→17:25)
[2017-07-27 06:08] LABS: Glucose,Whole Blood 227 mg/dL (75-99)
[2017-07-27 06:21] LABS: Basophils % (A) 0 %; CH 28.9; CHCM 31.2; Eosinophils # (A) 0.4 k/uL (0-0.7); Eosinophils % (A) 7 %; HCT 38.5 % (34.0-46.0); HGB 12.1 gm/dL (11.4-16.0); Hypochromasia Slight; Luc # (Auto) 0.11; Luc % (Auto) 2; Lymphocytes # (A) 1.8 k/uL (1.0-4.8); Lymphocytes % (A) 29 %; MCH 29.4 pg (25.0-35.0); MCHC 31.5 g/dL (31.0-37.0); MCV 93.4 fL (80.0-100.0); Mean Platelet Volume 7.9; Monocytes # (A) 0.4 k/uL (0-1.0); Monocytes % (A) 7 %; Neutrophils # (A) 3.6 k/uL (1.3-7.7); Neutrophils % (A) 56 %; RBC 4.12 m/uL (3.80-5.40); RDW 15.6 % (11.5-15.5); WBC 6.4 k/uL (3.8-10.6); WBC (Perox) 6.87
[2017-07-27 06:33] LABS: Anion Gap 5 mmol/L; Blood Urea Nitrogen 29 mg/dL (7-17); Calcium 8.9 mg/dL (8.4-10.2); Carbon Dioxide 32 mmol/L (22-30); Chloride 104 mmol/L (98-107); Glucose 211 mg/dL (74-99); Magnesium 1.8 mg/dL (1.6-2.3); Non-African American GFR(MDRD) >60 (>60 ml/min/1.73 sqM); Potassium 4.2 mmol/L (3.5-5.1); Sodium 141 mmol/L (137-145)
[2017-07-27] MEDS: INSULIN LISPRO (humaLOG) 300 UNIT/3 ML VIAL SQ SCH ×2 (06:43→12:33)
[2017-07-27] MEDS: ATORVASTATIN 40 MG TAB PO SCH (06:43)
[2017-07-27] MEDS: METOPROLOL TARTRATE 25 MG TAB PO SCH ×2 (06:43→22:01)
[2017-07-27] MEDS: PANTOPRAZOLE 40 MG TABLET PO SCH (06:43)
[2017-07-27] MEDS: ASPIRIN 325 MG TAB PO SCH (06:43)
[2017-07-27] MEDS: FUROSEMIDE 40 MG TAB PO SCH ×2 (09:45→17:25)
--- NOTE | 2017-07-27 10:32 | P.PN ---
Subjective Progress Note Date: 07/27/17 07/22/2017 61-year-old female who presented to the emergency room on 07/22/2017 with a chief complaint of difficulty in breathing. The patient states she was getting ready for work this morning and was so short of breath she was unable to get ready this morning. The patient denied any other symptoms, but stated she was unable to breathe. The patient lives alone, so she called her friend to bring her to the emergency room for evaluation. Upon evaluation in the emergency room, she was noted to be tachycardic with a rate in the 130s. Her oxygen saturations were in the low 80s. She was placed on a BiPAP at 100% FiO2. A x-ray of the chest was completed which shows diffuse airspace disease. Her d-dimer was elevated upon admission at 1.44. A CT of the chest was completed which was negative for pulmonary embolism. An EKG was completed which shows sinus tachycardia with a rate in the 130s. It did show Q waves in leads V1 through V6. In the emergency room the patient received a dose of IV Lasix and also IV steroids. Her lactic acid on admission was 2.9. First troponin was negative. BNP was 561. White count was 9.8, hemoglobin 13.9, sodium 142, potassium 4.5. The patient has a history of diabetes mellitus, GERD, hypertension, osteoarthritis, hyperlipidemia, anxiety, and depression. She is a former smoker. The patient was admitted to the intensive care unit for close observation and monitoring under the care of Dr. Izaguirre. Consultations were placed to pulmonary, Dr. Antoine. The patient was seen and examined at the bedside by Dr. Izaguirre. She is currently wearing a BiPAP 100% FiO2. Recent ABGs show a pH of 7.33, CO2 of 60, pO2 of 72, and bicarb of 31. She states her breathing feels slightly improved since this morning. Her blood pressure is stable at the last reading of 137/ 72. She does remain slightly tachycardic with a rate between 100-110. Blood cultures were drawn and are pending. The patient states she has a cat at home and the patient has numerous scratches to her bilateral lower extremities. The patient was placed on a Lasix drip and insulin drip per pulmonary. An indwelling urinary catheter has been inserted. The patient has been placed on Zosyn and Levaquin. An echocardiogram was ordered and results are currently pending. 07/23/2017 (Note per Dr. Izaguirre) Is now off BiPAP and on nasal cannula oxygen. Her chest x-ray looks markedly improved. He is tolerating a regular diet at this time. She remains with a Pizano catheter and on insulin drip for her diabetes. cardiology feel she had flash pulmonary edema possibly from a recent myocardial infarction. 07/24/2017 (Note per Dr. Izaguirre) Feels a bit better. She is on 3 L of oxygen via nasal cannula. Her chest x- rays improved. She is diuresing nicely with a Lasix drip. Is currently at 5 mg an hour. Cardiology is started lisinopril and metoprolol twice a day. She does have a worsening GFR though, most likely from the diuresis. Pulmonology is going to stop the Solu-Medrol.. Cardiogram showed an ejection fraction of 30%. This was a study and they're concerned about possibly TAKOTSUBO SYNDROME. Off the insulin drip. She is currently on Lantus 20 and scale. Her sugars remain in the 300s. Complains of somewhat decreased appetite. She is also complaining of some heartburn after eating. last BM midnight. Pizano to gravity. 07/25/2017 Patient was seen and examined at the bedside. She has been moved out of the ICU to the selective care unit. Her Lasix drip has been discontinued. She is currently receiving Lasix 40 mg IV every 12 hours. She is on 3 L nasal cannula and maintaining an oxygen saturation greater than 92%. She denies any chest pain or pressure. She denies any shortness of breath. She does complain of some heartburn at times. She is tolerating a heart healthy consistent carbohydrate diet without complaint of nausea or vomiting. The patient is multiple scratches to her by lower extremities from her cat which seemed to be healing. Her white count this morning is 15.0 which is down from 16.0. Her creatinine has slightly improved and is down to 1.10 from 1.24. Her urinary catheter has been discontinued. Cardiology would like the patient to have a cardiac catheterization within the next few days to rule out underlying coronary artery disease. 07/26/2017 Patient examined at the bedside. She states she is feeling well this morning. She denies chest pain or pressure. Denies shortness of breath. She is on room air with oxygen saturations greater than 92%. She remains on IV lasix 40mg every 12 hours. Her blood sugar this morning was noted to be 61. Repeat was 77. Patient is off steroids. Creatinine continues to improve: today is 1.01 from 1.10. Potassium is 3.5. WBC has improved from 15 to 7.1. She is tolerating an oral diet without nausea or vomiting. States appetite is good. Patient has been up ambulating in the room and to the bathroom without difficulty. Cardiology is following and anticipate cardiac catherization when they feel it is appropriate. 07/27/2017 Patient examined at the bedside. Patient is scheduled for a cardiac catherization today. Patient states she is feeling anxious regarding procedure because she is afraid of what they may find. Her lasix has been transitioned to oral per cardiology. Patient denies chest pain or pressure. Denies shortness of breath. Remains on room air with oxygen saturations greater than 92%. Creatinine continues to improve daily. Creatinine today is 0.89. Yesterday 1.01. WBC is 6.4. She is afebrile. Her blood sugars remain elevated over 200. She is currently on sliding scale coverage and 30 units lantus at night. Objective - Vital Signs Vital signs: Vital Signs Temp 98.2 F 07/27/17 07:57 Pulse 62 07/27/17 07:57 Resp 18 07/27/17 07:57 BP 129/55 07/27/17 07:57 Pulse Ox 98 07/27/17 07:57 Intake & Output 07/26/17 07/27/17 07/27/17 18:59 06:59 18:59 Intake Total 740 926 Output Total 1350 700 Balance -610 226 Weight 111.4 kg Intake: IV 20 30 Invasive Line 3 20 30 Intake, IV Titration 896 Amount Sodium Chloride 0.9% 1, 896 000 ml In Empty Bag 1 bag @ 1 ML/KG/HR 112.3 mls/ hr IV .[id number] ONE Rx#: [id number] Oral 720 Output: Urine 1350 700 Other: Voiding Method Toilet Toilet - Exam GENERAL: This is a obese 61-year-old female who appears in no acute distress at the time of examination. Pleasant and cooperative. HEENT: Head is atraumatic, normocephalic. Pupils are equal, round, and reactive to light. Sclerae anicteric. Conjunctivae are clear. Mucus membranes of the mouth are moist. Neck is supple. RESPIRATORY: Lungs clear throughout, diminished at the bases. Patient maintaining oxygen saturation greater than 92% on room air. No chest wall tenderness is noted on palpation or with deep breathing. CARDIOVASCULAR: Regular rate and rhythm. S1 and S2 noted. No systolic or diastolic murmur auscultated. No JVD noted. No S3 or S4 noted. GASTROINTESTINAL: No distention noted. Obese. Abdomen soft and round. Normal active bowel sounds auscultated x 4 quadrants. No pain or tenderness noted upon palpation. INTEGUMENTARY: Multiple cat scratches noted to bilateral lower extremities in the healing stage. No cyanosis. No jaundice. No rashes noted. No cellulitis noted. EXTREMITIES: 2+ peripheral pulses. No lower extremity bilateral edema. No calf tenderness noted. NEUROLOGIC: Cranial nerves II-XII intact. PSYCHIATRIC: Awake, alert, and oriented X 3. Appropriate affect. Intact judgement and insight. - Labs CBC & Chem 7: 07/27/17 05:50 07/27/17 05:50 Labs: Abnormal Lab Results - Last 24 Hours (Table) 07/26/17 07/26/17 07/26/17 Range/Units 11:29 16:32 20:49 RDW (11.5-15.5) % Carbon Dioxide (22-30) mmol/L BUN (7-17) mg/dL Glucose (74-99) mg/dL POC Glucose (mg/dL) 269 H 194 H 285 H (75-99) mg/dL 07/27/17 07/27/17 07/27/17 Range/Units 05:50 05:50 06:06 RDW 15.6 H (11.5-15.5) % Carbon Dioxide 32 H (22-30) mmol/L BUN 29 H (7-17) mg/dL Glucose 211 H (74-99) mg/dL POC Glucose (mg/dL) 227 H (75-99) mg/dL Microbiology - Last 24 Hours (Table) 07/22/17 09:21 Blood Culture - Preliminary Blood No Growth after 96 hours Assessment and Plan Plan: ASSESSMENT: Acute hypoxic respiratory failure, present on admission, secondary to acute pulmonary edema, improving Acute on chronic systolic congestive heart failure, echo shows EF between 25-30% EKG with Q waves in leads V1 through V6 with poor R-wave progression suggesting previous silent myocardial infarction Diabetes mellitus, type II, hemoglobin A1c 6.4% Acute kidney injury, baseline 0.68, likely due to use of IV diuretics and AP inhibitor, improving Elevated d-dimer, CT of the chest negative for pulmonary embolus Gastroesophageal reflux disease History of tobacco abuse, in remission, patient quit smoking in 2004 Hypokalemia, secondary to diuresis Anxiety, unspecified Depression, unspecified Morbid obesity: BMI 42.6 PLAN: -Cardiology on consult. Appreciate recommendations and input -Patient scheduled for cardiac catherization today -Pulmonary on consult. Appreciate recommendations and input -Continue antibiotics: Levaquin 500 mg by mouth daily -Continue to monitor capillary blood glucose -Continue insulin sliding scale coverage AC/HS -Increase lantus to 40 units at HS -Home meds as appropriate -Monitor labs -GI prophylaxis: Protonix 40 mg PO daily -DVT prophylaxis: Heparin 5000 units subcu every 8 hours -Discharge planning: patient to return home -Further recommendations pending patients clinical course Nurse practitioner note has been reviewed by physician. Signing provider agrees with the documented findings, assessment, and plan of care.
--- NOTE | 2017-07-27 10:34 | P.PN ---
Subjective Progress Note Date: 07/27/17 Principal diagnosis: Acute hypoxic respiratory failure secondary to pulmonary edema secondary to LV dysfunction and systolic congestive heart failure. This is a morbidly obese 61-year-old female patient who lives independently at home. The patient has no immediate family members. Her parents of complications of diabetes mellitus and heart disease. She also has no siblings. There is a friend that came with this patient here to the emergency department. Apparently over the past few days the patient was progressively getting more short of breath. This morning she became significantly dyspneic. She reported that she was unable to breathe and perform activities of daily today life. For that reason she called EMS and she was brought into the hospital. She had limited cough. No significant sputum production. No fever chills or night sweats. No hemoptysis. No pleurisy. No angina. No chest pain. No palpitations. No calf tenderness. There is chronic lower extremity edema which has gotten slightly worse over the past few days. She is diabetic. EKG on arrival showed Q waves throughout the leads extending from V1 through V6 and the patient has poor R-wave progression. The chest x-ray showed diffuse bilateral pulmonary infiltrates and following that the patient a CAT scan of the chest which showed patchy diffuse groundglass opacification of the lungs bilaterally. There is also some more consolidation of the lung bases. Minimal mediastinal lymphadenopathy. No evidence of pulmonary embolism. No evidence of any pleural or pericardial effusion. The heart is mildly enlarged. The first set of cardiac enzyme was negative. The proBNP level is at 561. The rest of the blood work and advised are all within normal limits. The patient was placed on a BiPAP at a pressure of 12/6 cm of water with an FiO2 of 100%. The patient was also given a dose of Lasix 40 mg IV push. I this patient emergency department. The patient was tolerating the BiPAP and his saturation was above 90%. Nevertheless she was still short of breath even while in the BiPAP. She was unable to speak in full sentences. She was a bit uncomfortable and diaphoretic. She was alert and conscious and she was able to respond to questions appropriately. She denies having any previous pneumonias. No history of smoking. Most of asthma. Most of emphysema. No exposure to any organic or inorganic material. She has a cat at home. No other significant exposures or travel history. No sick contacts. No hemoptysis. No 70 connected tissue disease or vasculitis or lupus. A stat echocardiogram was done at the bedside and the patient was found to have a. LV function with significant anteroseptal and apical akinesis. The contractility was essentially in the mid ventricle and there was some ballooning of the LV and no significant valvular disruption was noted. Ejection fraction was estimated to be around 25-30%. The patient will be taken to the intensive care unit. I briefly discussed with her the possibility of being intubated and placed on a mechanical ventilator. She was a bit hesitant to this idea knowing that she has no other family members at least for now to make decisions for her if she is completely out under the effect of sedatives. A Pizano catheter will be inserted. On examination the patient is bronchus spastic and wheezy and she is crackling in the mid and lower lung hanna bilaterally. On 07/23/2017 the patient is being seen in follow-up. The patient is doing much better compared to yesterday. The patient with diuresis with IV Lasix at 5 mg an hour. Overall cardiac and pulmonary status improved considerably. The pulmonary edema is improving and the chest x-ray looks much better compared to yesterday. The patient was taken off the BiPAP and currently she is on oxygen 3 L/m nasal cannula and she is negative fluid balance approximately 3-4 L over the past 12 hours. The patient is maintaining her electrolytes with some borderline hypokalemia with a potassium level of 3.5. Urinalysis 29 and creatinine is at 1.0. Troponin peaked at 0.6. Influenza screen was negative. Blood cultures been negative. The patient will be taken off the Zosyn and be kept on Levaquin. Meanwhile, she was also seen by cardiology. The patient is on heparin drip. The patient on IV Solu-Medrol. On 07/24/2017 the patient is being seen in follow-up. She is on oxygen 3 L/m nasal cannula. Chest x-ray still showing pulmonary edema although improved. The patient is still on Lasix drip at 5 mg an hour. The patient is a negative fluid balance. The patient was also started on vishnu inhibitors and beta blockers. The patient is on a combination of Zestril 2.5 mg and metoprolol 12.5 mg by mouth twice a day. The patient is producing urine output. She has suffered an acute kidney injury with a creatinine is up to 1.2. She may be having underlying cardiorenal syndrome with poor cardiac output and diuresis also contributed to her acute kidney injury. The patient is still on IV Levaquin. The patient on IV Solu-Medrol. Blood sugars are elevated and this is essentially steroid-induced hyperglycemia. On examination she has no active bronchospasm wheezing and I think is very reasonable to discontinue the IV Solu Medrol for today. This will also help with a blood sugar control. The patient is currently off BiPAP. She on 3 L/m nasal cannula. No fever. No chills. No sputum production. No altered mentation. No chest pain. She remains on IV heparin and cardiology is on the case. Echocardiac Toan was done and showed ejection fraction of 25%. The patient had poor windows and valves cannot be accurately assessed. There was a concern for Takasubo syndrome. Patient was reevaluated today on 07/25/2017, remains on oxygen, feeling much better clinically, less shortness of breath, no cough no wheezing, no chest pain. Remains in negative fluid balance, patient is off the Lasix drip. Remains on vishnu inhibitors and beta blockers, patient is feeling significantly improved compared to how she felt upon admission. Cardiac workup is still pending, patient may require cardiac catheterization. Renal functioning is improved, BUN today is 51, creatinine is 1.1. remains on multiple cardiac meds , she is off Solu-Medrol, off BiPAP, remains on oxygen, The patient is seen again today 07/26/2017 in follow-up on the selective care unit. She is awake and alert in no acute distress. She currently denies any worsening shortness of breath, cough or congestion. No chest pain, palpitations lightheadedness or dizziness. She remains on diuretics. She is in a negative balance. Creatinine 1.01. The patient is seen again today 07/27/2017 in follow-up on the selective care unit. She is resting quite comfortably in bed. She is awake and alert in no acute distress. She is maintaining good O2 saturations in the 90s on room air. She denies any worsening shortness of breath, cough or congestion. No chest pain, palpitations, lightheadedness or dizziness. The plan is for cardiac catheterization today. She's been nothing by mouth. Objective - Vital Signs Vital signs: Vital Signs Temp 98.2 F 07/27/17 07:57 Pulse 62 07/27/17 07:57 Resp 18 07/27/17 07:57 BP 129/55 07/27/17 07:57 Pulse Ox 98 07/27/17 07:57 Intake & Output 07/26/17 07/27/17 07/27/17 18:59 06:59 18:59 Intake Total 740 926 Output Total 1350 700 Balance -610 226 Weight 111.4 kg Intake: IV 20 30 Invasive Line 3 20 30 Intake, IV Titration 896 Amount Sodium Chloride 0.9% 1, 896 000 ml In Empty Bag 1 bag @ 1 ML/KG/HR 112.3 mls/ hr IV .[id number] ONE Rx#: [id number] Oral 720 Output: Urine 1350 700 Other: Voiding Method Toilet Toilet - Exam The patient is awake and alert in no acute distress.Head exam was generally normal. There was no scleral icterus or corneal arcus. Mucous membranes were moist.Neck was supple and without jugular venous distension, thyromegaly, or carotid bruits. Carotids were easily palpable bilaterally. There was no adenopathy. Lung sounds are showing diminished breath sounds although there is marked improvement in aeration at air entry bilaterally. Few crackles on the basis of still appreciated.Cardiac exam revealed the PMI to be normally situated and sized. The rhythm was regular and no extrasystoles were noted during several minutes of auscultation. The first and second heart sounds were normal and physiologic splitting of the second heart sound was noted. There were no murmurs, rubs, clicks, or gallops.Abdominal exam revealed normal bowel sounds. The abdomen was soft, non-tender, and without masses, organomegaly, or appreciable enlargement of the abdominal aorta. Extremities revealed improvement in the edema lower extremities bilaterally. There is no cyanosis or clubbing. Neurologic exam is within normal and the patient is awake and alert and is no focal neurological deficit. Psychiatric exam is appropriate and the patient has no anxiety or agitation.Examination of the skin revealed no evidence of significant rashes, suspicious appearing nevi or other concerning lesions. - Labs CBC & Chem 7: 07/27/17 05:50 07/27/17 05:50 Labs: Abnormal Lab Results - Last 24 Hours (Table) 07/26/17 07/26/1707/26/17 Range/Units 11:29 16:32 20:49 RDW (11.5-15.5) % Carbon Dioxide (22-30) mmol/L BUN (7-17) mg/dL Glucose (74-99) mg/dL POC Glucose (mg/dL) 269 H 194 H 285 H (75-99) mg/dL 07/27/17 07/27/17 07/27/17 Range/Units 05:50 05:50 06:06 RDW 15.6 H (11.5-15.5) % Carbon Dioxide 32 H (22-30) mmol/L BUN 29 H (7-17) mg/dL Glucose 211 H (74-99) mg/dL POC Glucose (mg/dL) 227 H (75-99) mg/dL Microbiology - Last 24 Hours (Table) 07/22/17 09:21 Blood Culture - Preliminary Blood No Growth after 96 hours Assessment and Plan Assessment: Assessment 1 acute hypoxic respiratory failure due to acute pulmonary edema, recovered and the patient has been weaned down to room air and maintaining good O2 saturations in the 90s. 2 acute BiPAP dependent respiratory failure, recovered 3 acute exacerbation of severe systolic congestive heart failure with severely impaired left ventricular systolic function with estimated ejection fraction 25- 30%. Question of Takotsubo. 4 diffuse Q waves extending V1 through V6 with poor R-wave progression suggestive of previous silent myocardial infarction setting of diabetes mellitus , with possibility of an recent non-ST elevation myocardial infarction with positive troponins, cardiac catheterization pending. 5 diabetes mellitus, with a component of steroid-induced hyperglycemia. 6 obesity 7 acute kidney injury with a creatinine started a baseline of 0.68 and is currently up to 1.24. Recovered with a creatinine of 1.01 today. 8 anxiety/depression Plan The patient was seen and evaluated by Dr. Del Real. She is currently stable from the pulmonary standpoint. We will await results of the cardiac catheterization. We'll continue with her current medications. We'll increase her activity as tolerated. We'll continue to follow. I, the cosigning physician, have performed a history and physical examination on the patient. Lung sounds are clear. Maintaining good O2 saturations in the 90s on room air. I have discussed the assessment and plan of care with my nurse practitioner, Melani Dukes. I attest the above documented note as dictated by her.
[2017-07-27] MEDS: ALPRAZolam 0.25 MG TAB PO PRN ×2 (10:57→22:01)
[2017-07-27] MEDS: LEVOFLOXACIN 500 MG TAB PO SCH (10:57)
[2017-07-27 11:41] LABS: Glucose,Whole Blood 70 mg/dL (75-99)
[2017-07-27 12:07] LABS: Glucose,Whole Blood 103 mg/dL (75-99)
[2017-07-27] MEDS ORDERED: LIDOCAINE 2% INJ 20 MG/ML (20 ML MDV) ONE (13:33)
[2017-07-27] MEDS ORDERED: VERAPAMIL 2.5 MG/ML 2 ML AMP ONE (13:33)
[2017-07-27] MEDS ORDERED: MIDAZOLAM 2 MG/2 ML VIAL ONE (13:33)
[2017-07-27] MEDS ORDERED: LIDOCAINE 2% INJ 20 MG/ML SQ ONE (13:39)
[2017-07-27] MEDS: MIDAZOLAM 2 MG/2 ML VIAL IV ONE ×2 (13:39→13:45)
[2017-07-27] MEDS ORDERED: VERAPAMIL SYRINGE (5 MG/10 ML) INTRAARTER ONE ×2 (13:40→13:42)
[2017-07-27] MEDS ORDERED: IV FLUID CONTINUATION 900 ML IV ONE (13:40)
[2017-07-27] MEDS ORDERED: HEPARIN SODIUM 1,000 UN/ML (10ML VL) ONE (13:41)
[2017-07-27] MEDS ORDERED: HEPARIN SODIUM 1,000 UN/ML (10ML VL) IV ONE (13:45)
[2017-07-27] MEDS: VERAPAMIL SYRINGE (5 MG/10 ML) INTRAARTER ONE ×2 (13:45→14:01)
[2017-07-27] MEDS ORDERED: IOHEXOL 350 MG/ML 125ML BOTTLE INJ ONE (13:59)
[2017-07-27] MEDS ORDERED: RX INFO: IV CONTRAST WAS GIVEN 1 EACH MISC MISCELLANE PRN ×2 (14:15→15:00)
[2017-07-27] MEDS: SODIUM CHLORIDE 0.9% 1,000 ML IV SCH ×3 (14:41→15:39)
[2017-07-27] MEDS ORDERED: SODIUM CHLORIDE 0.9% 1,000 ML IV SCH (15:00)
[2017-07-27] MEDS ORDERED: INSULIN DETEMIR 100 UNIT/ML 10 ML VIAL SQ SCH (16:34)
--- NOTE | 2017-07-27 16:40 | P.GSCN ---
History of Present Illness Consult date: 07/27/17 Reason for Consult: Coronary artery disease, recommendations for surgical revascularization. Requesting physician: Rafael Pagan History of present illness: This 61-year-old female with a previous medical history of insulin-dependent diabetes, hypertension, hyperlipidemia, GERD, previous tobacco dependence, and family history of coronary artery disease presented to the emergency department on 07/22/2017 with complaints of increasing shortness of breath. Apparently her difficulty in breathing had progressed to the point where she was unable to perform her normal daily activities. She denied chest pain, palpitations, calf tenderness/pain, nausea, vomiting. She did complain of a cough without sputum production. She also complained of lower extremity edema which is chronic for her but had gotten progressively worse over the previous few days. EKG in the emergency department demonstrated Q waves in leads V1 through 56. Chest x-ray demonstrated diffuse bilateral pulmonary infiltrates. Computed tomography scan of the chest demonstrated patchy diffuse groundglass opacification of the bilateral lungs without any evidence of pulmonary embolism. Due to her significant work in breathing she was placed on BiPAP and given Lasix, she was admitted to the ICU for hypoxic respiratory failure. She was able to be weaned off BiPAP, she diuresed, and was eventually transferred to [address] [place] [address]. She had a limited echocardiogram done which demonstrated an ejection fraction between 25-30%. She was taken to the [facility] this morning by Dr. Pagan and was found to have coronary artery disease. Dr. Owusu was consulted regarding possible surgical revascularization. Review of Systems 14 Review of systems was completed and was negative except as noted. - Cardiovascular Reports as per HPI, Reports decreased exercise tolerance, Reports dyspnea on exertion, Reports leg edema, Reports shortness of breath - Respiratory Reports as per HPI, Reports cough, Reports dyspnea Past Medical History Past Medical History: Diabetes Mellitus, GERD/Reflux, Hyperlipidemia, Hypertension, Osteoarthritis (OA) Additional Past Medical History / Comment(s): Bronchitis, current cat scratches bilateral legs, arthritis bilateral knees. History of Any Multi-Drug Resistant Organisms: None Reported Past Surgical History: Tonsillectomy Additional Past Surgical History / Comment(s): D&C x 2 Past Anesthesia/Blood Transfusion Reactions: No Reported Reaction Past Psychological History: Anxiety, Depression Additional Psychological History / Comment(s): Pt resides alone. She does not drive, a friend takes her to [employer] She works at [employer]. Smoking Status: Former smoker Past Alcohol Use History: None Reported Additional Past Alcohol Use History / Comment(s): Pt started smoking in 1977 and quit in 2004. Past Drug Use History: None Reported - Past Family History Father Family Medical History: Cancer Additional Family Medical History / Comment(s): Father of lung and prostate cancer at the age of 71 or 72 yrs. Mother Family Medical History: Coronary Artery Disease (CAD), CVA/TIA Additional Family Medical History / Comment(s): Mother of a CVA at the age of 87yrs. Medications and Allergies Home Medications Medication Instructions Recorded Confirmed Type Escitalopram [Lexapro] 10 mg PO HS 07/22/17 07/22/17 History Insulin NPH Hum/Reg Insulin Hm 15 unit SQ AC-SUPPER 07/22/17 07/22/17 History [NovoLIN 70-30 100 UNIT/ML VIAL] Insulin NPH Hum/Reg Insulin Hm 20 unit SQ AC-BRKFST 07/22/17 07/22/17 History [Novolin 70-30 100 Unit/ml Vial] Lisinopril [Zestril] 5 mg PO HS 07/22/17 07/22/17 History Meloxicam 7.5 mg PO BID 07/22/17 07/22/17 History Allergies Allergy/AdvReac Type Severity Reaction Status Date / Time No Known Allergies Allergy Verified 07/22/17 10:04 Surgical - Exam Vital Signs Temp Pulse Resp Pulse Ox 97.0 F L 137 H 34 H 84 L 07/22/17 09:07 07/22/17 09:07 07/22/17 09:07 07/22/17 09:07 - General well developed, well nourished, no distress, no pain - Eyes PERRL, normal ocular movement - ENT no hearing loss - Neck no masses, no bruits, trachea midline - Respiratory Lungs sounds diminished bilaterally with coarse breath sounds in the bases. Respirations even, nonlabored. Currently on room air with oxygen saturation 95% . - Cardiovascular S1, S2 present. Regular rate and rhythm, normal sinus rhythm on telemetry. Palpable radial, DP, PT pulses bilaterally. 2+ edema to bilateral lower extremities. - Abdomen Abdomen: soft, non tender, bowel sounds - Genitourinary Deferred - Rectum Deferred - Integumentary no rash - Neurologic normal coordination, normal sensation - Psychiatric oriented to time, oriented to person, oriented to place, speech is normal, memory intact Results - Labs 07/27/17 05:50 07/27/17 05:50 Abnormal Lab Results - Last 24 Hours (Table) 07/26/17 07/26/17 07/27/17 Range/Units 16:32 20:49 05:50 RDW 15.6 H (11.5-15.5) % Carbon Dioxide (22-30) mmol/L BUN (7-17) mg/dL Glucose (74-99) mg/dL POC Glucose (mg/dL) 194 H 285 H (75-99) mg/dL 07/27/17 07/27/17 07/27/17 Range/Units 05:50 06:06 11:33 RDW (11.5-15.5) % Carbon Dioxide 32 H (22-30) mmol/L BUN 29 H (7-17) mg/dL Glucose 211 H (74-99) mg/dL POC Glucose (mg/dL) 227 H 70 L (75-99) mg/dL 07/27/17 Range/Units 12:05 RDW (11.5-15.5) % Carbon Dioxide (22-30) mmol/L BUN (7-17) mg/dL Glucose (74-99) mg/dL POC Glucose (mg/dL) 103 H (75-99) mg/dL Microbiology - Last 24 Hours (Table) 07/22/17 09:21 Blood Culture - Preliminary Blood No Growth after 120 hours Diabetes panel 07/27/17 Range/Units 05:50 Sodium 141 (137-145) mmol/L Potassium 4.2 (3.5-5.1) mmol/L Chloride 104 (98-107) mmol/L Carbon Dioxide 32 H (22-30) mmol/L BUN 29 H (7-17) mg/dL Creatinine 0.89 (0.52-1.04) mg/dL Glucose 211 H (74-99) mg/dL Calcium 8.9 (8.4-10.2) mg/dL Calcium panel 07/27/17 Range/Units 05:50 Calcium 8.9 (8.4-10.2) mg/dL Pituitary panel 07/27/17 Range/Units 05:50 Sodium 141 (137-145) mmol/L Potassium 4.2 (3.5-5.1) mmol/L Chloride 104 (98-107) mmol/L Carbon Dioxide 32 H (22-30) mmol/L BUN 29 H (7-17) mg/dL Creatinine 0.89 (0.52-1.04) mg/dL Glucose 211 H (74-99) mg/dL Calcium 8.9 (8.4-10.2) mg/dL Adrenal panel 07/27/17 Range/Units 05:50 Sodium 141 (137-145) mmol/L Potassium 4.2 (3.5-5.1) mmol/L Chloride 104 (98-107) mmol/L Carbon Dioxide 32 H (22-30) mmol/L BUN 29 H (7-17) mg/dL Creatinine 0.89 (0.52-1.04) mg/dL Glucose 211 H (74-99) mg/dL Calcium 8.9 (8.4-10.2) mg/dL - Imaging Chest x-ray: report reviewed, image reviewed CT scan - chest: report reviewed, image reviewed EKG: image reviewed Assessment and Plan (1) Coronary artery disease Current Visit: Yes Status: Acute Code(s): I25.10 - ATHSCL HEART DISEASE OF [place] CORONARY ARTERY W/O ANG PCTRS SNOMED Code(s): 04581171 (2) Systolic heart failure Current Visit: Yes Status: Acute Code(s): I50.20 - UNSPECIFIED SYSTOLIC ( CONGESTIVE) HEART FAILURE SNOMED Code(s): 310230486 (3) Insulin dependent diabetes mellitus Current Visit: Yes Status: Acute Code(s): E11.9 - TYPE 2 DIABETES MELLITUS WITHOUT COMPLICATIONS; Z79.4 - ARMATURE BALANCER (CURRENT) USE OF INSULIN SNOMED Code( s): 99630057 (4) Morbid obesity Current Visit: Yes Status: Acute Code(s): E66.01 - MORBID (SEVERE) OBESITY DUE TO EXCESS CALORIES SNOMED Code(s): 568712386 (5) Hypertension Current Visit: Yes Status: Acute Code(s): I10 - ESSENTIAL (PRIMARY) HYPERTENSION SNOMED Code(s): 73132335 (6) Hyperlipidemia Current Visit: Yes Status: Acute Code(s): E78.5 - HYPERLIPIDEMIA, UNSPECIFIED SNOMED Code(s): 42161959 (7) Tobacco dependence in remission Current Visit: Yes Status: Acute Code(s): F17.201 - NICOTINE DEPENDENCE, UNSPECIFIED, IN REMISSION SNOMED Code(s): 129452565 Plan: Patient was seen and examined in the [facility] with Dr. Owusu. Chart/ diagnostics were reviewed. Discussion was had between Dr. Owusu and Dr. Pagan regarding treatment. We would recommend maximizing medical therapy with beta blockers, afterload reduction. The patient likely has had an old myocardial infarction, we would like to evaluate the extent of myocardial damage. We will obtain a full 2-D echo and carotid Dopplers. Further recommendations to follow. Thank you Dr. Pagan for this consult. We look forward to working with you in the care of your patient. Time with Patient: Greater than 30
[2017-07-27 16:48] LABS: Glucose,Whole Blood 321 mg/dL (75-99)
[2017-07-27] MEDS: INSULIN ASPART 100 UNIT/ML 1 ML 10 ML VIAL SQ SCH ×2 (17:25→22:01)
--- NOTE | 2017-07-27 17:44 | CC ---
CARDIAC CATHETERIZATION REPORT DATE OF SERVICE: July 27, 2017 PERFORMING PHYSICIAN: Rafael Pagan MD, fabrication department supervisor. PROCEDURE PERFORMED: 1. Selective right and left coronary angiogram. 2. Left heart catheterization. 3. Left ventriculography. INDICATION: This is a pleasant 61-year-old female patient who presented to the hospital with difficulty in breathing and ruled in for acute non ST elevation myocardial infarction. The EKG showed sinus rhythm with Q-wave in the anteroseptal leads. The cardiac enzymes came in to be abnormal. APPROACH: Right radial artery. COMPLICATION: None. LEVEL OF SEDATION: Moderate with sedation length of 27 minutes. PROCEDURE DESCRIPTION: After obtaining informed consent, the patient was brought to cardiac laborer aquatic life. The right radial artery was cannulated using micropuncture technique, the micropuncture wire passed easily. Then I placed a 6-Indonesian sheath in the right radial artery. Subsequently I did give the patient 2 mg of verapamil IA and 10,000 units of heparin IV. After that, I did selective right and left coronary angiogram using JR4 and JL3 0.5 catheters. After that I did left heart catheterization using 5-Indonesian pigtail catheter. The procedure was completed without any complication. SELECTIVE CORONARY ANGIOGRAM: 1. The right coronary artery is a large caliber vessel and it is a dominant vessel. The proximal RCA appeared to have mild disease only. The mid RCA has a lesion eccentric appeared to be in the range of 70%. The RCA distally appeared to have mild disease only and bifurcates into PDA and PLV branches. Both are angiographically normal. 2. The left main is angiographically normal. It bifurcates into the left circumflex and left anterior descending artery. The left main has mild disease only. It bifurcates into the left circumflex and left anterior descending artery. 3. Left circumflex is a large caliber vessel. It is a nondominant vessel. The proximal circ appeared to be angiographically normal and gives rise into the first OM branch which appeared to have mild disease only. The second OM branch appeared to have a lesion in the range of 80%. The circumflex continued after that as a small-caliber vessel in the AV groove. 4. The left anterior descending artery: The very proximal LAD appeared to be angiographically normal. The mid LAD by the bifurcation of the first diagonal and first septal water resources engineer has a complex lesion involving the first diagonal branch. This lesion appeared to be in the range of 80-90%. This lesion involving the ostial diagonal as well. In the ostial diagonal appeared to be a large caliber vessel with mild to moderate diffuse disease in the proximal and midportion. The LAD after that become small to medium caliber vessel. HEMODYNAMICS: The left ventricular end-diastolic pressure was 20 mmHg and no gradient was identified across the aortic valve. Left ventriculography was performed in the MCKENNA projection and using a power injection. Left ventricular systolic function appeared to be in the range of 40-45% with mid ventricle and apical hypokinesia. CONCLUSION: 1. Severe triple-vessel coronary artery disease. 2. Impaired LV function with an ejection fraction between 40-45%. POST PROCEDURE MANAGEMENT: 1. Maximize medical treatment at this point of time. 2. Consult surgery for the evaluation of coronary artery bypass grafting. MMASHWIN / IJN: [id number] /
--- NOTE | 2017-07-27 18:17 | US ---
EXAMINATION TYPE: US carotid duplex BILAT DATE OF EXAM: 07/27/2017 COMPARISON: NONE CLINICAL HISTORY: carotid stenosis. EXAM MEASUREMENTS: RIGHT: Peak Systolic Velocity (PSV) cm/sec ----- Right CCA: 65.7 ----- Right ICA: 89.0 ----- Right ECA: 120.7 ICA/CCA ratio: 1.4 RIGHT: End Diastole cm/sec ----- Right CCA: 9.5 ----- Right ICA: 17.7 ----- Right ECA: 0.0 LEFT: Peak Systolic Velocity (PSV) cm/sec ----- Left CCA: 72.6 ----- Left ICA: 92.8 ----- Left ECA: 133.2 ICA/CCA ratio: 1.3 LEFT: End Diastole cm/sec ----- Left CCA: 11.5 ----- Left ICA: 24.1 ----- Left ECA: 133.2 VERTEBRALS (direction of flow): Right Vertebral: Antegrade Left Vertebral: Antegrade Rhythm: Arrhythmia Mild plaque, no significant velocity elevations. IMPRESSION: There is antegrade flow in the vertebral arteries. The images and measurements suggest 2 5% stenosis in both internal carotid arteries. Criteria for Assigning % of Stenosis / Diameter reduction (Estimation based on the indirect measurements of the internal carotid artery velocities (ICA PSV). 1. Normal (no stenosis)=ICA PSV < 125 cm/s: ratio < 2.0: ICA EDV<40 cm/s. 2. Less than 50% stenosis=ICA PSV < 125 cm/s: ratio < 2.0: ICA EDV<40 cm/s. 3. 50 to 69% stenosis=ICA PSV of 125 to 230 cm/s: ration 2.0 ? 4.0: ICA EDV 40-100 cm/s. 4. Greater than 70% stenosis to near occlusion= ICA PSV > 230 cm/s: ratio > 4.0: ICA EDV > 100 cm/s. 5. Near occlusion= ICA PSV velocities may be low or undetectable: variable ratio and ICA EDV. 6. Total occlusion=unable to detect flow.
[2017-07-27 21:07] LABS: Glucose,Whole Blood 205 mg/dL (75-99)
[2017-07-27 21:08] VITALS: RESP 18
[2017-07-27] MEDS: ESCITALOPRAM 10 MG TAB PO SCH (22:01)
[2017-07-28] MEDS: HEPARIN SODIUM,PORCINE 5,000 UNIT/ML 1 ML VIAL SQ SCH ×3 (00:07→15:17)
[2017-07-28 06:03] LABS: Glucose,Whole Blood 71 mg/dL (75-99)
[2017-07-28] MEDS: INSULIN ASPART 100 UNIT/ML 1 ML 10 ML VIAL SQ SCH ×2 (06:24→12:05)
[2017-07-28 06:35] LABS: Basophils % (A) 0 %; CH 29.2; Eosinophils # (A) 0.6 k/uL (0-0.7); Eosinophils % (A) 9 %; HDW 2.34; HGB 12.1 gm/dL (11.4-16.0); Hypochromasia Slight; Luc # (Auto) 0.15; Luc % (Auto) 2; Lymphocytes # (A) 1.8 k/uL (1.0-4.8); Lymphocytes % (A) 25 %; MCH 29.5 pg (25.0-35.0); MCHC 31.1 g/dL (31.0-37.0); MCV 94.9 fL (80.0-100.0); Mean Platelet Volume 7.1; Monocytes # (A) 0.5 k/uL (0-1.0); Monocytes % (A) 7 %; Neutrophils # (A) 4.2 k/uL (1.3-7.7); Neutrophils % (A) 57 %; RBC 4.11 m/uL (3.80-5.40); RDW 14.3 % (11.5-15.5); WBC 7.2 k/uL (3.8-10.6); WBC (Perox) 7.53
[2017-07-28 06:44] LABS: Anion Gap 4 mmol/L; Blood Urea Nitrogen 22 mg/dL (7-17); Calcium 9.2 mg/dL (8.4-10.2); Carbon Dioxide 35 mmol/L (22-30); Chloride 101 mmol/L (98-107); Glucose 55 mg/dL (74-99); Non-African American GFR(MDRD) >60 (>60 ml/min/1.73 sqM); Potassium 4.8 mmol/L (3.5-5.1); Sodium 140 mmol/L (137-145)
[2017-07-28] MEDS: PANTOPRAZOLE 40 MG TABLET PO SCH (06:45)
--- NOTE | 2017-07-28 08:10 | P.PN ---
Subjective Progress Note Date: 07/28/17 Principal diagnosis: Coronary artery disease. History of insulin-dependent diabetes, hypertension, hyperlipidemia, GERD, previous tobacco dependence, and family history of coronary artery disease. Patient is currently sitting up in bed in no acute distress. Denies pain, shortness of breath. No concerns. Echocardiogram and carotid Dopplers completed yesterday. No significant carotid stenosis noted. Objective - Vital Signs Vital signs: Vital Signs Temp 98.2 F 07/28/17 04:00 Pulse 66 07/28/17 04:00 Resp 18 07/28/17 04:00 BP 143/62 07/28/17 04:00 Pulse Ox 95 07/28/17 04:00 Intake & Output 07/27/17 07/28/17 07/28/17 18:59 06:59 18:59 Intake Total 600 Balance 600 Weight 111.3 kg Intake: IV 200 Normal Saline 100 Oral 400 Other: Voiding Method Toilet # Voids 2 - Constitutional General appearance: Present: cooperative, morbidly obese, no acute distress - Respiratory Details: Lungs sounds diminished bilaterally. Respirations even, nonlabored. Currently on room air with oxygen saturation of 95%. - Cardiovascular Details: S1, S2 present. Regular rate and rhythm, normal sinus rhythm on telemetry. Palpable radial, DP, PT pulses bilaterally. Bilateral lower extremity edema present. - Gastrointestinal Gastrointestinal Comment(s): Abdomen soft, nontender, nondistended. Active bowel sounds 4 quadrants. Tolerating diet. - Genitourinary Genitourinary Comment(s): Continues to void. - Neurologic Neurologic: Present: CNII-XII intact - Musculoskeletal Musculoskeletal: Present: strength equal bilaterally - Psychiatric Psychiatric: Present: A&O x's 3, appropriate affect, intact judgment & insight - Allied health notes Allied health notes reviewed: nursing - Labs CBC & Chem 7: 07/28/17 06:02 07/28/17 06:02 Labs: Abnormal Lab Results - Last 24 Hours (Table) 07/27/17 07/27/17 07/27/17 Range/Units 11:33 12:05 16:44 Carbon Dioxide (22-30) mmol/L BUN (7-17) mg/dL Glucose (74-99) mg/dL POC Glucose (mg/dL) 70 L 103 H 321 H (75-99) mg/dL 07/27/17 07/28/17 07/28/17 Range/Units 21:06 06:00 06:02 Carbon Dioxide 35 H (22-30) mmol/L BUN 22 H (7-17) mg/dL Glucose 55 L (74-99) mg/dL POC Glucose (mg/dL) 205 H 71 L (75-99) mg/dL Microbiology - Last 24 Hours (Table) 07/22/17 09:21 Blood Culture - Preliminary Blood No Growth after 120 hours - Imaging and Cardiology Carotid Dopplers reviewed. Assessment and Plan (1) Coronary artery disease Current Visit: Yes Status: Acute Code(s): I25.10 - ATHSCL HEART DISEASE OF [place] CORONARY ARTERY W/O ANG PCTRS SNOMED Code(s): 86307685 (2) Systolic heart failure Current Visit: Yes Status: Acute Code(s): I50.20 - UNSPECIFIED SYSTOLIC ( CONGESTIVE) HEART FAILURE SNOMED Code(s): 101902420 (3) Insulin dependent diabetes mellitus Current Visit: Yes Status: Acute Code(s): E11.9 - TYPE 2 DIABETES MELLITUS WITHOUT COMPLICATIONS; Z79.4 - ENGINE LATHE SET UP OPERATOR (CURRENT) USE OF INSULIN SNOMED Code( s): 40551258 (4) Morbid obesity Current Visit: Yes Status: Acute Code(s): E66.01 - MORBID (SEVERE) OBESITY DUE TO EXCESS CALORIES SNOMED Code(s): 966460125 (5) Hypertension Current Visit: Yes Status: Acute Code(s): I10 - ESSENTIAL (PRIMARY) HYPERTENSION SNOMED Code(s): 64406211 (6) Hyperlipidemia Current Visit: Yes Status: Acute Code(s): E78.5 - HYPERLIPIDEMIA, UNSPECIFIED SNOMED Code(s): 98871911 (7) Tobacco dependence in remission Current Visit: Yes Status: Acute Code(s): F17.201 - NICOTINE DEPENDENCE, UNSPECIFIED, IN REMISSION SNOMED Code(s): 304336793 Plan: 1. Continue aspirin, statin, beta harley, Lasix. 2. Will review full 2D echo from yesterday. 3. Continue heart failure management per cardiology services. 4. Medical management per primary care services. 5. Would recommend conservative treatment with optimal medication management, stenting if necessary by Dr. Pagan. Time with Patient: Greater than 30
--- NOTE | 2017-07-28 09:35 | ECHOF ---
Referral Reason:chf, old anterior wall DC MEASUREMENTS -------- HEIGHT: 162.6 cm WEIGHT: 111.1 kg BP: IVSd: 1.2 cm (0.6 - 1.1) LVIDd: 4.5 cm (3.9 - 5.3) LVPWd: 1.3 cm (0.6 - 1.1) IVSs: 1.8 cm LVIDs: 3.5 cm LVPWs: 1.4 cm Ao Diam: 2.4 cm (2.0 - 3.7) AV Cusp: 1.5 cm (1.5 - 2.6) LA Diam: 3.8 cm (2.7 - 3.8) MV EXCURSION: 10.412 mm (> 18.000) MV EF SLOPE: 64 mm/s (70 - 150) EPSS: 1.1 cm MV E Faustino: 1.15 m/s MV DecT: 290 ms MV A Faustino: 0.99 m/s MV E/A Ratio: 1.16 RAP: 5.00 mmHg RVSP: 8.09 mmHg FINDINGS -------- Sinus rhythm. This was a technically difficult study with suboptimal views. The left ventricular size is normal. There is mild concentric left ventricular hypertrophy. Overa ll left ventricular systolic function is moderately impaired with, an EF between 35 - 40 %. Mid ant erior LV wall motion is akinetic. Mid anteroseptal LV wall motion is akinetic. Apical anterior LV wall motion is akinetic. Apical septum LV wall motion is akinetic. The right ventricle is normal in size and function. The left atrium is normal in size. The right atrium is normal in size. 1.5mg of Definity was utilized for enhancement of images The aortic valve is trileaflet, and appears structurally normal. No aortic stenosis or regurgitation. Mild mitral regurgitation is present. Mild tricuspid regurgitation present. The right ventricular systolic pressure, as measured by Doppl er, is 8.09mmHg. There is no pulmonic regurgitation present. The aortic root size is normal. There is no pericardial effusion. CONCLUSIONS -------- 1. Sinus rhythm. 2. This was a technically difficult study with suboptimal views. 3. There is mild concentric left ventricular hypertrophy. 4. Overall left ventricular systolic function is moderately impaired with, an EF between 35 - 40 %. 5. Mid anterior LV wall motion is akinetic. 6. Mid anteroseptal LV wall motion is akinetic. 7. Apical anterior LV wall motion is akinetic. 8. Apical septum LV wall motion is akinetic. 9. The left atrium is normal in size. 10. 1.5mg of Definity was utilized for enhancement of images 11. The aortic valve is trileaflet, and appears structurally normal. No aortic stenosis or regurgitat ion. 12. Mild mitral regurgitation is present. 13. Mild tricuspid regurgitation present. 14. The right ventricular systolic pressure, as measured by Doppler, is 8.09mmHg. 15. There is no pulmonic regurgitation present. 16. The aortic root size is normal. 17. There is no pericardial effusion. TRADE FACILITATOR: Sofia Bravo RDCS
[2017-07-28] MEDS: ATORVASTATIN 40 MG TAB PO SCH (09:42)
[2017-07-28] MEDS: METOPROLOL TARTRATE 25 MG TAB PO SCH (09:42)
[2017-07-28] MEDS: ASPIRIN 325 MG TAB PO SCH (09:42)
[2017-07-28] MEDS: FUROSEMIDE 40 MG TAB PO SCH ×2 (09:42→15:17)
--- NOTE | 2017-07-28 10:44 | P.PN ---
Subjective Progress Note Date: 07/28/17 Principal diagnosis: Acute pulmonary edema This is a 61-year-old female with history of diabetes, hypertension, hyperlipidemia, morbid obesity, who presented to the hospital via ambulance with symptoms of severe shortness of breath. She denied any associated chest discomfort, no dizziness or lightheadedness. Patient was found to be in acute respiratory distress and what appeared to be a flash pulmonary edema. Chest x- ray revealed findings consistent with bilateral infiltrates and congestive heart failure. CTA of the chest was also performed on admission which was negative for pulmonary embolism. EKG on admission here revealed poor R-wave progression and Q waves present across the chest leads. It appears that the patient may have suffered an acute anterior lateral septal myocardial infarction in the past. Echocardiogram with Doppler study was performed which revealed severely impaired left ventricular systolic function with an ejection fraction around 25-30% with mid ventricular and apical hypokinesia, only the portions of the LV arlen where the base. She was initiated on IV Lasix, she diuresed well, she was seen and examined on the telemetry unit today. Up ambulating without any difficulty. Denies any shortness of breath, states that she's feeling significantly better. Patient was recommended to undergo a heart catheterization to rule out any severe underlying coronary artery disease. The risks and the benefits were explained to her in detail, she's willing to proceed. This will be performed tomorrow by Dr. Pagan. We'll discontinue her IV Lasix today and start her on oral diuretics. Blood pressure today 124/54 with a heart rate in the 60s to 70s. Repeat chest x-ray was performed yesterday which revealed chronic changes without any evidence for acute pulmonary disease. 07/28/2017 Patient underwent a cardiac catheterization yesterday which revealed severe triple-vessel coronary artery disease with impaired LV function estimated ejection fraction of 40-45%. We did obtain a surgical consultation, who felt that patient was not a good candidate to undergo surgery. The plan at this point would be to discharge the patient home on maximal medical therapy, patient will then be brought back to the hospital to undergo angioplasty and stenting of the RCA and possibly the diagonal as well. She will follow-up with Dr. Jackson in the office post discharge. The patient was seen and examined this morning, denies any chest pain , breathing has been stable. Objective - Vital Signs Vital signs: Vital Signs Temp 97.1 F L 07/28/17 08:00 Pulse 68 07/28/17 08:00 Resp 18 07/28/17 08:00 BP 113/55 07/28/17 08:00 Pulse Ox 93 L 07/28/17 08:00 Intake & Output 07/27/17 07/28/17 07/28/17 18:59 06:59 18:59 Intake Total 600 360 Balance 600 360 Weight 111.3 kg Intake: IV 200 Normal Saline 100 Oral 400 360 Other: Voiding Method Toilet Toilet # Voids 2 - Exam PHYSICAL EXAMINATION: HEENT: Head is atraumatic, normocephalic. Pupils equal, round. Neck is supple. There is no elevated jugular venous pressure. HEART EXAMINATION: Heart S1, S2 normal. No murmur or gallop heard. CHEST EXAMINATION: Lungs are clear with mild diminished air entry to the bases. ABDOMEN: Soft, nontender. Bowel sounds are heard. No organomegaly noted. EXTREMITIES: 2+ peripheral pulses with trace evidence of peripheral edema and no calf tenderness noted. Right Radial site clean and dry, good distal pulse. NEUROLOGIC patient is awake, alert and oriented -3. . - Labs CBC & Chem 7: 07/28/17 06:02 07/28/17 06:02 Labs: Abnormal Lab Results - Last 24 Hours (Table) 07/27/17 07/27/17 07/27/17 Range/Units 11:33 12:05 16:44 Carbon Dioxide (22-30) mmol/L BUN (7-17) mg/dL Glucose (74-99) mg/dL POC Glucose (mg/dL) 70 L 103 H 321 H (75-99) mg/dL 07/27/17 07/28/17 07/28/17 Range/Units 21:06 06:00 06:02 Carbon Dioxide 35 H (22-30) mmol/L BUN 22 H (7-17) mg/dL Glucose 55 L (74-99) mg/dL POC Glucose (mg/dL) 205 H 71 L (75-99) mg/dL Microbiology - Last 24 Hours (Table) 07/22/17 09:21 Blood Culture - Preliminary Blood No Growth after 120 hours Assessment and Plan Plan: Assessment and plan #1 acute pulmonary edema, patient overall diuresed well on IV Lasix, on PO diuretics. Currently maintaining good oxygen saturation today, in the 90s. #2 systolic congestive heart failure acute on chronic, echocardiogram with Doppler study revealed an ejection fraction of 25-30%. #3 diabetes #4 acute on chronic kidney disease #5 hyperlipidemia #6 status post cardiac catheterization which revealed severe triple-vessel coronary artery disease with impaired LV function, estimated ejection fraction 40-45% Plan From cardiology's perspective, we will add Plavix as well as a statin to her medication regime, maximizing her medical therapy. She may be able to be discharged home. We will make her a follow-up appointment to see Dr. Jackson in the office post discharge. She will then be scheduled to come back for an elective angioplasty and stenting of the RCA as well as the diagonal. This was all explained to the patient in detail. DNP note has been reviewed, I agree with a documented findings and plan of care. Patient was seen and examined.
[2017-07-28] MEDS ORDERED: CLOPIDOGREL 75 MG TAB PO SCH (10:45)
[2017-07-28] MEDS: LEVOFLOXACIN 500 MG TAB PO SCH (11:08)
--- NOTE | 2017-07-28 11:16 | P.PN ---
Subjective Progress Note Date: 07/28/17 07/22/2017 61-year-old female who presented to the emergency room on 07/22/2017 with a chief complaint of difficulty in breathing. The patient states she was getting ready for work this morning and was so short of breath she was unable to get ready this morning. The patient denied any other symptoms, but stated she was unable to breathe. The patient lives alone, so she called her friend to bring her to the emergency room for evaluation. Upon evaluation in the emergency room, she was noted to be tachycardic with a rate in the 130s. Her oxygen saturations were in the low 80s. She was placed on a BiPAP at 100% FiO2. A x-ray of the chest was completed which shows diffuse airspace disease. Her d-dimer was elevated upon admission at 1.44. A CT of the chest was completed which was negative for pulmonary embolism. An EKG was completed which shows sinus tachycardia with a rate in the 130s. It did show Q waves in leads V1 through V6. In the emergency room the patient received a dose of IV Lasix and also IV steroids. Her lactic acid on admission was 2.9. First troponin was negative. BNP was 561. White count was 9.8, hemoglobin 13.9, sodium 142, potassium 4.5. The patient has a history of diabetes mellitus, GERD, hypertension, osteoarthritis, hyperlipidemia, anxiety, and depression. She is a former smoker. The patient was admitted to the intensive care unit for close observation and monitoring under the care of Dr. Izaguirre. Consultations were placed to pulmonary, Dr. Antoine. The patient was seen and examined at the bedside by Dr. Izaguirre. She is currently wearing a BiPAP 100% FiO2. Recent ABGs show a pH of 7.33, CO2 of 60, pO2 of 72, and bicarb of 31. She states her breathing feels slightly improved since this morning. Her blood pressure is stable at the last reading of 137/ 72. She does remain slightly tachycardic with a rate between 100-110. Blood cultures were drawn and are pending. The patient states she has a cat at home and the patient has numerous scratches to her bilateral lower extremities. The patient was placed on a Lasix drip and insulin drip per pulmonary. An indwelling urinary catheter has been inserted. The patient has been placed on Zosyn and Levaquin. An echocardiogram was ordered and results are currently pending. 07/23/2017 (Note per Dr. Izaguirre) Is now off BiPAP and on nasal cannula oxygen. Her chest x-ray looks markedly improved. He is tolerating a regular diet at this time. She remains with a Pizano catheter and on insulin drip for her diabetes. cardiology feel she had flash pulmonary edema possibly from a recent myocardial infarction. 07/24/2017 (Note per Dr. Izaguirre) Feels a bit better. She is on 3 L of oxygen via nasal cannula. Her chest x- rays improved. She is diuresing nicely with a Lasix drip. Is currently at 5 mg an hour. Cardiology is started lisinopril and metoprolol twice a day. She does have a worsening GFR though, most likely from the diuresis. Pulmonology is going to stop the Solu-Medrol.. Cardiogram showed an ejection fraction of 30%. This was a study and they're concerned about possibly TAKOTSUBO SYNDROME. Off the insulin drip. She is currently on Lantus 20 and scale. Her sugars remain in the 300s. Complains of somewhat decreased appetite. She is also complaining of some heartburn after eating. last BM midnight. Pizano to gravity. 07/25/2017 Patient was seen and examined at the bedside. She has been moved out of the ICU to the selective care unit. Her Lasix drip has been discontinued. She is currently receiving Lasix 40 mg IV every 12 hours. She is on 3 L nasal cannula and maintaining an oxygen saturation greater than 92%. She denies any chest pain or pressure. She denies any shortness of breath. She does complain of some heartburn at times. She is tolerating a heart healthy consistent carbohydrate diet without complaint of nausea or vomiting. The patient is multiple scratches to her by lower extremities from her cat which seemed to be healing. Her white count this morning is 15.0 which is down from 16.0. Her creatinine has slightly improved and is down to 1.10 from 1.24. Her urinary catheter has been discontinued. Cardiology would like the patient to have a cardiac catheterization within the next few days to rule out underlying coronary artery disease. 07/26/2017 Patient examined at the bedside. She states she is feeling well this morning. She denies chest pain or pressure. Denies shortness of breath. She is on room air with oxygen saturations greater than 92%. She remains on IV lasix 40mg every 12 hours. Her blood sugar this morning was noted to be 61. Repeat was 77. Patient is off steroids. Creatinine continues to improve: today is 1.01 from 1.10. Potassium is 3.5. WBC has improved from 15 to 7.1. She is tolerating an oral diet without nausea or vomiting. States appetite is good. Patient has been up ambulating in the room and to the bathroom without difficulty. Cardiology is following and anticipate cardiac catherization when they feel it is appropriate. 07/27/2017 Patient examined at the bedside. Patient is scheduled for a cardiac catherization today. Patient states she is feeling anxious regarding procedure because she is afraid of what they may find. Her lasix has been transitioned to oral per cardiology. Patient denies chest pain or pressure. Denies shortness of breath. Remains on room air with oxygen saturations greater than 92%. Creatinine continues to improve daily. Creatinine today is 0.89. Yesterday 1.01. WBC is 6.4. She is afebrile. Her blood sugars remain elevated over 200. She is currently on sliding scale coverage and 30 units lantus at night. 07/28/2017 Patient underwent cardiac catherization yesterday with Dr. Pagan. She was found to have triple vessel disease. Cardiothoracic surgery was consulted for possible surgical revascularization, but was found not to a candidate for surgery. Carotid doppler was ordered which shows 25% stenosis in bilateral carotid arteries. Repeat echo is currently pending. Patient states she is feeling well this morning. Denies chest pain, pressure, or shortness of breath. Vital signs are stable. Her blood sugars are very labile. This morning it was low at 71, however two prior readings were 205 and 321. She remains on sliding scale coverage and 30 units of lantus at HS. Objective - Vital Signs Vital signs: Vital Signs Temp 98.2 F 07/28/17 04:00 Pulse 66 07/28/17 04:00 Resp 18 07/28/17 04:00 BP 143/62 07/28/17 04:00 Pulse Ox 95 07/28/17 04:00 Intake & Output 07/27/17 07/28/17 07/28/17 18:59 06:59 18:59 Intake Total 600 360 Balance 600 360 Weight 111.3 kg Intake: IV 200 Normal Saline 100 Oral 400 360 Other: Voiding Method Toilet # Voids 2 - Exam GENERAL: This is a obese 61-year-old female who appears in no acute distress at the time of examination. Pleasant and cooperative. HEENT: Head is atraumatic, normocephalic. Pupils are equal, round, and reactive to light. Sclerae anicteric. Conjunctivae are clear. Mucus membranes of the mouth are moist. Neck is supple. RESPIRATORY: Lungs clear throughout, diminished at the bases. Patient maintaining oxygen saturation greater than 92% on room air. No chest wall tenderness is noted on palpation or with deep breathing. CARDIOVASCULAR: Regular rate and rhythm. S1 and S2 noted. No systolic or diastolic murmur auscultated. No JVD noted. No S3 or S4 noted. GASTROINTESTINAL: No distention noted. Obese. Abdomen soft and round. Normal active bowel sounds auscultated x 4 quadrants. No pain or tenderness noted upon palpation. INTEGUMENTARY: Multiple cat scratches noted to bilateral lower extremities in the healing stage. No cyanosis. No jaundice. No rashes noted. No cellulitis noted. EXTREMITIES: 2+ peripheral pulses. No lower extremity bilateral edema. No calf tenderness noted. NEUROLOGIC: Cranial nerves II-XII intact. PSYCHIATRIC: Awake, alert, and oriented X 3. Appropriate affect. Intact judgement and insight. - Labs CBC & Chem 7: 07/28/17 06:02 07/28/17 06:02 Labs: Abnormal Lab Results - Last 24 Hours (Table) 07/27/17 07/27/17 07/27/17 Range/Units 11:33 12:05 16:44 Carbon Dioxide (22-30) mmol/L BUN (7-17) mg/dL Glucose (74-99) mg/dL POC Glucose (mg/dL) 70 L 103 H 321 H (75-99) mg/dL 07/27/17 07/28/17 07/28/17 Range/Units 21:06 06:00 06:02 Carbon Dioxide 35 H (22-30) mmol/L BUN 22 H (7-17) mg/dL Glucose 55 L (74-99) mg/dL POC Glucose (mg/dL) 205 H 71 L (75-99) mg/dL Microbiology - Last 24 Hours (Table) 07/22/17 09:21 Blood Culture - Preliminary Blood No Growth after 120 hours Assessment and Plan Plan: ASSESSMENT: Acute hypoxic respiratory failure, present on admission, secondary to acute pulmonary edema, improving Acute on chronic systolic congestive heart failure, echo shows EF between 25-30% EKG with Q waves in leads V1 through V6 with poor R-wave progression suggesting previous silent myocardial infarction, S/P cardiac catherization revealing triple vessel disease Diabetes mellitus, type II, hemoglobin A1c 6.4% Acute kidney injury, baseline 0.68, likely due to use of IV diuretics and AP inhibitor, improving Elevated d-dimer, CT of the chest negative for pulmonary embolus Gastroesophageal reflux disease History of tobacco abuse, in remission, patient quit smoking in 2004 Hypokalemia, secondary to diuresis, resolved Anxiety, unspecified Depression, unspecified Morbid obesity: BMI 42.6 PLAN: -Cardiology on consult. Appreciate recommendations and input -Await results of repeat echo -Pulmonary on consult. Appreciate recommendations and input -Continue antibiotics: Levaquin 500 mg by mouth daily -Continue to monitor capillary blood glucose -Continue insulin sliding scale coverage AC/HS and lantus at HS -Home meds as appropriate -Monitor labs -GI prophylaxis: Protonix 40 mg PO daily -DVT prophylaxis: Heparin 5000 units subcu every 8 hours -Discharge planning: patient to return home -Further recommendations pending patients clinical course -Possible DC home today if cleared by consultants Nurse practitioner note has been reviewed by physician. Signing provider agrees with the documented findings, assessment, and plan of care.
[2017-07-28 11:30] LABS: Glucose,Whole Blood 194 mg/dL (75-99)
[2017-07-28 11:31] VITALS: TEMP 97.6
--- NOTE | 2017-07-28 12:42 | P.PN ---
Subjective Progress Note Date: 07/28/17 Principal diagnosis: Acute hypoxic respiratory failure secondary to pulmonary edema secondary to LV dysfunction and systolic congestive heart failure. This is a morbidly obese 61-year-old female patient who lives independently at home. The patient has no immediate family members. Her parents of complications of diabetes mellitus and heart disease. She also has no siblings. There is a friend that came with this patient here to the emergency department. Apparently over the past few days the patient was progressively getting more short of breath. This morning she became significantly dyspneic. She reported that she was unable to breathe and perform activities of daily today life. For that reason she called EMS and she was brought into the hospital. She had limited cough. No significant sputum production. No fever chills or night sweats. No hemoptysis. No pleurisy. No angina. No chest pain. No palpitations. No calf tenderness. There is chronic lower extremity edema which has gotten slightly worse over the past few days. She is diabetic. EKG on arrival showed Q waves throughout the leads extending from V1 through V6 and the patient has poor R-wave progression. The chest x-ray showed diffuse bilateral pulmonary infiltrates and following that the patient a CAT scan of the chest which showed patchy diffuse groundglass opacification of the lungs bilaterally. There is also some more consolidation of the lung bases. Minimal mediastinal lymphadenopathy. No evidence of pulmonary embolism. No evidence of any pleural or pericardial effusion. The heart is mildly enlarged. The first set of cardiac enzyme was negative. The proBNP level is at 561. The rest of the blood work and advised are all within normal limits. The patient was placed on a BiPAP at a pressure of 12/6 cm of water with an FiO2 of 100%. The patient was also given a dose of Lasix 40 mg IV push. I this patient emergency department. The patient was tolerating the BiPAP and his saturation was above 90%. Nevertheless she was still short of breath even while in the BiPAP. She was unable to speak in full sentences. She was a bit uncomfortable and diaphoretic. She was alert and conscious and she was able to respond to questions appropriately. She denies having any previous pneumonias. No history of smoking. Most of asthma. Most of emphysema. No exposure to any organic or inorganic material. She has a cat at home. No other significant exposures or travel history. No sick contacts. No hemoptysis. No 70 connected tissue disease or vasculitis or lupus. A stat echocardiogram was done at the bedside and the patient was found to have a. LV function with significant anteroseptal and apical akinesis. The contractility was essentially in the mid ventricle and there was some ballooning of the LV and no significant valvular disruption was noted. Ejection fraction was estimated to be around 25-30%. The patient will be taken to the intensive care unit. I briefly discussed with her the possibility of being intubated and placed on a mechanical ventilator. She was a bit hesitant to this idea knowing that she has no other family members at least for now to make decisions for her if she is completely out under the effect of sedatives. A Pizano catheter will be inserted. On examination the patient is bronchus spastic and wheezy and she is crackling in the mid and lower lung hanna bilaterally. On 07/23/2017 the patient is being seen in follow-up. The patient is doing much better compared to yesterday. The patient with diuresis with IV Lasix at 5 mg an hour. Overall cardiac and pulmonary status improved considerably. The pulmonary edema is improving and the chest x-ray looks much better compared to yesterday. The patient was taken off the BiPAP and currently she is on oxygen 3 L/m nasal cannula and she is negative fluid balance approximately 3-4 L over the past 12 hours. The patient is maintaining her electrolytes with some borderline hypokalemia with a potassium level of 3.5. Urinalysis 29 and creatinine is at 1.0. Troponin peaked at 0.6. Influenza screen was negative. Blood cultures been negative. The patient will be taken off the Zosyn and be kept on Levaquin. Meanwhile, she was also seen by cardiology. The patient is on heparin drip. The patient on IV Solu-Medrol. On 07/24/2017 the patient is being seen in follow-up. She is on oxygen 3 L/m nasal cannula. Chest x-ray still showing pulmonary edema although improved. The patient is still on Lasix drip at 5 mg an hour. The patient is a negative fluid balance. The patient was also started on vishnu inhibitors and beta blockers. The patient is on a combination of Zestril 2.5 mg and metoprolol 12.5 mg by mouth twice a day. The patient is producing urine output. She has suffered an acute kidney injury with a creatinine is up to 1.2. She may be having underlying cardiorenal syndrome with poor cardiac output and diuresis also contributed to her acute kidney injury. The patient is still on IV Levaquin. The patient on IV Solu-Medrol. Blood sugars are elevated and this is essentially steroid-induced hyperglycemia. On examination she has no active bronchospasm wheezing and I think is very reasonable to discontinue the IV Solu Medrol for today. This will also help with a blood sugar control. The patient is currently off BiPAP. She on 3 L/m nasal cannula. No fever. No chills. No sputum production. No altered mentation. No chest pain. She remains on IV heparin and cardiology is on the case. Echocardiac Toan was done and showed ejection fraction of 25%. The patient had poor windows and valves cannot be accurately assessed. There was a concern for Takasubo syndrome. Patient was reevaluated today on 07/25/2017, remains on oxygen, feeling much better clinically, less shortness of breath, no cough no wheezing, no chest pain. Remains in negative fluid balance, patient is off the Lasix drip. Remains on vishnu inhibitors and beta blockers, patient is feeling significantly improved compared to how she felt upon admission. Cardiac workup is still pending, patient may require cardiac catheterization. Renal functioning is improved, BUN today is 51, creatinine is 1.1. remains on multiple cardiac meds , she is off Solu-Medrol, off BiPAP, remains on oxygen, Reevaluated today on 07/28/2017, patient is doing well, asymptomatic, her cardiac catheterization report was noted, patient was seen by surgery and felt to be a poor candidate for CABG. Hence the plan would be to consider stenting and medical therapy in the near future. Her cardiac cath revealed severe triple -vessel coronary artery disease with impaired LV function patient to be scheduled to be discharged and eventually to undergo angioplasty and stenting of the RCA and possibly diagonal as well by Dr. Jackosn. Patient is relatively asymptomatic at this point. Objective - Vital Signs Vital signs: Vital Signs Temp 97.6 F 07/28/17 11:31 Pulse 67 07/28/17 11:32 Resp 18 07/28/17 11:32 BP 127/62 07/28/17 11:31 Pulse Ox 98 07/28/17 11:31 Intake & Output 11/05/0507/28/17 07/28/17 18:59 06:59 18:59 Intake Total 600 360 Balance 600 360 Weight 111.3 kg Intake: IV 200 Normal Saline 100 Oral 400 360 Other: Voiding Method Toilet Toilet # Voids 2 - Exam Physical Exam: Revealed a 62-year-old female, obese, in no form of respiratory distress. HEENT:[Neck is supple.] [No neck masses.] [No thyromegaly.] [No JVD.] Chest: [Clear throughout, no crackles, no rhonchi, no wheezes.] Cardiac Exam: [Normal S1 and S2, no S3 gallop, no murmur.] Abdomen: [Soft, nontender, no megaly, no rebound, no guarding, normal bowel sounds.] Extremities: [No clubbing, trace bipedal edema, no cyanosis.] Neurological Exam: [No focal neurologic deficit.] Psychiatric: Normal mood and affect, normal mental status examination. Lymphatics: No lymphadenopathy. Musculoskeletal: Relatively unremarkable, no weakness, range of motion is full. - Labs CBC & Chem 7: 07/28/17 06:02 07/28/17 06:02 Labs: Abnormal Lab Results - Last 24 Hours (Table) 07/27/17 07/27/17 07/28/17 Range/Units 16:44 21:06 06:00 Carbon Dioxide (22-30) mmol/L BUN (7-17) mg/dL Glucose (74-99) mg/dL POC Glucose (mg/dL) 321 H 205 H 71 L (75-99) mg/dL 07/28/17 07/28/17 Range/Units 06:02 11:28 Carbon Dioxide 35 H (22-30) mmol/L BUN 22 H (7-17) mg/dL Glucose 55 L (74-99) mg/dL POC Glucose (mg/dL) 194 H (75-99) mg/dL Microbiology - Last 24 Hours (Table) 07/22/17 09:21 Blood Culture - Final Blood No Growth after 144 hours Assessment and Plan Plan: 1 acute hypoxic respiratory failure due to acute pulmonary edema, resolved 2 acute BiPAP dependent respiratory failure, recovered, and the patient is currently on oxygen at 3 L/m nasal cannula 3 CHF with impaired LV function, awaiting final report on echocardiogram 4 diffuse Q waves extending V1 through V6 with poor R-wave progression suggestive of previous silent myocardial infarction setting of diabetes mellitus , with possibility of an acute non-ST elevation myocardial infarction with positive troponins, currently on IV heparin. The patient is also on oral aspirin. 5 diabetes mellitus, with a component of steroid-induced hyperglycemia. 6 obesity 7 acute kidney injury with a creatinine started a baseline of 0.68 and is currently up to 1.24. This is probably cardiorenal effect knowing that the patient is poor LV function. She is also on a combination of diuretics and vishnu inhibitors. We'll monitor the renal function. Ultrasound the kidneys will be needed. 8 anxiety/depression 9 triple-vessel coronary artery disease as noted in the cardiac catheterization. Patient will have close follow-up with cardiology and possible stenting in the near future would be considered. Recommendation: Overall the patient is feeling much better, responded well to diuretics, cleared for discharge planning from [facility] as long as the patient is cleared by cardiology, will follow the patient on when necessary basis. Time with Patient: Less than 30
--- NOTE | 2017-07-28 13:35 | P.DS ---
Providers Date of admission: 07/22/17 11:29 Expected date of discharge: 07/28/17 Attending physician: Clovis Izaguirre Consults: 07/22/17 11:29 Consult Physician Urgent Consulting Provider: Franca Antoine Consult Reason/Comments: dyspnea, diffuse airspace disease Do you want consulting provider notified?: Yes 07/22/17 12:52 Consult Physician Routine Consulting Provider: Rafael Pagan Consult Reason/Comments: chf Do you want consulting provider notified?: Yes Primary care physician: Clovis Izaguirre [facility] Course: 61-year-old female who presented to the emergency room on 07/22/2017 with a chief complaint of difficulty in breathing. The patient states she was getting ready for work this morning and was so short of breath she was unable to get ready this morning. The patient denied any other symptoms, but stated she was unable to breathe. The patient lives alone, so she called her friend to bring her to the emergency room for evaluation. Upon evaluation in the emergency room, she was noted to be tachycardic with a rate in the 130s. Her oxygen saturations were in the low 80s. She was placed on a BiPAP at 100% FiO2. A x-ray of the chest was completed which shows diffuse airspace disease. Her d-dimer was elevated upon admission at 1.44. A CT of the chest was completed which was negative for pulmonary embolism. An EKG was completed which shows sinus tachycardia with a rate in the 130s. It did show Q waves in leads V1 through V6. In the emergency room the patient received a dose of IV Lasix and also IV steroids. Her lactic acid on admission was 2.9. First troponin was negative. BNP was 561. White count was 9.8, hemoglobin 13.9, sodium 142, potassium 4.5. The patient has a history of diabetes mellitus, GERD, hypertension, osteoarthritis, hyperlipidemia, anxiety, and depression. She is a former smoker. The patient was admitted to the intensive care unit for close observation and monitoring under the care of Dr. Izaguirre. Consultations were placed to pulmonary, Dr. Antoine. The patient was placed on a bipap for respiratory distress and was started on a lasix drip. She has since been transitioned to PO. Her respiratory status improved over the next few days in the hospital. Her creatinine increased slightly during admission but has since returned to normal. She underwent cardiac catherization on 07/27/[address] Pagan which showed severe triple vessel disease. Cardiothoracic surgery was consulted for possible surgical revascularization, but was found not to a candidate for surgery. Carotid doppler was ordered which shows 25% stenosis in bilateral carotid arteries. The patient has been cleared for discharge per cardiology and will be brought back to the hospital to undergo angioplasty and stenting of the RCA and the diagonal. She is to follow up with Dr. Jackson in office. The patient was deemed stable for discharge per Dr Nolasco. She is to follow up in the office after discharge within 1 week. DISCHARGE DIAGNOSIS: Acute hypoxic respiratory failure, present on admission, secondary to acute pulmonary edema, resolved at time of discharge Acute on chronic systolic congestive heart failure, echo shows EF between 25-30% EKG with Q waves in leads V1 through V6 with poor R-wave progression suggesting previous silent myocardial infarction, S/P cardiac catherization revealing triple vessel disease Diabetes mellitus, type II, hemoglobin A1c 6.4% Acute kidney injury, baseline 0.68, likely due to use of IV diuretics and AP inhibitor, resolved at discharge Elevated d-dimer, CT of the chest negative for pulmonary embolus Gastroesophageal reflux disease History of tobacco abuse, in remission, patient quit smoking in 2004 Hypokalemia, secondary to diuresis, resolved Anxiety, unspecified Depression, unspecified Morbid obesity: BMI 42.6 Nurse practitioner note has been reviewed by physician. Signing provider agrees with the documented findings, assessment, and plan of care. Patient Condition at Discharge: Stable Plan - Discharge Summary Discharge Rx Participant: Yes New Discharge Prescriptions: New Aspirin 325 mg PO DAILY #30 tab Clopidogrel [Plavix] 75 mg PO DAILY #30 tab Furosemide [Lasix] 40 mg PO BID@0900,1600 #60 tab Metoprolol Tartrate [Lopressor] 25 mg PO BID #60 tab Nitroglycerin Sl Tabs [Nitrostat] 0.4 mg SUBLINGUAL Q5M PRN #25 tab PRN Reason: Chest Pain Atorvastatin [Lipitor] 80 mg PO DAILY #30 tab Levofloxacin [Levaquin] 500 mg PO Q24H #7 tab Continue Meloxicam 7.5 mg PO BID Escitalopram [Lexapro] 10 mg PO HS Lisinopril [Zestril] 5 mg PO HS Insulin NPH Hum/Reg Insulin Hm [NovoLIN 70-30 100 UNIT/ML VIAL] 15 unit SQ AC -SUPPER Insulin NPH Hum/Reg Insulin Hm [NovoLIN 70-30 100 UNIT/ML VIAL] 20 unit SQ AC -BRKFST Discharge Medication List Escitalopram [Lexapro] 10 mg PO HS 07/22/17 [History] Insulin NPH Hum/Reg Insulin Hm [NovoLIN 70-30 100 UNIT/ML VIAL] 15 unit SQ AC- SUPPER 07/22/17 [History] Insulin NPH Hum/Reg Insulin Hm [NovoLIN 70-30 100 UNIT/ML VIAL] 20 unit SQ AC- BRKFST 07/22/17 [History] Lisinopril [Zestril] 5 mg PO HS 07/22/17 [History] Meloxicam 7.5 mg PO BID 07/22/17 [History] Aspirin 325 mg PO DAILY #30 tab 07/28/17 [Rx] Atorvastatin [Lipitor] 80 mg PO DAILY #30 tab 07/28/17 [Rx] Clopidogrel [Plavix] 75 mg PO DAILY #30 tab 07/28/17 [Rx] Furosemide [Lasix] 40 mg PO BID@0900,1600 #60 tab 07/28/17 [Rx] Levofloxacin [Levaquin] 500 mg PO Q24H #7 tab 07/28/17 [Rx] Metoprolol Tartrate [Lopressor] 25 mg PO BID #60 tab 07/28/17 [Rx] Nitroglycerin Sl Tabs [Nitrostat] 0.4 mg SUBLINGUAL Q5M PRN #25 tab 07/28/17 [Rx ] Follow up Appointment(s)/Referral(s): Clovis Izaguirre MD [Primary Care Provider] - 1-2 days Rafael Pagan MD [STAFF PHYSICIAN] - 1 Week () Activity/Diet/Wound Care/Special Instructions: Patient to follow up with Dr. Pagan in the office and will need to return to the hospital for scheduled cardiac catherization with stent placement to the RCA and diagonal Discharge Disposition: HOME SELF-CARE
[2017-07-28 13:42] VITALS: BMI 42.1
[2017-07-28 15:20] VITALS: BP 116/56; PULSE 65
[2017-07-29] MEDS ORDERED: LISINOPRIL 5 MG TAB PO SCH (09:00)
[2017-07-29] MEDS ORDERED: ATORVASTATIN 80 MG TAB PO SCH (09:00)
== END 2017-07-28 15:42 | disposition home or self-care (01) | DRG 182 ==
LOC: EC 09:02 → 6ICU 11:29 → 6SEL 07-25 09:33
PROVIDERS: ADMIT Family Medicine; ATTEND Family Medicine
PROC: 4A133B1 Monitoring of Arterial Pressure, Peripheral, Percutaneous Approach (ICD-10-PCS; principal; 2017-07-22)
PROC: 4A133J1 Monitoring of Arterial Pulse, Peripheral, Percutaneous Approach (ICD-10-PCS; principal; 2017-07-22)
PROC: 03HY32Z Insertion of Monitoring Device into Upper Artery, Percutaneous Approach (ICD-10-PCS; principal; 2017-07-22)
PROC: B2111ZZ Fluoroscopy of Multiple Coronary Arteries using Low Osmolar Contrast (ICD-10-PCS; 2017-07-28)
PROC: B2151ZZ Fluoroscopy of Left Heart using Low Osmolar Contrast (ICD-10-PCS; 2017-07-28)
PROC: 4A023N7 Measurement of Cardiac Sampling and Pressure, Left Heart, Percutaneous Approach (ICD-10-PCS; 2017-07-28)
DX: I13.0 Hypertensive heart and chronic kidney disease with heart failure and stage 1 through stage 4 chronic kidney disease, or unspecified chronic kidney disease (principal); I21.4 Non-ST elevation (NSTEMI) myocardial infarction; J96.01 Acute respiratory failure with hypoxia; E11.22 Type 2 diabetes mellitus with diabetic chronic kidney disease; E87.6 Hypokalemia; I50.23 Acute on chronic systolic (congestive) heart failure; E11.65 Type 2 diabetes mellitus with hyperglycemia; E66.01 Morbid (severe) obesity due to excess calories; E78.5 Hyperlipidemia, unspecified; F32.9 Major depressive disorder, single episode, unspecified; F41.9 Anxiety disorder, unspecified; I25.10 Atherosclerotic heart disease of native coronary artery without angina pectoris; J45.909 Unspecified asthma, uncomplicated; K21.9 Gastro-esophageal reflux disease without esophagitis; M17.0 Bilateral primary osteoarthritis of knee; N17.9 Acute kidney failure, unspecified; N18.9 Chronic kidney disease, unspecified; R79.1 Abnormal coagulation profile; T38.0X5A Adverse effect of glucocorticoids and synthetic analogues, initial encounter; Z79.4 Long term (current) use of insulin; Z79.82 Long term (current) use of aspirin; Z79.899 Other long term (current) drug therapy; Z82.3 Family history of stroke; Z82.49 Family history of ischemic heart disease and other diseases of the circulatory system; Z83.3 Family history of diabetes mellitus; Z87.891 Personal history of nicotine dependence
CPT/HCPCS: 36415; 36600; 71010; 71275; 80048; 80053; 82550; 82553; 82805; 83036; 83605; 83735; 83880; 84100; 84132; 84484; 85025; 85379; 85610; 85652; 85730; 86140; 87040; 87449; 87502; 93005; 93306; 93308; 93458; 93880; 94640; 94660; 96365; 96375; 99291

== ENCOUNTER 2018-03-23 15:48 | Emergency (ER) | payer OTHER ==
[2018-03-23 16:55] VITALS: BP 145/74; PULSE 75; RESP 20; TEMP 98.3
--- NOTE | 2018-03-23 17:20 | XR ---
EXAMINATION TYPE: XR knee complete RT DATE OF EXAM: 03/23/2018 COMPARISON: NONE HISTORY: Knee pain TECHNIQUE: 3 views FINDINGS: There is moderate narrowing of the medial joint space. There is spurring of femoral and tib ial condyles. I see no fracture nor dislocation. There is spurring on the patella. IMPRESSION: Moderately severe osteoarthritis. No fracture seen.
--- NOTE | 2018-03-23 19:11 | ED ---
Fall HPI - General Chief Complaint: Fall Stated Complaint: Fall/Knee Injury Time Seen by Provider: 03/23/18 18:42 Source: patient Mode of arrival: wheelchair - History of Present Illness Initial Comments: This is 62-year-old female past couple history of diabetes, hypertension, previous AR, bilateral osteoarthritis of the knees who presents today for chief complaint of fall. She states that she is leaving [employer] at around 2: 30 PM when her right foot caught the wheel shopping cart, and she fell onto her right knee onto the cement she denies hitting her head or loss of consciousness. Patient was unable to get up due to the pain in the right knee, she was helped up by a bystander. Pt denies pain in her wrists/elbows or shoulder, dislocating her knee posteriorly, chest pain/dizziness/palpitations/ SOB prior to the fall. Patient denies any recent fever, chills, shortness of breath, chest pain, back pain, abdominal pain, nausea or vomiting, numbness or tingling, dysuria or hematuria, constipation or diarrhea, headaches or visual changes, or any other complaints. - Related Data Home Medications Medication Instructions Recorded Confirmed Escitalopram [Lexapro] 10 mg PO HS 07/22/17 07/22/17 Insulin NPH Hum/Reg Insulin Hm 15 unit SQ AC-SUPPER 07/22/17 07/22/17 [NovoLIN 70-30 100 UNIT/ML VIAL] Insulin NPH Hum/Reg Insulin Hm 20 unit SQ AC-BRKFST 07/22/17 07/22/17 [NovoLIN 70-30 100 UNIT/ML VIAL] Lisinopril [Zestril] 5 mg PO HS 07/22/17 07/22/17 Meloxicam 7.5 mg PO BID 07/22/17 07/22/17 Previous Rx's Medication Instructions Recorded Aspirin 325 mg PO DAILY #30 tab 07/28/17 Atorvastatin [Lipitor] 80 mg PO DAILY #30 tab 07/28/17 Clopidogrel [Plavix] 75 mg PO DAILY #30 tab 07/28/17 Furosemide [Lasix] 40 mg PO BID@0900,1600 #60 tab 07/28/17 Levofloxacin [Levaquin] 500 mg PO Q24H #7 tab 07/28/17 Metoprolol Tartrate [Lopressor] 25 mg PO BID #60 tab 07/28/17 Nitroglycerin Sl Tabs [Nitrostat] 0.4 mg SUBLINGUAL Q5M PRN #25 tab 07/28/17 Ibuprofen [Motrin] 800 mg PO Q6H PRN 5 Days #20 tab 03/23/18 Allergies Allergy/AdvReac Type Severity Reaction Status Date / Time No Known Allergies Allergy Verified 03/23/18 16:55 Review of Systems ROS Statement: Those systems with pertinent positive or pertinent negative responses have been documented in the HPI. ROS Other: All systems not noted in ROS Statement are negative. Constitutional: Denies: fever, chills Eyes: Denies: vision change ENT: Denies: throat pain Respiratory: Denies: cough, dyspnea Cardiovascular: Denies: chest pain, palpitations Endocrine: Denies: fatigue Gastrointestinal: Denies: abdominal pain, nausea, vomiting, diarrhea, constipation Genitourinary: Denies: urgency, dysuria, frequency Musculoskeletal: Reports: arthralgia. Denies: back pain, joint swelling Neurological: Denies: headache, weakness, numbness, paresthesias, confusion Past Medical History Past Medical History: Diabetes Mellitus, GERD/Reflux, Hyperlipidemia, Hypertension, Osteoarthritis (OA) Additional Past Medical History / Comment(s): Bronchitis, current cat scratches bilateral legs, arthritis bilateral knees. History of Any Multi-Drug Resistant Organisms: None Reported Past Surgical History: Tonsillectomy Additional Past Surgical History / Comment(s): D&C x 2 Past Anesthesia/Blood Transfusion Reactions: No Reported Reaction Past Psychological History: Anxiety, Depression Smoking Status: Former smoker Past Alcohol Use History: None Reported Past Drug Use History: None Reported - Past Family History Father Family Medical History: Cancer Additional Family Medical History / Comment(s): Father of lung and prostate cancer at the age of 71 or 72 yrs. Mother Family Medical History: Coronary Artery Disease (CAD), CVA/TIA Additional Family Medical History / Comment(s): Mother of a CVA at the age of 87yrs. General Exam - General Exam Comments Initial Comments: General: The patient is awake and alert, in no distress, and does not appear acutely ill. Eye: Pupils are equal, round and reactive to light, extra-ocular movements are intact. No nystagmus. There is normal conjunctiva bilaterally. No signs of icterus. Ears, nose, mouth and throat: There are moist mucous membranes and no oral lesions. Neck: The neck is supple, there is no tenderness or JVD. Cardiovascular: There is a regular rate and rhythm. No murmur, rub or gallop is appreciated. Respiratory: Lungs are clear to auscultation, respirations are non-labored, breath sounds are equal. No wheezes, stridor, rales, or rhonchi.] Musculoskeletal: Normal ROM, no tenderness. Strength 5/5 of the UE and LE b/ l. Patient is able to extend and flex the right and left knee. She complains of pain in the right knee with ROM. There is diffuse tenderness to palpation of the right knee, but no evidence of edema, ecchymosis, abrasions, palpable defects or step off. Sensation intact and equal of the lower extremities. There are numerous scabs on the lower extremities b/l (patient states that these are from her cats and because she picks her skin) DP and radial pulses equal bilaterally 2+. Neurological: A&O x 3. CN II-XII intact, There are no obvious motor or sensory deficits. Coordination appears grossly intact. Speech is normal. Skin: Skin is warm and dry and no rashes or lesions are noted. Psychiatric: Cooperative, appropriate mood & affect, normal judgment. Limitations: no limitations Course Vital Signs 03/23/18 16:53 Temperature 98.3 F Pulse Rate 75 Respiratory 20 Rate Blood Pressure 145/74 O2 Sat by Pulse 99 Oximetry Medical Decision Making - Medical Decision Making X-rays the right knee were obtained in triage, there is no evidence of acute fracture or dislocation. There is evidence of advanced osteoarthritis. I was able to get the patient to stand for physical examination putting pressure on the right knee. Physical examination of the right knee she is neurovascularly intact, there is no palpable defect or step-off, patient is able to extend and flex the knee has full range of motion of the lower extremities bilaterally. Full sensation of the LE b/l. Patient was given 1 IM injection of 30 mg of Toradol. She states that this helped the right knee pain. In addition patient states that she has a walker at home that she was using previously because she had baseline right knee pain and she states that she will use this upon returning home. Patient was discharged with prescription for 800 mg of ibuprofen for pain management as needed and follow up with her primary care physician in one to 2 days. Case was discussed in detail with who feels that the seventh patient is stable for discharge. Patient agrees with plan. Disposition Clinical Impression: Right knee pain, Osteoarthritis of right knee Disposition: HOME SELF-CARE Condition: Good Instructions: Osteoarthritis (ED), Fall Prevention for Older Adults (ED), Knee Pain (ED) Additional Instructions: Please use walker for ambulation. Please use medication as discussed. Please follow-up with family doctor in the next 2 days of symptoms have not improved. Please return to emergency room if the symptoms increase or worsen or for any other concerns. Prescriptions: Ibuprofen [Motrin] 800 mg PO Q6H PRN 5 Days #20 tab PRN Reason: Pain Is patient prescribed a controlled substance at d/c from ED?: No Referrals: Clovis Izaguirre MD [Primary Care Provider] - 1-2 days Time of Disposition: 19:28
[2018-03-23] MEDS ORDERED: KETOROLAC 30 MG/ML 1 ML VIAL IM STA (19:22)
== END 2018-03-23 20:05 | disposition home or self-care (01) ==
LOC: EC 15:48
DX: M17.0 Bilateral primary osteoarthritis of knee (principal); E11.9 Type 2 diabetes mellitus without complications; I10 Essential (primary) hypertension; I25.2 Old myocardial infarction; F41.9 Anxiety disorder, unspecified; F32.9 Major depressive disorder, single episode, unspecified; Z87.891 Personal history of nicotine dependence; Z79.1 Long term (current) use of non-steroidal anti-inflammatories (NSAID); Z79.4 Long term (current) use of insulin; Z79.899 Other long term (current) drug therapy; W01.0XXA Fall on same level from slipping, tripping and stumbling without subsequent striking against object, initial encounter; Y92.89 Other specified places as the place of occurrence of the external cause
CPT/HCPCS: 73562; 99283; 96372; J1885

== ENCOUNTER 2018-04-04 10:21 | Emergency (ER) | payer OTHER ==
[2018-04-04 10:51] VITALS: TEMP 98.4
[2018-04-04] MEDS ORDERED: FUROSEMIDE 10 MG/ML 4 ML VIAL IV STA (11:47)
--- NOTE | 2018-04-04 12:08 | ED ---
General Adult HPI - General Chief complaint: Recheck/Abnormal Lab/Rx Stated complaint: fluid retention Time Seen by Provider: 04/04/18 11:35 Source: patient, RN notes reviewed Mode of arrival: wheelchair Limitations: no limitations - History of Present Illness Initial comments: This a 62-year-old female sent emergency Department chief complaint of bilateral leg swelling. Patient states has progressively gotten worse. Patient states that she stopped taking her Lasix secondary to a knee injury. She states that she had walked too much and taking her Lasix and knee bothered her. Patient denies any orthopnea, chest pain or shortness of breath. She did take a recent single dose of Lasix but states that she was concerned as her legs are more swollen. Denies any open lesions or sores she does state that she has some healing wounds on her legs. Patient denies any fever, chills, nausea vomiting diarrhea constipation. - Related Data Home Medications Medication Instructions Recorded Confirmed Escitalopram [Lexapro] 10 mg PO HS 07/22/17 04/04/18 Insulin NPH Hum/Reg Insulin Hm 15 unit SQ AC-SUPPER 07/22/17 04/04/18 [NovoLIN 70-30 100 UNIT/ML VIAL] Insulin NPH Hum/Reg Insulin Hm 20 unit SQ AC-BRKFST 07/22/17 04/04/18 [NovoLIN 70-30 100 UNIT/ML VIAL] Lisinopril [Zestril] 5 mg PO HS 07/22/17 04/04/18 Aspirin 325 mg PO DAILY 04/04/18 04/04/18 Aspirin EC [Ecotrin Low Dose] 81 mg PO DAILY 04/04/18 04/04/18 Lansoprazole 30 mg PO DAILY 04/04/18 04/04/18 Metoprolol Tartrate [Lopressor] 25 mg PO DAILY 04/04/18 04/04/18 Pantoprazole [Protonix] 40 mg PO DAILY 04/04/18 04/04/18 Previous Rx's Medication Instructions Recorded Atorvastatin [Lipitor] 80 mg PO DAILY #30 tab 07/28/17 Clopidogrel [Plavix] 75 mg PO DAILY #30 tab 07/28/17 Furosemide [Lasix] 40 mg PO BID@0900,1600 #60 tab 07/28/17 Nitroglycerin Sl Tabs [Nitrostat] 0.4 mg SUBLINGUAL Q5M PRN #25 tab 07/28/17 Allergies Allergy/AdvReac Type Severity Reaction Status Date / Time No Known Allergies Allergy Verified 04/04/18 12:42 Review of Systems ROS Statement: Those systems with pertinent positive or pertinent negative responses have been documented in the HPI. ROS Other: All systems not noted in ROS Statement are negative. Past Medical History Past Medical History: Diabetes Mellitus, GERD/Reflux, Hyperlipidemia, Hypertension, Osteoarthritis (OA) Additional Past Medical History / Comment(s): Bronchitis, current cat scratches bilateral legs, arthritis bilateral knees. History of Any Multi-Drug Resistant Organisms: None Reported Past Surgical History: Tonsillectomy Additional Past Surgical History / Comment(s): D&C x 2 Past Anesthesia/Blood Transfusion Reactions: No Reported Reaction Past Psychological History: Anxiety, Depression Smoking Status: Former smoker Past Alcohol Use History: None Reported Past Drug Use History: None Reported - Past Family History Father Family Medical History: Cancer Additional Family Medical History / Comment(s): Father of lung and prostate cancer at the age of 71 or 72 yrs. Mother Family Medical History: Coronary Artery Disease (CAD), CVA/TIA Additional Family Medical History / Comment(s): Mother of a CVA at the age of 87yrs. General Exam Limitations: no limitations General appearance: alert, in no apparent distress Head exam: Present: atraumatic, normocephalic, normal inspection Respiratory exam: Present: normal lung sounds bilaterally. Absent: respiratory distress, wheezes, rales, rhonchi, stridor Cardiovascular Exam: Present: regular rate, normal rhythm, normal heart sounds. Absent: systolic murmur, diastolic murmur, rubs, gallop, clicks GI/Abdominal exam: Present: soft, normal bowel sounds. Absent: distended, tenderness, guarding, rebound, rigid Extremities exam: Present: pedal edema (Bilateral 2+, neurovascular intact there is old healing wounds noted) Back exam: Absent: CVA tenderness (R), CVA tenderness (L) Skin exam: Present: warm, dry Course Vital Signs 04/04/18 04/04/18 10:48 12:57 Temperature 98.4 F Pulse Rate 91 71 Respiratory 18 20 Rate Blood Pressure 170/79 177/76 O2 Sat by Pulse 97 100 Oximetry EKG Findings - EKG Comments: EKG Findings:: EKG performed at 12:54 normal sinus rhythm with a rate of 63 QRS 92 ND 182 QT/QTC 430/440 Medical Decision Making - Medical Decision Making 62-year-old female presented for bilateral lower extremity swelling. Patient does have known CHF and leg edema and states that she only takes Lasix though she stopped for 10 days ago because she had a knee injury. Patient has had no orthopnea no shortness of breath and no chest pain. Lab work was reviewed EKG and chest x-ray. She does have mild erythema though vitals are stable. She'll be given Lasix in emergency department IV and she will see Dr. Izaguirre tomorrow. She is advised to restart her Lasix at home and return for any worsening symptoms. - Lab Data Result diagrams: 04/04/18 12:01 04/04/18 12:01 Lab Results 04/04/18 04/04/18 04/04/18 Range/Units 12:01 12:01 12:01 WBC 7.3 (3.8-10.6) k/uL RBC 3.92 (3.80-5.40) m/uL Hgb 11.6 (11.4-16.0) gm/dL Hct 35.6 (34.0-46.0) % MCV 90.7 (80.0-100.0) fL MCH 29.5 (25.0-35.0) pg MCHC 32.5 (31.0-37.0) g/dL RDW 15.4 (11.5-15.5) % Plt Count 275 (150-450) k/uL Neutrophils % 74 % Lymphocytes % 14 % Monocytes % 5 % Eosinophils % 4 % Basophils % 1 % Neutrophils # 5.4 (1.3-7.7) k/uL Lymphocytes # 1.0 (1.0-4.8) k/uL Monocytes # 0.4 (0-1.0) k/uL Eosinophils # 0.3 (0-0.7) k/uL Basophils # 0.0 (0-0.2) k/uL Sodium 142 (137-145) mmol/L Potassium 5.0 (3.5-5.1) mmol/L Chloride 108 H (98-107) mmol/L Carbon Dioxide 28 (22-30) mmol/L Anion Gap 6 mmol/L BUN 25 H (7-17) mg/dL Creatinine 0.78 (0.52-1.04) mg/dL Est GFR (CKD-EPI)AfAm >90 (>60 ml/min/1.73 sqM) Est GFR (CKD-EPI)NonAf 83 (>60 ml/min/1.73 sqM) Glucose 197 H (74-99) mg/dL Calcium 8.8 (8.4-10.2) mg/dL Total Bilirubin 0.5 (0.2-1.3) mg/dL AST 106 H (14-36) U/L ALT 97 H (9-52) U/L Alkaline Phosphatase 244 H (38-126) U/L Troponin I (0.000-0.034) ng/mL NT-Pro-B Natriuret Pep 2000 pg/mL Total Protein 5.9 L (6.3-8.2) g/dL Albumin 3.4 L (3.5-5.0) g/dL 04/04/ Range/Units 12:01 WBC (3.8-10.6) k/uL RBC (3.80-5.40) m/uL Hgb (11.4-16.0) gm/dL Hct (34.0-46.0) % MCV (80.0-100.0) fL MCH (25.0-35.0) pg MCHC (31.0-37.0) g/dL RDW (11.5-15.5) % Plt Count (150-450) k/uL Neutrophils % % Lymphocytes % % Monocytes % % Eosinophils % % Basophils % % Neutrophils # (1.3-7.7) k/uL Lymphocytes # (1.0-4.8) k/uL Monocytes # (0-1.0) k/uL Eosinophils # (0-0.7) k/uL Basophils # (0-0.2) k/uL Sodium (137-145) mmol/L Potassium (3.5-5.1) mmol/L Chloride (98-107) mmol/L Carbon Dioxide (22-30) mmol/L Anion Gap mmol/L BUN (7-17) mg/dL Creatinine (0.52-1.04) mg/dL Est GFR (CKD-EPI)AfAm (>60 ml/min/1.73 sqM) Est GFR (CKD-EPI)NonAf (>60 ml/min/1.73 sqM) Glucose (74-99) mg/dL Calcium (8.4-10.2) mg/dL Total Bilirubin (0.2-1.3) mg/dL AST (14-36) U/L ALT (9-52) U/L Alkaline Phosphatase (38-126) U/L Troponin I 0.034 (0.000-0.034) ng/mL NT-Pro-B Natriuret Pep pg/mL Total Protein (6.3-8.2) g/dL Albumin (3.5-5.0) g/dL Disposition Clinical Impression: Leg edema, CHF (congestive heart failure) Disposition: HOME SELF-CARE Condition: Stable Instructions: Leg Edema (ED) Additional Instructions: Restarted your Lasix as directed.Please return to the Emergency Department if symptoms worsen or any other concerns. Is patient prescribed a controlled substance at d/c from ED?: No Referrals: Clovis Izaguirre MD [Primary Care Provider] - 1-2 days Time of Disposition: 13:07
[2018-04-04 12:17] LABS: Basophils % (A) 1 %; Eosinophils # (A) 0.3 k/uL (0-0.7); Eosinophils % (A) 4 %; HCT 35.6 % (34.0-46.0); HGB 11.6 gm/dL (11.4-16.0); Lymphocytes % (A) 14 %; MCH 29.5 pg (25.0-35.0); MCHC 32.5 g/dL (31.0-37.0); MCV 90.7 fL (80.0-100.0); Mean Platelet Volume 7.4; Monocytes # (A) 0.4 k/uL (0-1.0); Monocytes % (A) 5 %; Neutrophils # (A) 5.4 k/uL (1.3-7.7); Neutrophils % (A) 74 %; Platelet Count 275 k/uL (150-450); RBC 3.92 m/uL (3.80-5.40); RDW 15.4 % (11.5-15.5); WBC 7.3 k/uL (3.8-10.6)
--- NOTE | 2018-04-04 12:25 | XR ---
EXAMINATION TYPE: XR chest 2V DATE OF EXAM: 04/04/2018 COMPARISON: Prior chest 07/25/2017 HISTORY: Bilateral ankle swelling TECHNIQUE: Frontal and lateral views of the chest are obtained. FINDINGS: There is prominence of the central vascularity and interstitium. Heart is enlarged. No pne umothorax or pleural effusion. Thoracic aorta shows calcification. IMPRESSION: Correlate for pulmonary venous hypertension and interstitial edema.
[2018-04-04 12:26] LABS: ALT 97 U/L (9-52); AST 106 U/L (14-36); Albumin 3.4 g/dL (3.5-5.0); Alkaline Phosphatase 244 U/L (38-126); Anion Gap 6 mmol/L; Blood Urea Nitrogen 25 mg/dL (7-17); Calcium 8.8 mg/dL (8.4-10.2); Carbon Dioxide 28 mmol/L (22-30); Chloride 108 mmol/L (98-107); Glucose 197 mg/dL (74-99); Sodium 142 mmol/L (137-145); Total Bilirubin 0.5 mg/dL (0.2-1.3); Total Protein 5.9 g/dL (6.3-8.2)
[2018-04-04 12:59] VITALS: BP 177/76; PULSE 71; RESP 20
== END 2018-04-04 13:32 | disposition home or self-care (01) ==
LOC: EC 10:21
DX: I50.9 Heart failure, unspecified (principal); E11.9 Type 2 diabetes mellitus without complications; K21.9 Gastro-esophageal reflux disease without esophagitis; I10 Essential (primary) hypertension; F32.9 Major depressive disorder, single episode, unspecified; F41.9 Anxiety disorder, unspecified; Z87.891 Personal history of nicotine dependence; Z79.4 Long term (current) use of insulin; Z79.82 Long term (current) use of aspirin; Z79.899 Other long term (current) drug therapy
CPT/HCPCS: 36415; 93005; 83880; 80053; 84484; 85025; 71046; 99284; 96374; J1940

== ENCOUNTER → 2018-06-13 | Outpatient (CLI) | payer OTHER ==
[2018-06-13 14:24] LABS: HCT 35.6 % (34.0-46.0); HGB 11.2 gm/dL (11.4-16.0); Hypochromasia Slight; MCH 28.7 pg (25.0-35.0); MCHC 31.4 g/dL (31.0-37.0); MCV 91.4 fL (80.0-100.0); Mean Platelet Volume 6.9; Platelet Count 266 k/uL (150-450); RBC 3.89 m/uL (3.80-5.40); RDW 14.8 % (11.5-15.5); WBC 6.2 k/uL (3.8-10.6)
[2018-06-13 14:35] LABS: Potassium 5.4 mmol/L (3.5-5.1)
== END | disposition home or self-care (01) ==
LOC: LABPAT 13:11
PROVIDERS: ATTEND Internal Medicine Interventional Cardiology
DX: Z01.812 Encounter for preprocedural laboratory examination (principal); I25.10 Atherosclerotic heart disease of native coronary artery without angina pectoris; I10 Essential (primary) hypertension; E78.5 Hyperlipidemia, unspecified; I25.5 Ischemic cardiomyopathy
CPT/HCPCS: 36415; 80051; 82565; 84520; 85027

== ENCOUNTER 2018-06-19 06:04 | Day surgery (SDC) | payer OTHER ==
[2018-06-15 15:33] VITALS: BMI 43.0
[~2018-06-19 06:04] MED LIST: ALPRAZolam 0.25 MG TAB PO PRN; ASPIRIN 325 MG TAB PO ONE; SODIUM CHLORIDE 0.9% 1,000 ML in EMPTY BAG 1 BAG IV ONE
[2018-06-19 07:03] LABS: Calcium 9.2 mg/dL (8.4-10.2); Potassium 4.1 mmol/L (3.5-5.1)
[2018-06-19] MEDS ORDERED: LIDOCAINE 1% INJ 10MG/ML (20 ML MDV) ONE (07:14)
[2018-06-19] MEDS ORDERED: VERAPAMIL 2.5 MG/ML 2 ML AMP ONE (07:15)
[2018-06-19] MEDS ORDERED: ALPRAZolam 0.25 MG TAB PO ONE (07:22)
[2018-06-19] MEDS ORDERED: INSULIN ASPART 100 UNIT/ML 1 ML 10 ML VIAL SQ ONE ×2 (07:23→10:30)
[2018-06-19 07:34] VITALS: PULSE 62; RESP 20; TEMP 98.6
[2018-06-19] MEDS ORDERED: MIDAZOLAM 2 MG/2 ML VIAL ONE (07:49)
[2018-06-19] MEDS ORDERED: MIDAZOLAM 2 MG/2 ML VIAL IV ONE (07:50)
[2018-06-19] MEDS ORDERED: LIDOCAINE 1% INJ 10MG/ML (20 ML MDV) SQ ONE (07:50)
[2018-06-19] MEDS ORDERED: SODIUM CHLORIDE 0.9% 1,000 ML IV ONE (08:00)
[2018-06-19] MEDS ORDERED: IOPAMIDOL-370 50ML BTL INJ ONE (08:27)
[2018-06-19] MEDS ORDERED: IOPAMIDOL-370 125ML BTL INJ ONE (08:27)
[2018-06-19] MEDS ORDERED: RX INFO: IV CONTRAST WAS GIVEN 1 EACH MISC MISCELLANE PRN (08:33)
[2018-06-19] MEDS ORDERED: SODIUM CHLORIDE 0.9% 1,000 ML IV SCH (08:45)
[2018-06-19 08:48] LABS: Glucose,Whole Blood 358 mg/dL (75-99)
--- NOTE | 2018-06-19 08:58 | LTR ---
June 19, 2018 Re: Nesha Coffey Dear Dr. Izaguirre: Ms. Nesha Coffey underwent a heart catheterization today and that revealed severe triple-vessel coronary artery disease. I am going to consider a cardiothoracic surgeon to see her and evaluate her for coronary artery bypass grafting. If she turned to be a high risk for surgery, we will consider percutaneous coronary intervention. I want to thank you for allowing me to participate in her care and please do not hesitate to call if you have any question or concern. Sincerely, MD STEPHEN Tolbert / SHASHIN: [id number] /
--- NOTE | 2018-06-19 09:10 | CC ---
CARDIAC CATHETERIZATION REPORT DATE OF SERVICE: June 19, 2018 PERFORMING PHYSICIAN: Rafael Pagan MD. PROCEDURE PERFORMED: 1. Selective right and left coronary angiogram. 2. Left heart catheterization. 3. Left ventriculography. INDICATION: This is a pleasant 62-year-old female patient who is known to have coronary artery disease based on heart catheterization that was performed a year ago, in July of 2017, where it revealed severe triple-vessel coronary artery disease and at that point, the patient was referred for surgical revascularization and she turned to be a high-risk giving her body habitus as well as giving her anatomy, but at that point, her EF was severely impaired and was about 20% to 25%. I considered maximized medical treatment on her. Lately she has been experiencing shortness of breath with exertion associated with fatigue and tiredness and low energy. I did decide to pursue a heart catheterization at this point. The repeated echocardiogram revealed normalization in the left ventricular systolic function on maximized medical treatment. APPROACH: Right common femoral artery. COMPLICATION: None. LEVEL OF SEDATION: Moderate with a sedation length of 40 minutes. PROCEDURE DESCRIPTION: After obtaining an informed consent, the patient was brought to the cardiac sanitation laborer. The right common femoral artery was cannulated using micropuncture technique, the micropuncture wire passed easily then I placed a 6[place] sheath in the right common femoral artery. Before I placed a 6-[place] sheath, the previous stick was quite high and above the ligament and I only at that point placed a 4-[place] micropuncture sheath which was pulled back and achieved hemostasis before I re-stick the groin again. I did selective right and left coronary angiogram using Gabriel right catheter and JL4 catheters. Left heart catheterization was performed using 6-[place] pigtail catheter and then left ventriculography was performed also using 6[place] pigtail catheter. The procedure was completed without any complication. SELECTIVE CORONARY ANGIOGRAM: 1. The right coronary artery is calcified and the RCA is a large caliber vessel and it is a dominant vessel. The proximal RCA has mild disease only. The mid RCA has a long tubular lesion appeared to be in the range of 70%. The distal RCA just proximal to the bifurcation of PDA and PLV branches has a critical lesion appeared to be in the range of 90%. The PDA and PLV branches appeared to be angiographically normal. 2. The left main is calcified and seems to be angiographically normal. It bifurcates into left circumflex and left anterior descending artery. 3. The left circumflex is a moderate caliber vessel. It is a nondominant vessel. The proximal left circumflex appeared to have mild disease only and gives rise into a large OM branch which appeared to have mild disease only. The mid left circumflex has another lesion appeared to be in the range of 70%, but the circumflex at that point is a medium caliber vessel only. 4. The LAD: The proximal LAD appeared to be angiographically normal. The mid LAD gives rise into a large diagonal branch which has a lesion appeared to be in the range of 60% to 70%. The LAD after that diagonal has a tight lesion appeared to be in the range of 70%. There is another lesion distal to that lesion appeared to be in the range of 70% as well. The LAD itself is a medium caliber vessel only and is about 2 mm vessel only. HEMODYNAMICS: The left ventricular end-diastolic pressure was 20 mmHg and there was mild gradient was identified across the aortic valve. LEFT VENTRICULOGRAPHY: Left ventriculography was performed in the MCKEN[place] projection and using a power injection. Left ventricular systolic function seems to be mildly impaired with EF about 45% with apical hypokinesia. CONCLUSION: 1. Severe triple-vessel coronary artery disease. 2. Severe disease involving the mid right coronary artery. Critical disease involving the distal right coronary artery. 3. Severe disease involving the mid left circumflex, but the left circumflex is a medium caliber vessel only. 4. Severe disease involving the mid left anterior descending artery by the bifurcation of a large diagonal branch. 5. Elevated left ventricular end-diastolic pressure. The LVEDP was 20 mmHg. 6. Mildly impaired left ventricular function with ejection fraction around 45% with apical hypokinesia. POSTPROCEDURE MANAGEMENT: Giving the patient being diabetic, with mildly impaired LV function, and giving her anatomy especially the LAD diagonal bifurcation, I did recommend proceeding with coronary artery bypass grafting. I want to ask a surgeon to evaluate the patient. If the patient turned to be high risk for surgery, I will consider percutaneous revascularization of the RCA. MMODL / IJN: [id number] /
[2018-06-19 10:10] LABS: Glucose,Whole Blood 218 mg/dL (75-99)
[2018-06-19 12:04] LABS: Glucose,Whole Blood 134 mg/dL (75-99)
[2018-06-19 15:11] VITALS: BP 140/68
--- NOTE | 2018-06-19 15:50 | P.GSCN ---
<Sofia Aragon - Last Filed: 06/19/18 15:22> History of Present Illness Consult date: 06/19/18 Reason for Consult: Triple-vessel coronary artery disease, surgical recommendations. Requesting physician: Rafael Pagan History of present illness: This is a 62-year-old female patient he follows with Dr. Izaguirre on an outpatient basis. She is a previous medical history of triple-vessel coronary artery disease with previous myocardial infarction, insulin-dependent diabetes mellitus, hypertension, hyperlipidemia, GERD, previous tobacco dependence, and family history of coronary artery disease. She was hospitalized in July 2017 with increasing shortness of breath leading to respiratory failure necessitating BiPAP and diuresis. At that time she was ruled in for myocardial infarction. Once stabilized she was taken to the Drafting Layout Worker and was found to have triple-vessel disease with significant LV dysfunction. Dr. Owusu from cardiothoracic surgery was consulted for surgical recommendations. At that time she was felt to be high risk for surgery and the recommendation was for maximizing medical therapy with beta blockers and afterload reduction. She has been followed over the last year by Dr. Pagan and has had no chest pain but has had mild increase in exertional dyspnea. She requested a work release from Dr. Pagan to go back to work, he recommended a repeat cardiac catheterization which was completed today. This demonstrated approximately the same disease process as her previous heart catheterization with the exception of a worsening lesion in the RCA. LV gram was also completed demonstrating improvement in her ventricular function with EF 45-50%. Dr. Owusu was again consulted regarding recommendations for surgical revascularization. Review of Systems Review of systems was completed and was negative except as noted. - Constitutional Reports fatigue - Cardiovascular Reports dyspnea on exertion, Reports leg edema Past Medical History Past Medical History: Coronary Artery Disease (CAD), Heart Failure, Diabetes Mellitus, Eye Disorder, GERD/Reflux, Hearing Disorder / Deafness, Hyperlipidemia , Hypertension, Myocardial Infarction (MO), Osteoarthritis (OA), Pneumonia Additional Past Medical History / Comment(s): OCC Cat Scratches LEGS/ARMS. OA Bilateral Knees. OCC HEART "FLUTTER," PER PATIENT. DENIES CP. OCC DYSPNEA W/ ACTIVITY. EARLY CATARACTS. MILD VARICOSE VEINS. MILD EDEMA SARIKA FEET/ANKLES. OLD MO FOUND 07/2017, PULMONARY EDEMA, CHF. FELL 03/2018 AND INJURED KNEES, USING WALKER NOW. Last Myocardial Infarction Date:: UNKNOWN History of Any Multi-Drug Resistant Organisms: None Reported Past Surgical History: Heart Catheterization, Tonsillectomy Additional Past Surgical History / Comment(s): D&C x 2. C. CATH 07/2017. Past Anesthesia/Blood Transfusion Reactions: No Reported Reaction Smoking Status: Former smoker - Past Family History Father Family Medical History: Cancer Additional Family Medical History / Comment(s): Father of lung and prostate cancer at the age of 71 or 72 yrs. Mother Family Medical History: Coronary Artery Disease (CAD), CVA/TIA Additional Family Medical History / Comment(s): Mother of a CVA at the age of 87yrs. Medications and Allergies Home Medications Medication Instructions Recorded Confirmed Type Escitalopram [Lexapro] 10 mg PO HS 07/22/17 06/15/18 History Lisinopril [Zestril] 5 mg PO HS 07/22/17 06/15/18 History Clopidogrel [Plavix] 75 mg PO DAILY #30 tab 07/28/17 06/15/18 Rx Nitroglycerin Sl Tabs [Nitrostat] 0.4 mg SUBLINGUAL Q5M PRN #25 tab 07/28/17 Rx Aspirin 325 mg PO DAILY 04/04/18 06/15/18 History Metoprolol Tartrate [Lopressor] 25 mg PO BID 04/04/18 06/15/18 History Pantoprazole [Protonix] 40 mg PO DAILY 04/04/18 06/15/18 History Atorvastatin [Lipitor] 80 mg PO HS 06/15/18 06/15/18 History Furosemide [Lasix] 40 mg PO BID 06/15/18 06/15/18 History Ibuprofen [Motrin] 600 mg PO Q8HR PRN 06/15/18 06/15/18 History Insulin Aspart Protam & Aspart 15 unit SQ AC-SUPPER 06/15/18 06/15/18 History [NovoLOG MIX 70-30 Flexpen] Insulin Aspart Protam & Aspart 20 unit SQ AC-BRKFST 06/15/18 06/15/18 History [NovoLOG MIX 70-30 Flexpen] Allergies Allergy/AdvReac Type Severity Reaction Status Date / Time No Known Allergies Allergy Verified 06/15/18 14:40 Surgical - Exam Vital Signs Temp Pulse Resp BP Pulse Ox 98.6 F 62 20 163/67 92 L 06/19/18 07:31 06/19/18 07:31 06/19/18 07:31 06/19/18 07:31 06/19/18 07:31 - General well developed, well nourished, no distress, no pain, chronically ill, obese - Eyes PERRL, normal ocular movement - ENT no hearing loss, poor mcfp - Neck no masses, no bruits, trachea midline - Respiratory Lungs sounds diminished bilaterally. Respirations even, nonlabored. Currently on room air with oxygen saturation 100%. No chest wall deformities. - Cardiovascular S1, S2 present. Regular rate and rhythm, sinus rhythm on telemetry. Palpable peripheral pulses bilaterally. 2-3+ bilateral lower extremity edema present. No calf pain or tenderness noted. - Abdomen Abdomen: soft, non tender, bowel sounds - Genitourinary Deferred - Rectum Deferred - Integumentary Patient has multiple areas of excoriation to bilateral upper and lower extremities. - Neurologic normal coordination, normal sensation - Psychiatric oriented to time, oriented to person, oriented to place, speech is normal, memory intact Results - Labs 06/19/18 06:45 Abnormal Lab Results - Last 24 Hours (Table) 06/19/18 06/19/18 06/19/18 Range/Units 06:38 06:45 10:07 Chloride 97 L (98-107) mmol/L Carbon Dioxide 31 H (22-30) mmol/L BUN 28 H (7-17) mg/dL Glucose 359 H (74-99) mg/dL POC Glucose (mg/dL) 358 H 218 H (75-99) mg/dL 06/19/18 Range/Units 12:00 Chloride (98-107) mmol/L Carbon Dioxide (22-30) mmol/L BUN (7-17) mg/dL Glucose (74-99) mg/dL POC Glucose (mg/dL) 134 H (75-99) mg/dL Diabetes panel 06/19/18 Range/Units 06:45 Sodium 137 (137-145) mmol/L Potassium 4.1 (3.5-5.1) mmol/L Chloride 97 L (98-107) mmol/L Carbon Dioxide 31 H (22-30) mmol/L BUN 28 H (7-17) mg/dL Creatinine 0.86 (0.52-1.04) mg/dL Glucose 359 H (74-99) mg/dL Calcium 9.2 (8.4-10.2) mg/dL Calcium panel 06/19/18 Range/Units 06:45 Calcium 9.2 (8.4-10.2) mg/dL Pituitary panel 06/19/18 Range/Units 06:45 Sodium 137 (137-145) mmol/L Potassium 4.1 (3.5-5.1) mmol/L Chloride 97 L (98-107) mmol/L Carbon Dioxide 31 H (22-30) mmol/L BUN 28 H (7-17) mg/dL Creatinine 0.86 (0.52-1.04) mg/dL Glucose 359 H (74-99) mg/dL Calcium 9.2 (8.4-10.2) mg/dL Adrenal panel 06/19/18 Range/Units 06:45 Sodium 137 (137-145) mmol/L Potassium 4.1 (3.5-5.1) mmol/L Chloride 97 L (98-107) mmol/L Carbon Dioxide 31 H (22-30) mmol/L BUN 28 H (7-17) mg/dL Creatinine 0.86 (0.52-1.04) mg/dL Glucose 359 H (74-99) mg/dL Calcium 9.2 (8.4-10.2) mg/dL - Imaging Additional studies: Cardiac catheterization films were reviewed. Assessment and Plan (1) Coronary artery disease Status: Chronic Code(s): I25.10 - ATHSCL HEART DISEASE OF [place] CORONARY ARTERY W/O ANG PCTRS SNOMED Code(s): 15416768 (2) Dyspnea Status: Chronic Code(s): R06.00 - DYSPNEA, UNSPECIFIED SNOMED Code(s): 229210545 (3) Hyperlipidemia Status: Chronic Code(s): E78.5 - HYPERLIPIDEMIA, UNSPECIFIED SNOMED Code(s) : 55899449 (4) Hypertension Status: Chronic Code(s): I10 - ESSENTIAL (PRIMARY) HYPERTENSION SNOMED Code( s): 79819487 (5) Insulin dependent diabetes mellitus Status: Chronic Code(s): E11.9 - TYPE 2 DIABETES MELLITUS WITHOUT COMPLICATIONS; Z79.4 - PENITENTIARY (CURRENT) USE OF INSULIN SNOMED Code(s): 37203090 (6) Morbid obesity Status: Chronic Code(s): E66.01 - MORBID (SEVERE) OBESITY DUE TO EXCESS CALORIES SNOMED Code(s): 112658416 (7) Systolic heart failure Status: Chronic Code(s): I50.20 - UNSPECIFIED SYSTOLIC (CONGESTIVE) HEART FAILURE SNOMED Code(s): 484053571 (8) Tobacco dependence in remission Status: Resolved Code(s): F17.201 - NICOTINE DEPENDENCE, UNSPECIFIED, IN REMISSION SNOMED Code(s): 719834200 Plan: The patient was seen and examined in the extended stay unit with Dr. Gunn. Chart/diagnostics were reviewed. We would recommend continuing medical therapy with aspirin, statin, beta blockers, afterload reduction. We did offer coronary artery bypass grafting surgery to the patient. The usual course of surgery was discussed at length with the patient and a friend who was at the bedside, all risks and benefits were explained in detail, and all questions were answered. The patient indicated she really does not want open heart surgery and would rather have a stent placed, but she would like some time to think about it. She is to be discharged and to follow up with Dr. Pagan for further discussion. If she decides she is willing to consent open heart surgery , she is welcome to make an appointment with us to discuss timing, and our office phone number was given to the patient. This plan was discussed with Dr. Pagan. Thank you again Dr. Pagan for consulting our services. Please call us with any further questions. Time with Patient: Greater than 30 <Benny Gunn - Last Filed: 06/21/18 10:00> Surgical - Exam Vital Signs Temp Pulse Resp BP Pulse Ox 98.6 F 62 20 163/67 92 L 06/19/18 07:31 06/19/18 07:31 06/19/18 07:31 06/19/18 07:31 06/19/18 07:31 Results - Labs 06/19/18 06:45 Assessment and Plan Plan: The patient was seen and examined. I agree with the above assessment and plan. The patient is a 62 y/o female who was diagnosed last year with an MO and found to have CAD during a hospitalization. At that time, it was felt that she was not a surgical candidate given her acute condition. She has since been doing well at home but reports worsening exertional dyspnea. She underwent repeat cardiac cath today which revealed persistent multi-vessel CAD with worsening of her RCA disease. I do believe she is now a candidate for bypass; however, the patient is unsure whether she would wish to pursue surgical intervention. The risks, benefits, and alternatives to coronary artery bypass were discussed with the patient. All of her questions were answered. I spoke with Dr. Pagan about my recommendations as well. The patient will be discharged home and will further consider her options. Should she wish to pursue surgery, I will be happy to see her as an outpatient.
== END 2018-06-19 15:05 | disposition home or self-care (01) ==
LOC: CATHCVL 06:04
PROVIDERS: ATTEND Internal Medicine Interventional Cardiology
DX: I25.10 Atherosclerotic heart disease of native coronary artery without angina pectoris (principal); I25.84 Coronary atherosclerosis due to calcified coronary lesion; I11.0 Hypertensive heart disease with heart failure; I50.22 Chronic systolic (congestive) heart failure; Z87.891 Personal history of nicotine dependence; I25.5 Ischemic cardiomyopathy; E78.5 Hyperlipidemia, unspecified; I25.2 Old myocardial infarction; Z82.49 Family history of ischemic heart disease and other diseases of the circulatory system; E66.01 Morbid (severe) obesity due to excess calories; Z68.41 Body mass index [BMI] 40.0-44.9, adult; E11.9 Type 2 diabetes mellitus without complications; Z79.4 Long term (current) use of insulin; K21.9 Gastro-esophageal reflux disease without esophagitis; Z79.02 Long term (current) use of antithrombotics/antiplatelets; Z79.82 Long term (current) use of aspirin; Z79.899 Other long term (current) drug therapy; M17.0 Bilateral primary osteoarthritis of knee; H91.90 Unspecified hearing loss, unspecified ear
CPT/HCPCS: 93458; 80048; C1894; C1769 ×2; J2250; J2001; Q9967 ×2

== ENCOUNTER → 2018-07-15 | Outpatient (CLI) | payer OTHER ==
[2018-07-15 11:23] LABS: HCT 37.3 % (34.0-46.0); HGB 12.1 gm/dL (11.4-16.0); MCH 29.2 pg (25.0-35.0); MCHC 32.4 g/dL (31.0-37.0); MCV 90.1 fL (80.0-100.0); Mean Platelet Volume 6.9; Platelet Count 290 k/uL (150-450); RBC 4.14 m/uL (3.80-5.40); RDW 14.8 % (11.5-15.5)
[2018-07-15 11:36] LABS: Potassium 4.9 mmol/L (3.5-5.1)
== END ==
LOC: LABPAT 10:28
PROVIDERS: ATTEND Internal Medicine Interventional Cardiology
DX: Z01.812 Encounter for preprocedural laboratory examination (principal); I10 Essential (primary) hypertension; I25.10 Atherosclerotic heart disease of native coronary artery without angina pectoris; E78.2 Mixed hyperlipidemia
CPT/HCPCS: 36415; 80051; 82565; 84520; 85027

== ENCOUNTER 2018-07-18 12:06 | Emergency (ER) | payer OTHER ==
[2018-07-18 12:25] VITALS: BP 138/62; PULSE 73; RESP 18; TEMP 98.3
[2018-07-18] MEDS ORDERED: DIPH,PERTUS(ACELL)TETVAC-LF 0.5 ML VIAL IM ONE (12:59)
--- NOTE | 2018-07-18 13:07 | ED ---
General Adult HPI - General Chief complaint: Animal Bite Stated complaint: Cat bite Time Seen by Provider: 07/18/18 12:45 Source: patient, RN notes reviewed Mode of arrival: ambulatory Limitations: no limitations - History of Present Illness Initial comments: Patient is a 62-year-old female who presents the emergency department with complaints of cat scratches to her left hand that happened 2 days ago. She cleaned the area with rubbing alcohol and covered the area with bandages. She reports that since today the area has become red, swollen and warm. She reports that the cat is hers and it is up to date on all vaccinations, including rabies. She does not think the cat bit her, but she is not entirely sure. She is unsure when her last tetanus vaccination was done. She denies any allergies to antibiotics. Patient denies any recent fever, chills, shortness of breath, chest pain, back pain, abdominal pain, nausea or vomiting, numbness or tingling , headaches or visual changes, or any other complaints. - Related Data Home Medications Medication Instructions Recorded Confirmed Escitalopram [Lexapro] 10 mg PO HS 07/22/17 06/15/18 Lisinopril [Zestril] 5 mg PO HS 07/22/17 06/15/18 Aspirin 325 mg PO DAILY 04/04/18 06/15/18 Metoprolol Tartrate [Lopressor] 25 mg PO BID 04/04/18 06/15/18 Pantoprazole [Protonix] 40 mg PO DAILY 04/04/18 06/15/18 Atorvastatin [Lipitor] 80 mg PO HS 06/15/18 06/15/18 Furosemide [Lasix] 40 mg PO BID 06/15/18 06/15/18 Ibuprofen [Motrin] 600 mg PO Q8HR PRN 06/15/18 06/15/18 Insulin Aspart Protam & Aspart 15 unit SQ AC-SUPPER 06/15/18 06/15/18 [NovoLOG MIX 70-30 Flexpen] Insulin Aspart Protam & Aspart 20 unit SQ AC-BRKFST 06/15/18 06/15/18 [NovoLOG MIX 70-30 Flexpen] Previous Rx's Medication Instructions Recorded Clopidogrel [Plavix] 75 mg PO DAILY #30 tab 07/28/17 Nitroglycerin Sl Tabs [Nitrostat] 0.4 mg SUBLINGUAL Q5M PRN #25 tab 07/28/17 Amoxicillin/Potassium Clav 1 each PO Q12HR #20 tab 07/18/18 [Augmentin 875-125 Tablet] Allergies Allergy/AdvReac Type Severity Reaction Status Date / Time No Known Allergies Allergy Verified 07/18/18 12:25 Review of Systems ROS Statement: Those systems with pertinent positive or pertinent negative responses have been documented in the HPI. ROS Other: All systems not noted in ROS Statement are negative. Past Medical History Past Medical History: Diabetes Mellitus, GERD/Reflux, Hyperlipidemia, Hypertension, Osteoarthritis (OA) Additional Past Medical History / Comment(s): Bronchitis, current cat scratches bilateral legs, arthritis bilateral knees. History of Any Multi-Drug Resistant Organisms: None Reported Past Surgical History: Tonsillectomy Additional Past Surgical History / Comment(s): D&C x 2 Past Anesthesia/Blood Transfusion Reactions: No Reported Reaction Past Psychological History: Anxiety, Depression Smoking Status: Former smoker Past Alcohol Use History: None Reported Past Drug Use History: None Reported - Past Family History Father Family Medical History: Cancer Additional Family Medical History / Comment(s): Father of lung and prostate cancer at the age of 71 or 72 yrs. Mother Family Medical History: Coronary Artery Disease (CAD), CVA/TIA Additional Family Medical History / Comment(s): Mother of a CVA at the age of 87yrs. General Exam Limitations: no limitations General appearance: alert, in no apparent distress Head exam: Present: atraumatic, normocephalic Eye exam: Present: normal appearance Neck exam: Present: full ROM Respiratory exam: Present: normal lung sounds bilaterally Cardiovascular Exam: Present: regular rate, normal rhythm Extremities exam: Present: normal capillary refill, other (Some decrease in left hand ROM due to swelling.) Neurological exam: Present: alert, oriented X3 Psychiatric exam: Present: normal affect, normal mood Skin exam: Present: other (Left hand erythematous, edematous and warm. Left hand with multiple scratches. One scratch on right finger. No visible puncture uribe.) Course Vital Signs 07/18/18 12:22 Temperature 98.3 F Pulse Rate 73 Respiratory 18 Rate Blood Pressure 138/62 O2 Sat by Pulse 95 Oximetry Medical Decision Making - Medical Decision Making Patient is a 62-year-old female who presents emergency Department with complaints of Scratches to her hands. The left hand became swollen and red and warm since the scratches occurred 2 days ago. She is given a shot of Rocephin here. Her tetanus was updated here. She'll be sent home on Augmentin. Patient would like to go home and does not want to be admitted. She has been instructed to return to the emergency department if her swelling or redness increases as she may need IV antibiotics.Case discussed in detail with attending physician Dr. Newell. Disposition Clinical Impression: Cat scratch of hand Disposition: HOME SELF-CARE Condition: Good Instructions: Animal Bite (ED) Additional Instructions: Follow up with PCP in 2 days. Return to emergency department if symptoms worsen or any other concerns. Prescriptions: Amoxicillin/Potassium Clav [Augmentin 875-125 Tablet] 1 each PO Q12HR #20 tab Is patient prescribed a controlled substance at d/c from ED?: No Referrals: Clovis Izaguirre MD [Primary Care Provider] - 1-2 days
[2018-07-18] MEDS ORDERED: cefTRIAXone 1,000 MG VIAL (IM USE) IM STA (13:28)
== END 2018-07-18 14:22 | disposition home or self-care (01) ==
LOC: EC 12:06
DX: S60.512A Abrasion of left hand, initial encounter (principal); S60.419A Abrasion of unspecified finger, initial encounter; E11.9 Type 2 diabetes mellitus without complications; E78.5 Hyperlipidemia, unspecified; I10 Essential (primary) hypertension; K21.9 Gastro-esophageal reflux disease without esophagitis; M17.0 Bilateral primary osteoarthritis of knee; F32.9 Major depressive disorder, single episode, unspecified; F41.9 Anxiety disorder, unspecified; Z87.891 Personal history of nicotine dependence; Z79.4 Long term (current) use of insulin; Z79.82 Long term (current) use of aspirin; Z79.899 Other long term (current) drug therapy; Z23 Encounter for immunization; W55.03XA Scratched by cat, initial encounter
CPT/HCPCS: 90715; 99283; 90471; 96372; J0696

== ENCOUNTER → 2018-08-26 | Outpatient (CLI) | payer OTHER ==
[2018-08-26 12:03] LABS: HCT 41.1 % (34.0-46.0); HGB 12.9 gm/dL (11.4-16.0); Hypochromasia Slight; MCH 28.7 pg (25.0-35.0); MCHC 31.3 g/dL (31.0-37.0); MCV 91.5 fL (80.0-100.0); Mean Platelet Volume 7.5; Platelet Count 271 k/uL (150-450); RBC 4.49 m/uL (3.80-5.40); RDW 15.3 % (11.5-15.5); WBC 6.9 k/uL (3.8-10.6)
[2018-08-26 12:13] LABS: Potassium 5.4 mmol/L (3.5-5.1)
== END ==
LOC: LABPAT 10:43
PROVIDERS: ATTEND Internal Medicine Interventional Cardiology
DX: Z01.812 Encounter for preprocedural laboratory examination (principal); I25.10 Atherosclerotic heart disease of native coronary artery without angina pectoris; I10 Essential (primary) hypertension
CPT/HCPCS: 36415; 80051; 82565; 84520; 85027

== ENCOUNTER 2018-08-28 06:33 | Day surgery (SDC) | payer OTHER ==
[~2018-08-28 06:33] MED LIST changes: +ALPRAZolam 0.5 MG TAB PO PRN; -ASPIRIN 325 MG TAB PO ONE; +ASPIRIN 325 MG TAB PO STA; +ATORVASTATIN 80 MG TAB PO STA; +NITROGLYCERIN SL TABS 0.4 MG TAB SUBLINGUAL PRN
[2018-08-28] MEDS ORDERED: INSULIN ASPART 100 UNIT/ML 1 ML 10 ML VIAL SQ ONE (07:23)
[2018-08-28] MEDS ORDERED: MIDAZOLAM 2 MG/2 ML VIAL IV ONE (07:47)
[2018-08-28] MEDS ORDERED: LIDOCAINE 1% INJ 10MG/ML (20 ML MDV) SQ ONE (07:49)
[2018-08-28] MEDS ORDERED: MIDAZOLAM 2 MG/2 ML VIAL IVP ONE (07:55)
[2018-08-28] MEDS ORDERED: fentaNYL (PF) 50 MCG/ML 2 ML AMP IVP ONE (07:55)
[2018-08-28] MEDS ORDERED: NITROGLYCERIN 1000MCG/10ML SYRINGE INTRACORON ONE ×3 (07:56→08:22)
[2018-08-28] MEDS ORDERED: BIVALIRUDIN BOLUS 250 MG/50 ML IV ONE (07:56)
[2018-08-28] MEDS ORDERED: BIVALIRUDIN 250 MG in SODIUM CHLORIDE 0.9% 50 ML IV ONE (07:57)
[2018-08-28 08:02] LABS: Glucose,Whole Blood 202 mg/dL (75-99)
[2018-08-28] MEDS ORDERED: CLOPIDOGREL 75 MG TAB PO ONE (08:19)
[2018-08-28] MEDS ORDERED: IOPAMIDOL-370 125ML BTL INJ ONE (08:30)
[2018-08-28] MEDS ORDERED: IV FLUID CONTINUATION 1,000 ML IV ONE (08:32)
[2018-08-28] MEDS ORDERED: NITROGLYCERIN SL TABS 0.4 MG TAB SUBLINGUAL PRN ×2 (08:37→08:38)
[2018-08-28] MEDS ORDERED: MAG HYDROX/AL HYDROX/SIMETH 30 ML CUP PO PRN (08:38)
[2018-08-28] MEDS ORDERED: RX INFO: IV CONTRAST WAS GIVEN 1 EACH MISC MISCELLANE PRN (08:38)
[2018-08-28] MEDS ORDERED: ATROPINE SULFATE 0.1 MG/ML 10ML SYRINGE IV PRN (08:38)
[2018-08-28] MEDS ORDERED: SODIUM CHLORIDE 0.9% 1,000 ML IV SCH (08:45)
[2018-08-28] MEDS ORDERED: CLOPIDOGREL 75 MG TAB PO SCH (09:00)
[2018-08-28] MEDS ORDERED: ASPIRIN 325 MG TAB PO SCH (09:00)
--- NOTE | 2018-08-28 10:30 | LTR ---
DATE OF SERVICE: August 28, [address] Izaguirre: Nesha Coffey underwent successful stenting of the right coronary artery using 2 drug- eluting stents with good angiographic results and without any complication. Thank you for allowing me to participate in her care and please do not hesitate to call if you have any questions or concerns. Sincerely, MMODL / IJN: [id number] /
[2018-08-28] MEDS: INSULN ASP PRT/INSULIN ASPART 100 UNIT/ML 10 ML VIAL SQ SCH (10:37)
[2018-08-28 14:29] VITALS: BMI 41.1
[2018-08-28] MEDS: METOPROLOL TARTRATE 25 MG TAB PO SCH ×2 (15:26→20:27)
[2018-08-28] MEDS: FUROSEMIDE 40 MG TAB PO SCH (15:28)
[2018-08-28 16:25] LABS: Glucose,Whole Blood 253 mg/dL (75-99)
[2018-08-28] MEDS ORDERED: INSULN ASP PRT/INSULIN ASPART 100 UNIT/ML 10 ML VIAL SQ SCH (17:30)
[2018-08-28 20:38] VITALS: RESP 18
[2018-08-28] MEDS ORDERED: ATORVASTATIN 80 MG TAB PO SCH (21:00)
[2018-08-28] MEDS ORDERED: ESCITALOPRAM 10 MG TAB PO SCH (21:00)
[2018-08-28] MEDS ORDERED: LISINOPRIL 5 MG TAB PO SCH (21:00)
[2018-08-28] MEDS ORDERED: ZOLPIDEM 5 MG TAB PO PRN (21:00)
[2018-08-28 22:28] LABS: Glucose,Whole Blood 256 mg/dL (75-99)
[2018-08-29 05:58] LABS: Glucose,Whole Blood 193 mg/dL (75-99)
[2018-08-29] MEDS: INSULN ASP PRT/INSULIN ASPART 100 UNIT/ML 10 ML VIAL SQ SCH (07:24)
[2018-08-29 07:38] LABS: Basophils # (A) 0.1 k/uL (0-0.2); Basophils % (A) 1 %; Eosinophils # (A) 0.3 k/uL (0-0.7); Eosinophils % (A) 4 %; HCT 36.3 % (34.0-46.0); HGB 11.1 gm/dL (11.4-16.0); Lymphocytes # (A) 1.1 k/uL (1.0-4.8); Lymphocytes % (A) 17 %; MCH 27.5 pg (25.0-35.0); MCHC 30.5 g/dL (31.0-37.0); MCV 90.1 fL (80.0-100.0); Mean Platelet Volume 7.1; Monocytes # (A) 0.4 k/uL (0-1.0); Monocytes % (A) 7 %; Neutrophils # (A) 4.5 k/uL (1.3-7.7); Neutrophils % (A) 69 %; Platelet Count 258 k/uL (150-450); RBC 4.02 m/uL (3.80-5.40); RDW 15.4 % (11.5-15.5); WBC 6.5 k/uL (3.8-10.6)
[2018-08-29 07:45] LABS: Potassium 4.7 mmol/L (3.5-5.1)
[2018-08-29] MEDS: METOPROLOL TARTRATE 25 MG TAB PO SCH (08:42)
[2018-08-29] MEDS: FUROSEMIDE 40 MG TAB PO SCH (08:42)
[2018-08-29] MEDS ORDERED: ASPIRIN 325 MG TAB PO SCH (09:00)
[2018-08-29] MEDS ORDERED: CLOPIDOGREL 75 MG TAB PO SCH (09:00)
--- NOTE | 2018-08-29 09:04 | PTCA ---
PERCUTANEOUSTRANS CORORONARY ANGIOGRAPHY DATE OF SERVICE: 08/28/2018 PERFORMING PHYSICIAN: Rafael Pagan MD, Relocation Services Specialist. PROCEDURE PERFORMED: 1. Successful stenting of the distal right coronary artery using 3.0 x 38 mm Xience drug-eluting stent with good angiographic results. 2. Successful stenting of the mid right coronary artery using 3.0 x 23 mm Xience drug- eluting stent with good angiographic results. INDICATION: This is a pleasant 62-year-old female patient who is morbidly obese as well as does have hypertension and dyslipidemia who was admitted to the hospital with heart failure and was diagnosed with severe cardiomyopathy a few months ago. She underwent heart catheterization at that point and that showed severe triple-vessel coronary artery disease. She was seen and evaluated by a surgeon who referred the patient as high risk for surgery. She was offered to be seen by another surgeon, but she refused to go through surgery and she will go with percutaneous coronary intervention. APPROACH: Right right common femoral artery. COMPLICATION: None. LEVEL OF SEDATION: Moderate with sedation length of 45 minutes. PROCEDURE DESCRIPTION: After obtaining an informed consent, the patient was brought to cardiac medical laboratory scientist. The right common femoral artery was cannulated using micropuncture technique. The micropuncture wire passed easily, then I placed a 6-Citizen [place] sheath in the right common femoral artery. After that, I did start anticoagulation using Angiomax. After that, I did engage the right coronary artery using a JR4 guide. A whisper wire was used history right whisper. A run-through wire was used to wire the right coronary artery. After that I did balloon angioplasty of the right coronary artery using 3.0 x 15 mm balloon, where the balloon was inflated in the distal and mid right coronary artery. After that, I did deploy distally 3.0 x 38 mm Xience drug-eluting stent where the stent was positioned under fluoroscopy guidance and deployed under 12 atmospheres for 20 seconds. For the mid right coronary artery, I did deploy a 3.0 x 23 mm Xience drug- eluting stent with about maybe 1 mm overlap between the 2 stents. The second stent was deployed under 12 atmospheres for 20 seconds with the area of junction between the 2 stents was dilated using the stent balloon. The following angiogram showed good angiographic results without any perforation and without any dissection. The procedure was completed without any complication. POSTPROCEDURE MANAGEMENT: 1. Dual anti-platelet therapy. 2. Risk factors modifications. 3. Follow up with the patient. STEPHEN / SHASHIN: [id number] /
[2018-08-29 11:18] VITALS: BP 118/57; TEMP 98.4
[2018-08-29 11:54] LABS: Glucose,Whole Blood 178 mg/dL (75-99)
[2018-08-29 14:09] VITALS: PULSE 74
[2018-08-29] MEDS ORDERED: PANTOPRAZOLE 40 MG TABLET PO SCH (14:15)
--- NOTE | 2018-08-30 00:07 | DS ---
DISCHARGE SUMMARY ADMISSION DATE: 08/28/2018. DISCHARGE DATE: 08/29/2018. BRIEF HISTORY: This is a pleasant 62-year-old female patient with a history of coronary artery disease, hypertension, and dyslipidemia, who was admitted to the hospital yesterday and underwent successful stenting of the distal and mid right coronary artery using 2 drug-eluting stents with good angiographic result and reduction of stenosis from 90% to 0%. I will follow up with her today, she is doing good and she is asymptomatic. Right groin is soft and nontender and without any bruises. The patient is going to be discharged home on dual anti-platelet therapy. I will follow up with the patient in a week in the office. MMODL / IJN: [id number] /
== END 2018-08-29 14:03 | disposition home or self-care (01) ==
LOC: CATHCVL 06:33 → 3SCARD 13:37 → CATHCVL 08-29 14:03
PROVIDERS: ATTEND Internal Medicine Interventional Cardiology
DX: I25.10 Atherosclerotic heart disease of native coronary artery without angina pectoris (principal); R94.31 Abnormal electrocardiogram [ECG] [EKG]; E78.5 Hyperlipidemia, unspecified; I10 Essential (primary) hypertension; E11.9 Type 2 diabetes mellitus without complications; I25.5 Ischemic cardiomyopathy; E66.01 Morbid (severe) obesity due to excess calories; Z68.41 Body mass index [BMI] 40.0-44.9, adult; I25.2 Old myocardial infarction; Z95.5 Presence of coronary angioplasty implant and graft; Z79.02 Long term (current) use of antithrombotics/antiplatelets; Z79.82 Long term (current) use of aspirin; Z79.4 Long term (current) use of insulin; Z79.899 Other long term (current) drug therapy
CPT/HCPCS: 80048; 84132; 85025; C9600; C1769 ×4; C1887; C1725; C1894; C1760; C1874; J2250; J2001; J3010; J0583; Q9967

== ENCOUNTER 2019-03-08 09:32 | Emergency (ER) | payer OTHER ==
[2019-03-08 09:37] VITALS: BP 140/60; PULSE 68; RESP 18; TEMP 98.3
--- NOTE | 2019-03-08 09:53 | ED ---
Skin/Abscess/FB HPI - General Chief complaint: Skin/Abscess/Foreign Body Stated complaint: cat scratch L hand Time Seen by Provider: 03/08/19 09:38 Source: patient, RN notes reviewed Mode of arrival: ambulatory Limitations: no limitations - History of Present Illness Initial comments: 63-year-old female presents emergency from chief complaint of left hand cat scratch. Patient states his happened 2 days ago. Patient states was her own. Patient is up-to-date on her tetanus there is no bites. Patient is concerned about infection as it slightly swollen today. Patient has full range of motion of all digits in complaints of no other associated symptoms - Related Data Home Medications Medication Instructions Recorded Confirmed Escitalopram [Lexapro] 10 mg PO HS 07/22/17 08/28/18 Lisinopril [Zestril] 5 mg PO HS 07/22/17 08/28/18 Aspirin 325 mg PO DAILY 04/04/18 08/28/18 Metoprolol Tartrate [Lopressor] 25 mg PO BID 04/04/18 08/28/18 Pantoprazole [Protonix] 40 mg PO DAILY 04/04/18 08/28/18 Atorvastatin [Lipitor] 80 mg PO HS 06/15/18 08/28/18 Furosemide [Lasix] 40 mg PO BID 06/15/18 08/28/18 Insulin Aspart Protam & Aspart 15 unit SQ AC-SUPPER 06/15/18 08/28/18 [NovoLOG MIX 70-30 Flexpen] Insulin Aspart Protam & Aspart 20 unit SQ AC-BRKFST 06/15/18 08/28/18 [NovoLOG MIX 70-30 Flexpen] Previous Rx's Medication Instructions Recorded Clopidogrel [Plavix] 75 mg PO DAILY #30 tab 07/28/17 Nitroglycerin Sl Tabs [Nitrostat] 0.4 mg SUBLINGUAL Q5M PRN #25 tab 07/28/17 Azithromycin [Zithromax Z-pack] 0 mg PO DIRECTED #1 pack 03/08/19 Cephalexin [Keflex] 500 mg PO Q6HR #28 cap 03/08/19 Allergies Allergy/AdvReac Type Severity Reaction Status Date / Time No Known Allergies Allergy Verified 03/08/19 09:36 Review of Systems ROS Statement: Those systems with pertinent positive or pertinent negative responses have been documented in the HPI. ROS Other: All systems not noted in ROS Statement are negative. Past Medical History Past Medical History: Diabetes Mellitus, GERD/Reflux, Hyperlipidemia, Hypertension, Myocardial Infarction ([place]), Osteoarthritis (OA) Additional Past Medical History / Comment(s): states has scratches on legs Last Myocardial Infarction Date:: History of Any Multi-Drug Resistant Organisms: None Reported Past Surgical History: Heart Catheterization, Tonsillectomy Additional Past Surgical History / Comment(s): D&C x 2 Past Anesthesia/Blood Transfusion Reactions: No Reported Reaction Past Psychological History: Anxiety, Depression Smoking Status: Former smoker Past Alcohol Use History: None Reported Past Drug Use History: None Reported - Past Family History Father Family Medical History: Cancer Additional Family Medical History / Comment(s): Father of lung and prostate cancer at the age of 71 or 72 yrs. Mother Family Medical History: Coronary Artery Disease (CAD), CVA/TIA Additional Family Medical History / Comment(s): Mother of a CVA at the age of 87yrs. General Exam Limitations: no limitations General appearance: alert, in no apparent distress Head exam: Present: atraumatic, normocephalic, normal inspection Eye exam: Present: normal appearance, PERRL, EOMI. Absent: scleral icterus, conjunctival injection, periorbital swelling Respiratory exam: Present: normal lung sounds bilaterally. Absent: respiratory distress, wheezes, rales, rhonchi, stridor Cardiovascular Exam: Present: regular rate, normal rhythm, normal heart sounds. Absent: systolic murmur, diastolic murmur, rubs, gallop, clicks Extremities exam: Present: other (Left hand there is mild swelling to the dorsal aspect with healing scratch/abrasion noted, no epitrochlear nodes no tenderness to left axilla no evidence of lymphangitis.) Skin exam: Present: warm, dry, intact Course Vital Signs 03/08/19 09:34 Temperature 98.3 F Pulse Rate 68 Respiratory 18 Rate Blood Pressure 140/60 O2 Sat by Pulse 96 Oximetry Medical Decision Making - Medical Decision Making 63-year-old female present for left hand swelling after Scratch. There is concerns of early infection at this time. Patient has normal drug ALLERGIES. Patient will placed on Keflex and azithromycin for possible cat scratch fever. Patient will follow-up PCP and return for any worsening symptoms. Disposition Clinical Impression: Cat scratch of hand Disposition: HOME SELF-CARE Condition: Stable Instructions (If sedation given, give patient instructions): Cat Scratch Disease (ED) Additional Instructions: Please return to the Emergency Department if symptoms worsen or any other concerns. Prescriptions: Cephalexin [Keflex] 500 mg PO Q6HR #28 cap Azithromycin [Zithromax Z-pack] 0 mg PO DIRECTED #1 pack Is patient prescribed a controlled substance at d/c from ED?: No Referrals: Clovis Izaguirre MD [Primary Care Provider] - 1-2 days Time of Disposition: 09:52
== END 2019-03-08 09:55 | disposition home or self-care (01) ==
LOC: EC 09:32
DX: S60.512A Abrasion of left hand, initial encounter (principal); E11.9 Type 2 diabetes mellitus without complications; K21.9 Gastro-esophageal reflux disease without esophagitis; E78.5 Hyperlipidemia, unspecified; I10 Essential (primary) hypertension; I25.2 Old myocardial infarction; F41.9 Anxiety disorder, unspecified; F32.9 Major depressive disorder, single episode, unspecified; Z79.82 Long term (current) use of aspirin; Z79.4 Long term (current) use of insulin; Z79.899 Other long term (current) drug therapy; Z87.891 Personal history of nicotine dependence; Z95.5 Presence of coronary angioplasty implant and graft; W55.03XA Scratched by cat, initial encounter
CPT/HCPCS: 99283

== ENCOUNTER 2021-01-04 15:48 | Emergency (ER) | payer OTHER ==
[2021-01-04 15:53] LABS: Glucose,Whole Blood 42 mg/dL (75-99)
[2021-01-04 16:09] LABS: Glucose,Whole Blood 47 mg/dL (75-99)
[2021-01-04 16:15] VITALS: RESP 18
[2021-01-04 16:23] LABS: Basophils # (A) 0.1 k/uL (0-0.2); Basophils % (A) 1 %; Eosinophils # (A) 0.3 k/uL (0-0.7); Eosinophils % (A) 3 %; HCT 45.4 % (34.0-46.0); HGB 14.2 gm/dL (11.4-16.0); Lymphocytes # (A) 1.1 k/uL (1.0-4.8); Lymphocytes % (A) 11 %; MCH 29.4 pg (25.0-35.0); MCHC 31.3 g/dL (31.0-37.0); MCV 93.9 fL (80.0-100.0); Mean Platelet Volume 8.7; Monocytes # (A) 0.4 k/uL (0-1.0); Monocytes % (A) 4 %; Neutrophils # (A) 8.7 k/uL (1.3-7.7); Neutrophils % (A) 80 %; Platelet Count 258 k/uL (150-450); RBC 4.83 m/uL (3.80-5.40); RDW 14.8 % (11.5-15.5); WBC 10.8 k/uL (3.8-10.6)
[2021-01-04 16:32] LABS: Glucose,Whole Blood 86 mg/dL (75-99)
[2021-01-04 16:35] LABS: ALT 40 U/L (4-34); AST 60 U/L (14-36); African American GFR (CKD) >90 (>60 ml/min/1.73 sqM); Albumin 4.4 g/dL (3.5-5.0); Alkaline Phosphatase 195 U/L (38-126); Anion Gap 7 mmol/L; Blood Urea Nitrogen 25 mg/dL (7-17); Calcium 9.7 mg/dL (8.4-10.2); Carbon Dioxide 32 mmol/L (22-30); Chloride 101 mmol/L (98-107); Creatine Kinase 132 U/L (30-135); Glucose 63 mg/dL (74-99); Magnesium 2.1 mg/dL (1.6-2.3); Non-African American GFR(CKD) 84 (>60 ml/min/1.73 sqM); Potassium 4.5 mmol/L (3.5-5.1); Sodium 140 mmol/L (137-145); Total Bilirubin 0.6 mg/dL (0.2-1.3); Total Protein 8.1 g/dL (6.3-8.2)
--- NOTE | 2021-01-04 16:41 | ED ---
Recheck HPI - General Chief Complaint: Recheck/Abnormal Lab/Rx Stated Complaint: Low surgar Source: patient, EMS Mode of arrival: EMS Limitations: no limitations - History of Present Illness Initial Comments: Patient is a 65 female past medical history of diabetes, hypertension, [place] who presents emergency department after she was found unresponsive in her yard. A neighbor called EMS. When EMS got really checked her glucose and found it to be 28. She was given a half amp of dextrose and has remained in her mentation. Patient reports that she thought that her glucose level was low. Believes that she may have taken 3 doses of her rapid acting insulin today. Did take her basal insulin last night. Patient was going to eat but decided to go out into her yard to feed the neighbor cats. States that she could've an outside for upwards of 1.5 hours. She was found on the concrete. Patient denies any pain. Denies headaches or visual changes. No neck or back pain. Denies chest pain or shortness of breath. No abdominal pain. Denies any recent illnesses. No nausea, vomiting or diarrhea. Patient states this is common for her and does have glucose tablets on hand. No other alleviating, precipitating or modifying factors - Related Data Home Medications Medication Instructions Recorded Confirmed lisinopriL [Zestril] 5 mg PO DAILY 07/22/17 01/04/21 Metoprolol Tartrate [Lopressor] 25 mg PO BID 04/04/18 01/04/21 Furosemide [Lasix] 40 mg PO BID 06/15/18 01/04/21 Escitalopram [Lexapro] 20 mg PO DAILY 01/04/21 01/04/21 Insulin Glargine,Hum.rec.anlog 20 unit SQ HS 01/04/21 01/04/21 [Lantus Solostar] Insulin Lispro [humaLOG Kwikpen] 5 unit SQ QID 01/04/21 01/04/21 Insulin Lispro [humaLOG Kwikpen] See Protocol SQ QID 01/04/21 01/04/21 Previous Rx's Medication Instructions Recorded Clopidogrel [Plavix] 75 mg PO DAILY #30 tab 07/28/17 Nitroglycerin Sl Tabs [Nitrostat] 0.4 mg SUBLINGUAL Q5M PRN #25 tab 07/28/17 Allergies Allergy/AdvReac Type Severity Reaction Status Date / Time No Known Allergies Allergy Verified 01/04/21 17:39 Review of Systems ROS Statement: Those systems with pertinent positive or pertinent negative responses have been documented in the HPI. ROS Other: All systems not noted in ROS Statement are negative. Past Medical History Past Medical History: Diabetes Mellitus, GERD/Reflux, Hyperlipidemia, Hyp ertension, Myocardial Infarction ([place]), Osteoarthritis (OA) Additional Past Medical History / Comment(s): states has scratches on legs Last Myocardial Infarction Date:: History of Any Multi-Drug Resistant Organisms: None Reported Past Surgical History: Heart Catheterization, Tonsillectomy Additional Past Surgical History / Comment(s): D&C x 2 Past Anesthesia/Blood Transfusion Reactions: No Reported Reaction Past Psychological History: Anxiety, Depression Smoking Status: Never smoker Past Alcohol Use History: None Reported Past Drug Use History: None Reported - Past Family History Father Family Medical History: Cancer Additional Family Medical History / Comment(s): Father of lung and prostate cancer at the age of 71 or 72 yrs. Mother Family Medical History: Coronary Artery Disease (CAD), CVA/TIA Additional Family Medical History / Comment(s): Mother of a CVA at the age of 87yrs. General Exam Limitations: no limitations Course Vital Signs 01/04/21 01/04/21 01/04/21 16:06 16:37 19:54 Temperature 97.3 F L 98.0 F Pulse Rate 67 70 Respiratory 18 18 Rate Blood Pressure 178/76 133/74 O2 Sat by Pulse 94 L 99 Oximetry Medical Decision Making - Medical Decision Making Upon arrival patient's placed into room 1. We did obtain IV access. Glucose is obtained and the patient's CBG is 42 on arrival. She was given a glucose tab and another half amp of dextrose. Patient is given something to eat. She does have improvement in her mentation. Denies any injuries at this time. Recommend laboratory studies which were conducted. Laboratory studies are reviewed we did repeat the patient's Accu-Cheks and she does have improvement. Patient does become more alert. He is comfortable for discharge at this time. Did instruct her to follow up with her primary care doctor within 2-4 days for reevaluation. Return to the emergency room for any new or worsening symptoms. Patient was reevaluated for any injuries after being from the ground continues to have no pain. Patient was discharged home in stable condition - Lab Data Result diagrams: 01/04/21 16:15 01/04/21 16:15 Lab Results 01/04/21 01/04/21 01/04/21 Range/Units 15:52 16:07 16:15 WBC 10.8 H (3.8-10.6) k/uL RBC 4.83 (3.80-5.40) m/uL Hgb 14.2 (11.4-16.0) gm/dL Hct 45.4 (34.0-46.0) % MCV 93.9 (80.0-100.0) fL MCH 29.4 (25.0-35.0) pg MCHC 31.3 (31.0-37.0) g/dL RDW 14.8 (11.5-15.5) % Plt Count 258 (150-450) k/uL MPV 8.7 Neutrophils % 80 % Lymphocytes % 11 % Monocytes % 4 % Eosinophils % 3 % Basophils % 1 % Neutrophils # 8.7 H (1.3-7.7) k/uL Lymphocytes # 1.1 (1.0-4.8) k/uL Monocytes # 0.4 (0-1.0) k/uL Eosinophils # 0.3 (0-0.7) k/uL Basophils # 0.1 (0-0.2) k/uL Sodium (137-145) mmol/L Potassium (3.5-5.1) mmol/L Chloride (98-107) mmol/L Carbon Dioxide (22-30) mmol/L Anion Gap mmol/L BUN (7-17) mg/dL Creatinine (0.52-1.04) mg/dL Est GFR (CKD-EPI)AfAm (>60 ml/min/1.73 sqM) Est GFR (CKD-EPI)NonAf (>60 ml/min/1.73 sqM) Glucose (74-99) mg/dL POC Glucose (mg/dL) 42 L 47 L (75-99) mg/dL POC Glu Maintenance Coordinator ID Nicole Bennett Danielle Calcium (8.4-10.2) mg/dL Magnesium (1.6-2.3) mg/dL Total Bilirubin (0.2-1.3) mg/dL AST (14-36) U/L ALT (4-34) U/L Alkaline Phosphatase (38-126) U/L Creatine Kinase (30-135) U/L Troponin I (0.000-0.034) ng/mL Total Protein (6.3-8.2) g/dL Albumin (3.5-5.0) g/dL 01/04/21 01/04/21 01/04/21 Range/Units 16:15 16:15 16:30 WBC (3.8-10.6) k/uL RBC (3.80-5.40) m/uL Hgb (11.4-16.0) gm/dL Hct (34.0-46.0) % MCV (80.0-100.0) fL MCH (25.0-35.0) pg MCHC (31.0-37.0) g/dL RDW (11.5-15.5) % Plt Count (150-450) k/uL MPV Neutrophils % % Lymphocytes % % Monocytes % % Eosinophils % % Basophils % % Neutrophils # (1.3-7.7) k/uL Lymphocytes # (1.0-4.8) k/uL Monocytes # (0-1.0) k/uL Eosinophils # (0-0.7) k/uL Basophils # (0-0.2) k/uL Sodium 140 (137-145) mmol/L Potassium 4.5 (3.5-5.1) mmol/L Chloride 101 (98-107) mmol/L Carbon Dioxide 32 H (22-30) mmol/L Anion Gap 7 mmol/L BUN 25 H (7-17) mg/dL Creatinine 0.76 (0.52-1.04) mg/dL Est GFR (CKD-EPI)AfAm >90 (>60 ml/min/1.73 sqM) Est GFR (CKD-EPI)NonAf 84 (>60 ml/min/1.73 sqM) Glucose 63 L (74-99) mg/dL POC Glucose (mg/dL) 86 (75-99) mg/dL POC Glu Maintenance Coordinator ID Nicole Bennett Calcium 9.7 (8.4-10.2) mg/dL Magnesium 2.1 (1.6-2.3) mg/dL Total Bilirubin 0.6 (0.2-1.3) mg/dL AST 60 H (14-36) U/L ALT 40 H (4-34) U/L Alkaline Phosphatase 195 H (38-126) U/L Creatine Kinase 132 (30-135) U/L Troponin I <0.012 (0.000-0.034) ng/mL Total Protein 8.1 (6.3-8.2) g/dL Albumin 4.4 (3.5-5.0) g/dL 01/04/21 01/04/21 Range/Units 17:10 18:01 WBC (3.8-10.6) k/uL RBC (3.80-5.40) m/uL Hgb (11.4-16.0) gm/dL Hct (34.0-46.0) % MCV (80.0-100.0) fL MCH (25.0-35.0) pg MCHC (31.0-37.0) g/dL RDW (11.5-15.5) % Plt Count (150-450) k/uL MPV Neutrophils % % Lymphocytes % % Monocytes % % Eosinophils % % Basophils % % Neutrophils # (1.3-7.7) k/uL Lymphocytes # (1.0-4.8) k/uL Monocytes # (0-1.0) k/uL Eosinophils # (0-0.7) k/uL Basophils # (0-0.2) k/uL Sodium (137-145) mmol/L Potassium (3.5-5.1) mmol/L Chloride (98-107) mmol/L Carbon Dioxide (22-30) mmol/L Anion Gap mmol/L BUN (7-17) mg/dL Creatinine (0.52-1.04) mg/dL Est GFR (CKD-EPI)AfAm (>60 ml/min/1.73 sqM) Est GFR (CKD-EPI)NonAf (>60 ml/min/1.73 sqM) Glucose (74-99) mg/dL POC Glucose (mg/dL) 161 H 190 H (75-99) mg/dL POC Glu Maintenance Coordinator ID Nicole Bennett Nicole Calcium (8.4-10.2) mg/dL Magnesium (1.6-2.3) mg/dL Total Bilirubin (0.2-1.3) mg/dL AST (14-36) U/L ALT (4-34) U/L Alkaline Phosphatase (38-126) U/L Creatine Kinase (30-135) U/L Troponin I (0.000-0.034) ng/mL Total Protein (6.3-8.2) g/dL Albumin (3.5-5.0) g/dL - EKG Data EKG Comments: EKG demonstrates normal sinus rhythm with a ventricular rate of 71. MO interval 206. QRS 98. QTC of 480. No acute ST segment elevations. Inverted T-wave in lead 3 Disposition Clinical Impression: Hypoglycemia, Acute encephalopathy Disposition: HOME SELF-CARE Condition: Stable Instructions (If sedation given, give patient instructions): Hypoglycemia in a Person with Diabetes (ED) Additional Instructions: Please follow up with Dr. Izaguirre in 2-4 days. Return to the ED for any new or worsening symptoms. You may take your night time insulin. Is patient prescribed a controlled substance at d/c from ED?: No Referrals: Clovis Izaguirre MD [Primary Care Provider] - 1-2 days Time of Disposition: 19:14
[2021-01-04 17:13] LABS: Glucose,Whole Blood 161 mg/dL (75-99)
[2021-01-04 18:03] LABS: Glucose,Whole Blood 190 mg/dL (75-99)
[2021-01-04 19:58] VITALS: BP 133/74; PULSE 70; TEMP 98
== END 2021-01-04 19:54 | disposition home or self-care (01) ==
LOC: EC 15:48
DX: E11.649 Type 2 diabetes mellitus with hypoglycemia without coma (principal); K21.9 Gastro-esophageal reflux disease without esophagitis; E78.5 Hyperlipidemia, unspecified; M19.90 Unspecified osteoarthritis, unspecified site; I10 Essential (primary) hypertension; F41.9 Anxiety disorder, unspecified; F32.9 Major depressive disorder, single episode, unspecified; I25.2 Old myocardial infarction
CPT/HCPCS: 36415; 80053; 82550; 83735; 84484; 85025; 93005; 99285

== ENCOUNTER 2021-04-07 13:43 | Emergency (ER) | payer OTHER ==
[2021-04-07 14:16] VITALS: BP 162/81; PULSE 76; RESP 18
--- NOTE | 2021-04-07 14:20 | ED ---
Animal Bite HPI - General Stated Complaint: Cat bite Time Seen by Provider: 04/07/21 13:56 Source: patient, RN notes reviewed Mode of arrival: ambulatory Limitations: no limitations - History of Present Illness Initial Comments: Patient is a 65-year-old female that presents to emergency department complaining of a cat bite. She notes that she was bit by her cat after she tried breaking up a fight between her dog. She notes that she has one spot on her right forearm just distal to the elbow that is concerning. She notes this happened within the last couple days. She denied any other complaints or issues. She denied any pain. She any chest pain first breath headache nausea vomiting diarrhea constipation fever fatigue chills. - Related Data Home Medications Medication Instructions Recorded Confirmed lisinopriL [Zestril] 5 mg PO DAILY 07/22/17 01/04/21 Metoprolol Tartrate [Lopressor] 25 mg PO BID 04/04/18 01/04/21 Furosemide [Lasix] 40 mg PO BID 06/15/18 01/04/21 Escitalopram [Lexapro] 20 mg PO DAILY 01/04/21 01/04/21 Insulin Glargine,Hum.rec.anlog 20 unit SQ HS 01/04/21 01/04/21 [Lantus Solostar] Insulin Lispro [humaLOG Kwikpen] 5 unit SQ QID 01/04/21 01/04/21 Insulin Lispro [humaLOG Kwikpen] See Protocol SQ QID 01/04/21 01/04/21 Previous Rx's Medication Instructions Recorded Clopidogrel [Plavix] 75 mg PO DAILY #30 tab 07/28/17 Nitroglycerin Sl Tabs [Nitrostat] 0.4 mg SUBLINGUAL Q5M PRN #25 tab 07/28/17 Amoxicillin/Potassium Clav 1 tab PO Q12HR #20 tab 04/07/21 [Augmentin 875-125 Tablet] Allergies Allergy/AdvReac Type Severity Reaction Status Date / Time No Known Allergies Allergy Verified 01/04/21 17:39 Review of Systems ROS Statement: Those systems with pertinent positive or pertinent negative responses have been documented in the HPI. ROS Other: All systems not noted in ROS Statement are negative. Past Medical History Past Medical History: Diabetes Mellitus, GERD/Reflux, Hyperlipidemia, Hypertension, Myocardial Infarction (PA), Osteoarthritis (OA) Additional Past Medical History / Comment(s): states has scratches on legs Last Myocardial Infarction Date:: History of Any Multi-Drug Resistant Organisms: None Reported Past Surgical History: Heart Catheterization, Tonsillectomy Additional Past Surgical History / Comment(s): D&C x 2 Past Anesthesia/Blood Transfusion Reactions: No Reported Reaction Past Psychological History: Anxiety, Depression Smoking Status: Never smoker Past Alcohol Use History: None Reported Past Drug Use History: None Reported - Past Family History Father Family Medical History: Cancer Additional Family Medical History / Comment(s): Father of lung and prostate cancer at the age of 71 or 72 yrs. Mother Family Medical History: Coronary Artery Disease (CAD), CVA/TIA Additional Family Medical History / Comment(s): Mother of a CVA at the age of 87yrs. General Exam Limitations: no limitations General appearance: alert, in no apparent distress Head exam: Present: atraumatic, normocephalic, normal inspection Eye exam: Present: normal appearance, PERRL, EOMI. Absent: scleral icterus, conjunctival injection, periorbital swelling Neck exam: Present: normal inspection Respiratory exam: Present: normal lung sounds bilaterally. Absent: respiratory distress, wheezes, rales, rhonchi, stridor Cardiovascular Exam: Present: regular rate, normal rhythm, normal heart sounds. Absent: systolic murmur, diastolic murmur, rubs, gallop, clicks Extremities exam: Present: normal inspection, full ROM, normal capillary refill. Absent: tenderness, pedal edema, joint swelling, calf tenderness Neurological exam: Present: alert, oriented X3 Psychiatric exam: Present: normal affect, normal mood Skin exam: Present: warm, dry, intact, normal color, abrasion (Several abrasions covering up bilateral upper extremities from the elbows down to the wrist.). Absent: rash Course Vital Signs 04/07/21 13:57 Pulse Rate 76 Respiratory 18 Rate Blood Pressure 162/81 O2 Sat by Pulse 96 Oximetry Medical Decision Making - Medical Decision Making 65-year-old female with Scratches and bite to the right forearm. Patient was prescribed antibiotics with follow-up to primary care. Case discussed with Dr. Izquierdo, patient can discharge home. Disposition Clinical Impression: Cat bite Disposition: HOME SELF-CARE Condition: Stable Instructions (If sedation given, give patient instructions): Animal Bite (ED) Additional Instructions: Please return to the Emergency Department if symptoms worsen or any other concerns. Follow-up with primary care in 2 days. Take MRI chest prescribed until complete. Is patient prescribed a controlled substance at d/c from ED?: No Referrals: Clovis Izaguirre MD [Primary Care Provider] - 1-2 days Time of Disposition: 14:20
[2021-04-07 14:33] VITALS: TEMP 97.5
== END 2021-04-07 14:46 | disposition home or self-care (01) ==
LOC: EC 13:43
DX: S51.851A Open bite of right forearm, initial encounter (principal); E11.9 Type 2 diabetes mellitus without complications; I10 Essential (primary) hypertension; I25.2 Old myocardial infarction; E78.5 Hyperlipidemia, unspecified; K21.9 Gastro-esophageal reflux disease without esophagitis; M19.90 Unspecified osteoarthritis, unspecified site; F32.9 Major depressive disorder, single episode, unspecified; F41.9 Anxiety disorder, unspecified; Z79.02 Long term (current) use of antithrombotics/antiplatelets; Z79.4 Long term (current) use of insulin; Z79.899 Other long term (current) drug therapy; Z82.49 Family history of ischemic heart disease and other diseases of the circulatory system; W55.01XA Bitten by cat, initial encounter
CPT/HCPCS: 99283